=== PATIENT | male | born 1965 | race Caucasian/White ===

== ENCOUNTER → 2017-11-18 13:38 | Outpatient (CLI) | payer OTHER, SELFPAY ==
--- NOTE | 2017-11-18 14:24 | VDLE_ITS ---
Reason For Study: RLE PAIN RIGHT LEFT GSV is normal. CFV is compressible, spontaneous, phasic, CFV is compressible, spontaneous, phasic, competent, and demonstrates normal competent and demonstrates normal augmentation. augmentation. FV is compressible, spontaneous, phasic, competent and demonstrates normal augmentation. POP V is compressible, spontaneous, phasic, competent and demonstrates normal augmentation. T/P Trunk is compressible. PTV is compressible. RT PerV is compressible. Procedure Exam performed in department. The exam was diagnostic. A preliminary report was called and/or faxed to Dr. Ku @ [phone] @ 2:40 pm. Interpretation Summary Deep veins of the right lower extremity are patent and compressible segmentally. There is no evidence of right lower extremity deep vein thrombosis. Valvular competence appears intact within the proximal deep venous system on the right . The right greater saphenous vein appears patent and compressible segmentally. Ordering Physician: Baudilio Ku Referring Physician: Baudilio Ku Performed By: Chante Ferris, AMI, RVT
== END ==
PROVIDERS: Family Provider Family Medicine; PCP Family Medicine; Visit Provider Family Medicine
DX: M79.604 Pain in right leg (principal); R60.9 Edema, unspecified; S80.10XA Contusion of unspecified lower leg, initial encounter
CPT/HCPCS: 93971

== ENCOUNTER → 2018-05-26 05:56 | Outpatient (CLI) | payer OTHER, SELFPAY ==
[2018-05-26 06:37] LABS: AST(SGOT) 27 U/L (15-37); Alanine Aminotransfer ALT/SGPT 50 U/L (16-61); Albumin, Serum 3.7 g/dL (3.2-5.0); Alkaline Phosphatase 94 U/L (45-117); Anion Gap 8 (5-15); BUN 15 mg/dL (7-18); BUN/Creat Ratio 15.3 RATIO (10-20); Bilirubin, Direct 0.17 mg/dL (0.00-0.30); Calcium,Total 8.8 mg/dL (8.5-10.1); Chloride 104 mmol/L (98-107); Cholesterol 196 mg/dL (200); Creatinine, Serum 0.98 mg/dL (0.70-1.30); EST Glomerular Filtration Rate 85 mL/min (>60); Est Glom Filt Rate - Afr Amer 103 mL/min (>60); Globulin 4.6 g/dL (2.2-4.2); Glucose 104 mg/dL (74-106); High Density Lipoprotein 56 mg/dL; Potassium 4.2 mmol/L (3.5-5.1); Protein, Total 8.3 g/dL (6.4-8.2); Sodium Level 142 mmol/L (136-145); Thyroid Stim Hormone (TSH) 2.88 uIU/mL (0.358-3.74); Triglycerides 147 mg/dL; Very Low Density Lipoprotein 29 mg/dL (5-40)
--- NOTE | 2018-05-26 08:43 | STRESSREP ---
Stress Test Report Exercise myocardial perfusion stress test. 53-year-old man with a history of chest pain. Rest stress protocol: Resting EKG demonstrates normal sinus rhythm with a rate of 75 bpm normal intervals are noted resting blood pressure 174/98 mmHg. The patient exercised according to regular Raúl protocol for total duration of 8 minutes completing 2 minutes into stage III of the Raúl protocol. The maximum heart rate attained was 151 bpm which was 90% of maximum predicted heart rate the maximum workload was 10.1 metabolic equivalents. Occasional premature ventricular complexes were noted. At rest there were no ST or T wave changes noted suggest ischemia at peak exercise no ST or T wave changes were noted suggest ischemia. No clinical angina was noted shortness of breath however was noted. The resting blood pressure was 174/98 with a peak blood pressure of 240/110. Hypertensive blood pressure response to exercise was noted. Myocardial perfusion protocol. 14.7 mCi of technetium 99m sestamibi was injected at rest. The patient exercised according to regular Raúl protocol for total duration of 8 minutes attaining 90% of maximum predicted heart rate and a workload of 10.1 metabolic equivalents. Stress and rest images were reconstructed and compared in the short axis vertical and horizontal long axis. Gated images were also obtained pre- Perfusion SPECT analysis: Review of the stress images demonstrate normal uptake of tracer noted in all areas of the myocardium. The resting images similarly demonstrate normal uptake of tracer noted in all areas of the myocardium. No areas of reversibility are noted suggest ischemia. No previous infarct is noted. Gated SPECT analysis: The gated ejection fraction is 59%. Conclusion: Normal exercise myocardial perfusion stress test at a high workload. No clinical angina noted. Hypertensive response to exercise.
== END ==
PROVIDERS: Family Provider Family Medicine; PCP Family Medicine; Referring Provider Internal Medicine Cardiovascular Disease; Visit Provider Internal Medicine Cardiovascular Disease
DX: R07.9 Chest pain, unspecified (principal); I35.9 Nonrheumatic aortic valve disorder, unspecified; I42.9 Cardiomyopathy, unspecified; I10 Essential (primary) hypertension; E78.2 Mixed hyperlipidemia
CPT/HCPCS: 36415; 78452; 80048; 80061; 80076; 84443; 93017; A9500; A4216; J2785

== ENCOUNTER → 2018-06-14 07:34 | Outpatient (CLI) | payer OTHER, SELFPAY ==
--- NOTE | 2018-06-14 07:42 | ECHOD_ITS ---
Reason For Study: MURMUR Procedure This was a 2D Doppler, Color Flow transthoracic echocardiogram. Exam performed in department. Left Ventricle Normal LV size. The estimated ejection fraction is 50 %. Stage 1 diastolic dysfunction. There is borderline global hypokinesis of the left ventricle. Right Ventricle Normal RV size. Normal systolic function. Atria Normal left atrium. Normal right atrium. Mitral Valve Normal mitral valve. Tricuspid Valve Normal tricuspid valve. Aortic Valve Trisinus/trileaflet aortic valve. Mild focal aortic valve calcification. Mild (1+) eccentric aortic valve insufficiency. Pulmonic Valve Normal pulmonic valve. Great Vessels Normal aortic root. The pulmonary artery is normal size. Normal inferior vena cava. Pericardium/Pleural No pericardial effusion. MMode/2D Measurements & Calculations LVIDd: 4.7 cm IVSd: 0.92 cm LVOT diam: 2.1 cm LVIDs: 3.3 cm LVPWd: 0.94 cm LVOT area: 3.5 cm2 RVDd: 4.1 cm FS: 29.3 % Ao root diam: 3.5 cm LAV(MOD-bp): 48.3 ml LVAd ap4: 41.0 cm2 LA dimension: 3.4 cm LAV(MOD-bp) Indexed: 20.9 ml/m2 EDV(MOD-sp4): 143.3 ml LAV(MOD-sp2): 50.0 ml EDV(sp4-el): 146.0 ml LAV(MOD-sp4): 44.7 ml LVAs ap4: 25.2 cm2 ESV(MOD-sp4): 67.9 ml ESV(sp4-el): 69.4 ml EF(MOD-sp4): 52.6 % EF(sp4-el): 52.5 % SV(MOD-sp4): 75.4 ml SV(sp4-el): 76.6 ml LA A4 area: 17.5 cm2 LA dimension(2D): 3.4 cm RA A4 area: 13.5 cm2 Time Measurements MV dec time: 0.20 sec Doppler Measurements & Calculations MV E max jonas: 60.0 cm/sec Lat Peak E' Jonas: 8.3 cm/sec Med Peak E' Jonas: 7.7 cm/sec MV A max jonas: 76.1 cm/sec E/E' lat: 7.2 E/E' med: 7.8 MV E/A: 0.79 Ao V2 max: 257.4 cm/sec AI max jonas: 390.8 cm/sec LV V1 max: 82.4 cm/sec Ao max P.5 mmHg AI max P.1 mmHg LV V1 max P.7 mmHg Ao V2 mean: 192.0 cm/sec AI dec slope: 211.1 cm/sec2 LV V1 mean P.5 mmHg Ao mean P.0 mmHg AI P1/2t: 542.3 msec LV V1 mean: 58.7 cm/sec Ao V2 VTI: 57.1 cm LV V1 VTI: 20.3 cm MALCOM(I,D): 1.2 cm2 MALCOM(V,D): 1.1 cm2 SV(LVOT): 70.5 ml PA V2 max: 92.2 cm/sec Interpretation Summary Normal LV size. The estimated ejection fraction is 50 %. Stage 1 diastolic dysfunction. There is borderline global hypokinesis of the left ventricle. Mild (1+) eccentric aortic valve insufficiency. Ordering Physician: Priyank Gordon Referring Physician: DARIUS VALENTIN Performed By: Leigha Mcginnis RDCS
== END ==
PROVIDERS: Family Provider Family Medicine; PCP Family Medicine; Referring Provider Internal Medicine Cardiovascular Disease; Visit Provider Internal Medicine Cardiovascular Disease
DX: R01.1 Cardiac murmur, unspecified (principal)
CPT/HCPCS: 93306

== ENCOUNTER 2019-05-30 20:14 | Emergency (ER) | payer OTHER, SELFPAY ==
[2019-05-30 20:15] VITALS: BP 153/82; PULSE 57; RESP 24; TEMP 36; O2SAT 99; BMI 33.0
--- NOTE | 2019-05-30 20:30 | EKG12_ITS ---
Test Reason : Blood Pressure : / mmHG Vent. Rate : 068 BPM Atrial Rate : 068 BPM P-R Int : 206 ms QRS Dur : 092 ms QT Int : 418 ms P-R-T Axes : 025 023 030 degrees QTc Int : 444 ms Normal sinus rhythm Normal ECG Confirmed by TIFFANY HERNANDEZ, GIOVANNI ([id number]), marketing editor SHAYAN PRICE ([id number]) on 06/06/2019 11:09:06 AM Referred By: XENIA Confirmed By:OTONIEL ALLEN MD
--- NOTE | 2019-05-30 20:30 | RAD_ITS ---
STUDY: X-RAY CHEST REASON FOR EXAM: Male, 54 years old. Chest pain TECHNIQUE: Frontal and lateral views of the chest COMPARISON: None. FINDINGS: The lungs are clear. There are no pleural effusions. There is no pneumothorax. The heart is normal in size. The visualized osseous structures are within normal limits. RAD/Chest PA and Lateral IMPRESSION: No acute thoracic pathology. Electronically Signed: Donaldo Danielle, at 20:55 EDT Tel , Service support ,
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
[2019-05-30 20:54] LABS: Absolute Lymphocyte Count 1.75 X10^3/uL (0.83-4.51); Absolute Neutrophil Count 3.1 X10^3/uL (2.0-7.7); Basophil# 0.05 X10^3/uL; Basophil% 0.8 % (0-1); Eosinophil# 0.54 X10^3/uL; Eosinophils% 8.3 % (0-5); Hemoglobin 14.9 g/dL (13.0-16.5); Lymphocyte # 1.75 X10^3/ul (4.0); Lymphocyte % 26.9 % (19-41); Mean Corp Hgb Conc 34.7 g/dL (32-36); Mean Corpuscular Hgb 33.3 pg (27.0-32.0); Mean Platelet Vol. 9.2 fl (6.2-12.0); Monocyte# 1.06 X10^3/uL; Monocyte% 16.3 % (0-10); NRBC Flagged by Analyzer 0 % (0-5); Neutrophil # 3.07 X10^3/uL (2.7-7.7); Neutrophil % 47.2 % (47-70); Platelet Count 227 K/mm3 (150-450); RBC Distribution Width CV 11.8 % (11.6-14.6); Red Blood Count 4.48 M/mm3 (4.6-6.2); White Blood Count 6.5 K/mm3 (4.4-11.0)
[2019-05-30 20:57] VITALS: PULSE 72; RESP 16
[2019-05-30] MEDS: Albuterol 2.5 MG/3 ML VIAL.NEB. INHALATION ×3 (21:02→23:17)
[2019-05-30] MEDS: Ipratropium/Albuterol Sulfate 3 ML AMPUL.NEB INHALATION (21:02)
[2019-05-30 21:06] LABS: Anion Gap 9 (5-15); BUN 13 mg/dL (7-18); BUN/Creat Ratio 13.4 RATIO (10-20); Calcium,Total 9.3 mg/dL (8.5-10.1); Chloride 103 mmol/L (98-107); Creatinine, Serum 0.97 mg/dL (0.70-1.30); EST Glomerular Filtration Rate 86 mL/min (>60); Est Glom Filt Rate - Afr Amer 104 mL/min (>60); Estimated Creatinine Clearance 88.85 ml/min; Glucose 82 mg/dL (74-106); Potassium 3.6 mmol/L (3.5-5.1); Sodium Level 139 mmol/L (136-145)
[2019-05-30 21:23] LABS: BNP,B-Type NATRIURETIC PEPTIDE 16.9 pg/mL (0-100)
[2019-05-30] MEDS: MethylPREDNISolone 125 MG/2 ML Vial IV (22:17)
[2019-05-30] MEDS: Terbutaline 1 MG/ML Vial 0.25 MG SC (22:17)
[2019-05-30 22:25] VITALS: BP 148/80; PULSE 72; RESP 14; O2SAT 96
[2019-05-30 22:55] VITALS: PULSE 78; RESP 14
[2019-05-31 00:17] VITALS: BP 131/74; PULSE 78; RESP 15; O2SAT 94
== END 2019-05-31 00:20 | disposition home or self-care (01) ==
PROVIDERS: Emergency Provider Emergency Medicine; Family Provider Family Medicine; PCP Family Medicine
DX: J45.901 Unspecified asthma with (acute) exacerbation (principal); R07.89 Other chest pain; R60.0 Localized edema; I10 Essential (primary) hypertension; Z79.51 Long term (current) use of inhaled steroids; Z79.899 Other long term (current) drug therapy
CPT/HCPCS: 71046; 80048; 83880; 84484; 85025; 93005; 94640; 96365; 96366; 96372; 96375; 99283; J7050; A4216

== ENCOUNTER → 2020-04-14 07:41 | Outpatient (CLI) | payer OTHER, SELFPAY ==
--- NOTE | 2020-04-14 07:46 | VDLE_ITS ---
Reason For Study: Rt leg swelling RIGHT CFV is compressible, spontaneous, phasic, competent and demonstrates normal augmentation. FV is compressible, spontaneous, phasic, competent and demonstrates normal augmentation. POP V is compressible, spontaneous, phasic, competent and demonstrates normal augmentation. T/P Trunk is compressible. PTV is compressible. RT PerV is compressible. SFJ is competent and measures 0.57 x 0.55 cm. GSV proximal thigh measures 0.29 x 0.30 cm. GSV above knee is competent. GSV at knee measures 0.29 x 0.29 cm. GSV below knee is INCOMPETENT for greater than 0.5 seconds. SSV at junction is competent and measures 0.41 x 0.44 cm. Procedure Exam performed in department. Interpretation Summary Deep veins of the right lower extremity are patent and compressible segmentally. There is no evidence of right lower extremity deep vein thrombosis. Valvular competence appears intact within the proximal deep venous system on the right . The right great saphenous vein appears patent and compressible segmentally. The right sapheno-femoral junction is competent . The right great saphenous vein appears competent above the knee. The right great saphenous vein appears incompetent below the knee. The right small saphenous vein is patent and competent. Ordering Physician: Baudilio Ku Referring Physician: Baudilio Ku Performed By: Stephanie Magallon RVT
== END ==
PROVIDERS: PCP Family Medicine; Referring Provider Family Medicine; Visit Provider Family Medicine
DX: R60.0 Localized edema (principal); I87.2 Venous insufficiency (chronic) (peripheral)
CPT/HCPCS: 93971

== ENCOUNTER 2021-04-17 08:24 | Inpatient (IN) | payer OTHER, SELFPAY ==
[2021-04-17] VITALS (10 sets, daily range): BP systolic 118–152; BP diastolic 76–101; PULSE 90–111; RESP 18–28; TEMP 36.3–37.1; O2SAT 90–95; BMI 34.5; BMI 32.1
--- NOTE | 2021-04-17 09:27 | RAD_ITS ---
STUDY: X-RAY CHEST REASON FOR EXAM: Male, 55 years old. dyspnea TECHNIQUE: Single AP portable view of the chest. COMPARISON: 05/30/2019 FINDINGS: The lungs are clear and expanded. There is no demonstrated pleural abnormality. Normal size heart. Normal mediastinum and tosin. Normal visualized pulmonary arteries. Normal visualized aortic arch and descending thoracic aorta. Normal visualized thoracic spine. Normal visualized ribs, clavicles, and shoulders. There is no demonstrated abnormality of the visualized soft tissue structures of the upper abdomen. RAD/Chest 1 View (Portable) IMPRESSION: Normal x-ray examination of the chest. Electronically Signed: Kamari Hernandez MD at 10:26 EDT Tel , Service support ,
--- NOTE | 2021-04-17 09:28 | EKG12_ITS ---
Test Reason : SOB Blood Pressure : / mmHG Vent. Rate : 095 BPM Atrial Rate : 095 BPM P-R Int : 212 ms QRS Dur : 096 ms QT Int : 386 ms P-R-T Axes : 043 022 011 degrees QTc Int : 485 ms Sinus rhythm with 1st degree A-V block Prolonged QT Abnormal ECG Confirmed by TIFFANY HERNANDEZ, GIOVANNI ([id number]), film or videotape editor SHAYAN PRICE ([id number]) on 04/21/2021 8:33:31 AM Referred By: BERNARDO Confirmed By:OTONIEL ALLEN MD
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
[2021-04-17 10:15] LABS: Absolute Lymphocyte Count 0.68 X10^3/uL (0.83-4.51); Absolute Neutrophil Count 12.3 X10^3/uL (2.0-7.7); Basophil# 0.02 X10^3/uL; Basophil% 0.1 % (0-1); Hematocrit 44.6 % (40-54); Hemoglobin 15.1 g/dL (13.0-16.5); Lymphocyte # 0.68 X10^3/ul (0.83-4.51); Lymphocyte % 4.8 % (19-41); Mean Corp Hgb Conc 33.9 g/dL (32-36); Mean Corpuscular Hgb 32.1 pg (27.0-32.0); Mean Corpuscular Volume 94.7 fL (80-94); Mean Platelet Vol. 9.8 fl (6.2-12.0); Monocyte# 0.88 X10^3/uL; Monocyte% 6.2 % (0-10); NRBC Flagged by Analyzer 0 % (0-5); Neutrophil # 12.28 X10^3/uL (2.7-7.7); Neutrophil % 87.3 % (47-70); Platelet Count 451 K/mm3 (150-450); RBC Distribution Width CV 12.1 % (11.6-14.6); RBC Distribution Width SD 42.3 fl (35.1-43.9); Red Blood Count 4.71 M/mm3 (4.6-6.2); White Blood Count 14.1 K/mm3 (4.4-11.0)
[2021-04-17] MEDS: 0.9% Normal Saline 1,000 ML 15 ML IV (10:18)
[2021-04-17 10:42] LABS: D-Dimer Quantitative (DVT/PE) 7.14 FEU/ug/m (0.27-0.49)
[2021-04-17 10:44] LABS: Anion Gap 5 (5-15); BUN 16 mg/dL (7-18); BUN/Creat Ratio 23.4 RATIO (10-20); Calcium,Total 9.7 mg/dL (8.5-10.1); Chloride 106 mmol/L (98-107); Creatinine, Serum 0.68 mg/dL (0.70-1.30); EST Glomerular Filtration Rate 127 mL/min (>60); Est Glom Filt Rate - Afr Amer 153 mL/min (>60); Estimated Creatinine Clearance 129.19 ml/min; Glucose 138 mg/dL (74-106); Potassium 3.6 mmol/L (3.5-5.1); Sodium Level 140 mmol/L (136-145); Troponin-I HS 188 pg/mL (3.0-78.0)
--- NOTE | 2021-04-17 10:44 | CT_ITS ---
STUDY: CTA CHEST REASON FOR EXAM: Male, 55 years old. dyspnea elevated D-dimer RADIATION DOSAGE (If Supplied By Facility): CTDIvol = ( 13.14 ) mGy, DLP = ( 482.03 ) mGycm TECHNIQUE: The examination was performed with the intravenous administration of IV 100mL Isovue-370. Post-processing of the angiographic images was performed, with multiplanar reformation and 3D reconstruction. Individualized dose optimization techniques were used for this CT. COMPARISON: Chest x-ray earlier today FINDINGS: Normal enhancement of the main pulmonary artery and right and left pulmonary arteries. Normal enhancement of the bilateral peripheral pulmonary arteries. Multiple filling defects within segmental pulmonary artery branches in both lungs consistent with bilateral pulmonary emboli. The largest embolus is in the distal left main pulmonary artery and extends into the left ascending and descending pulmonary arteries. Normal thoracic aorta and visualized great vessels. There is no demonstrated aortic dissection. Normal heart and pericardium. Normal mediastinum. Normal hilar regions. Normal visualized trachea and bronchi. The lungs are well expanded. Bilateral patchy groundglass opacities consistent with subsegmental atelectasis or pneumonitis. Normal pleura. Normal chest wall structures. Normal osseous structures. Normal visualized upper abdomen. CT/CTA Chest W/WO Contrast IMPRESSION: 1. Positive for bilateral segmental pulmonary emboli. 2. Subsegmental atelectasis or pneumonitis. Commonly reported imaging features October 19 pneumonia are present. Other processes such as influenza pneumonia organized pneumonia as can be seen with drug toxicity or connective tissue disease can cause a similar imaging pattern. N.B. : The above Results were Read Back by Kamari Hernandez MD to Justino Black MD, and understanding confirmed on 04/17/2021 11:41:21 (ET). Electronically Signed: Kamari Hernandez MD at 11:41 EDT Tel , Service support ,
[2021-04-17] MEDS: levoFLOXacin IV 750 MG/150 ML BAG 100 MG IV (12:35)
[2021-04-17] MEDS: Enoxaparin 120 MG/0.8 ML Syringe SC (12:54)
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
[2021-04-17] MEDS: dexAMETHasone 2 MG TABLET 6 MG PO (17:30)
--- NOTE | 2021-04-17 19:18 | NURSING ---
pandemic charting started at 192
[2021-04-17] MEDS: Ipratropium/Albuterol Sulfate 3 ML AMPUL.NEB INHALATION (19:48)
[2021-04-17] MEDS: Budesonide Respules 0.5 MG/2 ML AMPUL.NEB. INHALATION (19:49)
[2021-04-17] MEDS: Carvedilol 25 MG Tablet PO (21:51)
[2021-04-17] MEDS: APIXABAN 5 MG TABLET 10 MG PO (21:52)
[2021-04-18] VITALS (14 sets, daily range): BP systolic 112–141; BP diastolic 65–97; PULSE 45–90; RESP 16–18; TEMP 36.3–36.6; O2SAT 89–96
[2021-04-18 06:56] LABS: Absolute Lymphocyte Count 0.78 X10^3/uL (0.83-4.51); Absolute Neutrophil Count 9.3 X10^3/uL (2.0-7.7); Basophil# 0.01 X10^3/uL; Basophil% 0.1 % (0-1); Hematocrit 41.7 % (40-54); Hemoglobin 13.8 g/dL (13.0-16.5); Lymphocyte # 0.78 X10^3/ul (0.83-4.51); Lymphocyte % 7.1 % (19-41); Mean Corp Hgb Conc 33.1 g/dL (32-36); Mean Corpuscular Hgb 31.8 pg (27.0-32.0); Mean Corpuscular Volume 96.1 fL (80-94); Mean Platelet Vol. 9.8 fl (6.2-12.0); Monocyte# 0.67 X10^3/uL; Monocyte% 6.1 % (0-10); NRBC Flagged by Analyzer 0 % (0-5); Neutrophil % 85.2 % (47-70); Platelet Count 430 K/mm3 (150-450); RBC Distribution Width CV 12.2 % (11.6-14.6); RBC Distribution Width SD 43.5 fl (35.1-43.9); Red Blood Count 4.34 M/mm3 (4.6-6.2); White Blood Count 10.9 K/mm3 (4.4-11.0)
[2021-04-18] MEDS: Budesonide Respules 0.5 MG/2 ML AMPUL.NEB. INHALATION ×2 (07:18→19:30)
[2021-04-18] MEDS: Ipratropium/Albuterol Sulfate 3 ML AMPUL.NEB INHALATION ×3 (07:18→19:30)
[2021-04-18 07:34] LABS: Anion Gap 8 (5-15); BUN 19 mg/dL (7-18); BUN/Creat Ratio 25.2 RATIO (10-20); Calcium,Total 9.1 mg/dL (8.5-10.1); Chloride 105 mmol/L (98-107); Creatinine, Serum 0.75 mg/dL (0.70-1.30); EST Glomerular Filtration Rate 113 mL/min (>60); Est Glom Filt Rate - Afr Amer 137 mL/min (>60); Estimated Creatinine Clearance 117.13 ml/min; Glucose 139 mg/dL (74-106); Potassium 3.5 mmol/L (3.5-5.1); Sodium Level 140 mmol/L (136-145)
[2021-04-18] MEDS: APIXABAN 5 MG TABLET 10 MG PO ×2 (08:53→19:52)
[2021-04-18] MEDS: amLODIPine 10 MG Tablet PO (08:55)
[2021-04-18] MEDS: Carvedilol 25 MG Tablet PO ×2 (08:55→19:56)
[2021-04-18] MEDS: Losartan Potassium 100 MG Tablet PO (08:55)
[2021-04-18] MEDS: hydroCHLOROthiazide 25 MG Tablet PO (08:55)
[2021-04-18] MEDS: dexAMETHasone 2 MG TABLET 6 MG PO (08:55)
[2021-04-18] MEDS: Montelukast 10 MG Tablet PO (08:55)
--- NOTE | 2021-04-18 14:44 | PCM.PN.HOSP ---
Subjective Subjective Doing about the same as when he came in. Still short of breath when he takes the oxygen off. We will plan for an ambulatory pulse ox in the morning Objective Data Objective Data Vital Signs: Vital Signs Temp Pulse Resp BP Pulse Ox 97.7 F L 88 18 141/97 H 93 04/18/21 08:51 04/18/21 13:11 04/18/21 13:11 04/18/21 08:51 04/18/21 11:46 Oxygen Flow Rate (L/min) 2 Oxygen Delivery Method Room Air Weight: 230 lb 2.601 oz Body Mass Index (BMI) 32.1 Intake & Output: Intake and Output for Last 24 Hours 04/17/21 04/18/21 04/19/21 03:59 03:59 03:59 Intake Total 692.75 / 692.75 620 / 620 Balance 692.75 / 692.75 620 / 620 Medical Nutrition Assessment Dietitian: Malnutrition Criteria Met Start: 04/17/21 15:09 Freq: Status: Active Protocol: Document 04/17/21 15:09 BECKI (Rec: 04/17/21 15:09 [facility] [id number]) Nutrition Malnutrition Evidence of Malnutrition Exists Yes Malnutrition (severe): Acute Illness/Injury Evidenced By Suboptimal Energy Intake ( Severe),Weight Loss (Severe) Clinical Problem Acute Disease or Injury Related Malnutrition Etiology related to Covid PNA and having inadequate energy to meet pt estimated nutritional needs Signs/Symptoms pt having <50% po intake and 5 .9% wt loss x >2 weeks Status Active Problem Recommendation Dietitian Recommendations/Changes Will change diet to liberal Regular with ensure enlive at meals d/t signs and symptoms of malnutrition. Lab / Micro Data Result Diagrams: 04/18/21 06:20 04/18/21 06:20 Labs: Laboratory Results - last 24 hr 04/18/21 06:20: WBC 10.9, RBC 4.34 L, Hgb 13.8, Hct 41.7, MCV 96.1 H, MCH 31.8, MCHC 33.1, RDW Std Deviation 43.5, RDW Coeff of Colin 12.2, Plt Count 430, MPV 9.8, Immature Gran % (Auto) 1.500 H, Neut % (Auto) 85.2 H, Lymph % (Auto) 7.1 L, [place] % (Auto) 6.1, Eos % (Auto) 0.0, Baso % (Auto) 0.1, Absolute Neuts (auto) 9.3 H, Absolute Lymphs (auto) 0.78 L, Nucleated RBC % 0 04/18/21 06:20: Sodium 140, Potassium 3.5, Chloride 105, Carbon Dioxide 27.0, Anion Gap 8, BUN 19 H, Creatinine 0.75, Estim Creat Clear Calc 117.13, Est GFR (MDRD) Af Amer 137, Est GFR (MDRD) Non-Af 113, BUN/Creatinine Ratio 25.2 H, Glucose 139 H, Calcium 9.1 Micro: Microbiology 04/17/21 17:37 Sputum, Expectorated/Coughed Gram Stain - Final 04/17/21 17:37 Sputum, Expectorated/Coughed Respiratory Culture - Preliminary Alpha Hemolytic Streptococcus Physical Exam Const alert, oriented x3 and no apparent distress General Appearance: cooperative HEENT normocephalic Eyes PERRL, EOMs intact bilaterally and conjunctivae normal Neck supple and no JVD Resp normal respiratory effort, no retractions and no use of accessory muscles Auscultation: diminished lung sounds; Negative for crackles, rales, rhonchi or wheezes Cardio regular rate, regular rhythm, S1 normal heart sound, S2 normal heart sound and no murmurs GI soft to palpation, non-tender and non-distended; Negative for hepatosplenomegaly Extremity no clubbing, cyanosis or edema Skin no rashes or lesions noted Neuro no focal motor deficits and no sensory deficits noted Psych affect normal Appearance: appropriate Assessment & Plan Assessment/Plan (1) Acute respiratory failure with hypoxia: (2) Pulmonary emboli: (3) Pneumonia due to COVID-19 virus: PLAN: 1. Acute hypoxic respiratory failure secondary to COVID-19 pneumonia and bilateral PEs with an elevated troponin -He has been tachycardic and hypoxic down to 87-88% especially with ambulation -Hypoxia resolved with 2 L nasal cannula -The combination of tachycardia with his hypoxia/in the setting of PEs is likely causing right-sided heart strain, will obtain an echo to confirm -He is unvaccinated and started having symptoms on 04/01/2021 he will be out of quarantine on 04/20/2021 -We will continue with Decadron, he is outside of the window for remdesivir -Received therapeutic Lovenox in the ED and will be started on Eliquis this evening 2. Asthma -We will continue with his home inhalers -Continue with Decadron 3. HTN/HLD -We will continue with his home blood pressure medications DVT: Eliquis Charges/Coding Visit Charges Inpatient E&M: 23338 Subs Hosp L2
--- NOTE | 2021-04-18 16:16 | CASEMGMT ---
LARISA BERGER called patient in room for initial transition planning/care coordination assessment. LARISA BERGER introduced self and role at [facility]. Patient lying in bed, alert and oriented. Patient willing to participate in assessment and is able to answer all questions appropriately. Care providers, pharmacy, and demographics verified. Patient wishes to discharge home, denies need for home health at this time, will monitor for home oxygen. Patient states he has no further needs or concerns at this time. CM to follow for discharge planning needs that may arise. PCP: [facility] Preferred Pharmacy: [facility] Ronna Insurance: [employer] Prescription Benefit: yes Living Will/HPOA: none LNOK: Living Arrangements: Patient lives with in a 2 story home with bed and bath on first floor. Patient states he is independent at home. is also sick with covid and isolating at home. Transportation: self, DME/HHC: patient states he has nebulizer at home. Patient denies previous HHC. Patient has no preferences for DME and agreeable to [facility] after review list. Patient had covid testing completed at [facility] Disposition Plan: Patient to discharge home with family support and follow-up plans in place. Will monitor for HHC. Stephanie ALEXANDER, RN, CM
[2021-04-18] MEDS: Acetaminophen 325 MG Tablet 650 MG PO (17:28)
[2021-04-18] MEDS: Ceftriaxone 1 GM/50 ML BAG IV (17:29)
[2021-04-19 02:00] VITALS: BP 127/68; PULSE 66; RESP 16; TEMP 36.3; O2SAT 93
[2021-04-19 03:00] VITALS: PULSE 68
[2021-04-19 06:35] VITALS: PULSE 73
[2021-04-19] MEDS: Ipratropium/Albuterol Sulfate 3 ML AMPUL.NEB INHALATION (07:31)
[2021-04-19 07:32] VITALS: PULSE 64; RESP 18; O2SAT 95
[2021-04-19] MEDS: Budesonide Respules 0.5 MG/2 ML AMPUL.NEB. INHALATION (07:32)
[2021-04-19 08:48] VITALS: BP 129/79; PULSE 64; RESP 18; TEMP 36.3; O2SAT 95
[2021-04-19] MEDS: Ceftriaxone 1 GM/50 ML BAG IV (08:53)
[2021-04-19] MEDS: Carvedilol 25 MG Tablet PO (08:54)
[2021-04-19] MEDS: amLODIPine 10 MG Tablet PO (08:54)
[2021-04-19] MEDS: APIXABAN 5 MG TABLET 10 MG PO (08:54)
[2021-04-19] MEDS: dexAMETHasone 2 MG TABLET 6 MG PO (08:54)
[2021-04-19] MEDS: hydroCHLOROthiazide 25 MG Tablet PO (08:54)
[2021-04-19] MEDS: 0.9% Saline Lock 10 ML Syringe IV (08:54)
[2021-04-19] MEDS: Losartan Potassium 100 MG Tablet PO (08:55)
[2021-04-19] MEDS: Montelukast 10 MG Tablet PO (08:55)
--- NOTE | 2021-04-19 11:12 | PCM.DC ---
Discharge Instructions Diet Discharge Diet: Low fat / Low cholesterol Activity Discharge Activity: Return to Normal Activity Dressing / Incision Call your doctor if you observe: Fever of 101 or Higher, Shortness of breath, Dizziness, Swelling in the ankles, Chest pain and Increased palpitations (irregular heartbeat) Follow Up Care Test Results: Test results from this visit will be discussed in further detail at your follow-up appointment, if applicable. Discharge Plan Admission Admit Date/Time: 04/17/21 12:07 Attending Provider: Mohan Rooney Primary Care Provider: Baudilio Ku Instructions Patient Instructions: ED Chest Pain, Noncardiac Additional Instructions / Restrictions: Quarantine will be completed on 04/20/2021. Recommend following up with hematology as an outpatient for evaluation of the blood thinner. Discharge Orders/Prescriptions Prescriptions: New Eliquis 5 mg Tablet 10 mg PO BID Qty: 60 RF: 2 dexamethasone 2 mg Tablet 6 mg PO DAILY Qty: 8 RF: 0 amoxicillin-pot clavulanate [Augmentin] 875-125 mg tablet 1 tab PO Q12H Qty: 10 RF: 0 Continued carvedilol 25 MG tablet 25 mg PO BID RF: 0 amlodipine 10 MG tablet 10 mg PO DAILY RF: 0 montelukast 10 MG tablet 10 mg PO DAILY RF: 0 losartan 100 MG tablet 100 mg PO DAILY RF: 0 albuterol sulfate 1 INHALER inhaler 2 puff inhalation Q4H PRN PRN (Reason: Sob &/Or Wheezing) RF: 0 ipratropium-albuterol 0.5 mg-3 mg(2.5 mg base)/3 mL Solution For Nebulization 3 ml INHALATION Q4H PRN (Reason: sob) RF: 0 Trelegy Ellipta 200-62.5-25 mcg Blister With Device 1 inh INHALATION DAILY RF: 0 hydrochlorothiazide 25 mg tablet 25 mg PO DAILY Qty: 90 RF: 3 Referrals / Follow Up: Genet Dixon MD [STAFF PHYSICIAN] - Within 3 Months Baudilio Ku DO [Primary Care Provider] - Within 1 Week Disposition Disposition (needs filled in before D/C Order can be placed): Home, Self Care
--- NOTE | 2021-04-19 13:12 | PCM.DC.SUM ---
Providers Date of Admission: 04/17/21 Primary Care Physician: Dr. Baudilio Ku DO Reason For Visit: COVID PNEUMONIA WITH BILATERAL PE Diagnosis Discharge Diagnosis (1) Acute respiratory failure with hypoxia: Status: Acute Code(s): J96.01 - Acute respiratory failure with hypoxia (2) Pulmonary emboli: Status: Acute Code(s): I26.99 - Other pulmonary embolism without acute cor pulmonale (3) Pneumonia due to COVID-19 virus: Status: Acute Code(s): U07.1 - COVID-19; J12.82 - Pneumonia due to coronavirus disease 2019 Medications at Discharge Home Medications amlodipine 10 mg PO DAILY 08/05/17 carvedilol 25 mg PO BID 08/05/17 losartan 100 mg PO DAILY 08/05/17 montelukast 10 mg PO DAILY 08/05/17 albuterol sulfate 2 puff INHALATION Q4H PRN PRN 05/30/19 hydrochlorothiazide 25 mg tablet 25 mg PO DAILY #90 tab 07/20/19 Trelegy Ellipta 1 inh INHALATION DAILY 04/17/21 ipratropium-albuterol 3 ml INHALATION Q4H PRN 04/17/21 amoxicillin-pot clavulanate [Augmentin] 1 tab PO Q12H #10 tab 04/19/21 apixaban [Eliquis] 10 mg PO BID #60 tab 04/19/21 dexamethasone [Decadron] 6 mg PO DAILY #8 tab 04/19/21 Hospital Course Operations None Procedures None Summary of Care Provided Minutes Spent on Discharge: 35 Hospital Course: Per HPI: ALISTAIR FUENTES, is a 55 M who presents to the hospital with worsening shortness of breath. He started having symptoms of Covid on 04/01/2021, and tested positive on 04/09/2021. His and other family members have also tested positive for Covid recently. Since his positive Covid test he has become more and more short of breath, he does have a history of asthma and presented to the ER. He was hypoxic with ambulation down to 88% and required 2 L nasal cannula to maintain his oxygen saturations at 94%. And evaluation in the ER, he had an elevated D-dimer consistent with blood clots and had a CTA and was found to have bilateral segmental blood clots. He was also found to have an elevated troponin. Hospital Course: 1. Acute hypoxic respiratory failure secondary to COVID-19 pneumonia and bilateral PEs with an elevated [id number] male presented to the hospital with bilateral PEs. He tested positive for Covid on 04/09/2021, symptoms started on 04/01/2021. He does complete quarantine tomorrow. He was started on Decadron was outside the window for remdesivir. He was also started on Eliquis dosing for his PEs and I do recommend that he follow-up with medical scientific officer as an outpatient. An echo was ordered on admission however for some reason this was not done and given the fact that it Tuesday and he did not want to wait till Tuesday to have this done therefore he was discharged home since he was stable and not requiring any oxygen on discharge. Did have an ambulatory pulse ox which also did not demonstrate a need for oxygen. He did have sputum culture with test positive for Streptococcus therefore he was discharged on Augmentin as well for 5 days total. I recommend he follow-up with his PCP in 3 to 5 days. I discussed with him the plan for discharge today and he expressed understanding of the risk and benefits and still wants to go home. 2. Asthma, hypertension, hyperlipidemia chronic medical conditions which complicate his care. His home medications were continued where appropriate Physical Exam Const alert, oriented x3 and no apparent distress General Appearance: cooperative HEENT normocephalic Eyes PERRL, EOMs intact bilaterally and conjunctivae normal Neck supple and no JVD Resp normal respiratory effort, no retractions and no use of accessory muscles Auscultation: diminished lung sounds; Negative for crackles, rales, rhonchi or wheezes Cardio regular rate, regular rhythm, S1 normal heart sound, S2 normal heart sound and no murmurs GI soft to palpation, non-tender and non-distended; Negative for hepatosplenomegaly Extremity no clubbing, cyanosis or edema Skin no rashes or lesions noted Neuro no focal motor deficits and no sensory deficits noted Psych affect normal Appearance: appropriate Weight / BMI Weight Weight: 230 lb 2.601 oz Body Mass Index (BMI) 32.1 ABG / Lab / Microbiology Data Result Diagrams: 04/18/21 06:20 04/18/21 06:20 Microbiology: Microbiology 04/17/21 17:37 Sputum, Expectorated/Coughed Gram Stain - Final 04/17/21 17:37 Sputum, Expectorated/Coughed Respiratory Culture - Preliminary Alpha Hemolytic Streptococcus 04/17/21 10:20 Blood Culture (Wb) - Left Hand Blood Culture - Preliminary No growth in 48 hours. 04/17/21 09:55 Blood Culture (Wb) - Anticubital Right Blood Culture - Preliminary No growth in 48 hours. D/C Instructions Discharge Diet: Low fat / Low cholesterol Call your doctor if you observe: Fever of 101 or Higher, Shortness of breath, Dizziness, Swelling in the ankles, Chest pain and Increased palpitations (irregular heartbeat) Meaningful Use Info Meaningful Use Diagnoses (Choose all that apply): None applicable Discharge Plan Admission Admit Date/Time: 04/17/21 12:07 Attending Provider: Mohan Rooney Primary Care Provider: Baudilio Ku Instructions Patient Instructions: ED Chest Pain, Noncardiac Additional Instructions / Restrictions: Quarantine will be completed on 04/20/2021. Recommend following up with hematology as an outpatient for evaluation of the blood thinner. Discharge Orders/Prescriptions Prescriptions: New amoxicillin-pot clavulanate [Augmentin] 875-125 mg tablet 1 tab PO Q12H Qty: 10 RF: 0 Eliquis 5 mg tablet 10 mg PO BID Qty: 60 RF: 2 dexamethasone [Decadron] 6 mg tablet 6 mg PO DAILY Qty: 8 RF: 0 Continued carvedilol 25 MG tablet 25 mg PO BID RF: 0 amlodipine 10 MG tablet 10 mg PO DAILY RF: 0 montelukast 10 MG tablet 10 mg PO DAILY RF: 0 losartan 100 MG tablet 100 mg PO DAILY RF: 0 albuterol sulfate 1 INHALER inhaler 2 puff inhalation Q4H PRN PRN (Reason: Sob &/Or Wheezing) RF: 0 ipratropium-albuterol 0.5 mg-3 mg(2.5 mg base)/3 mL Solution For Nebulization 3 ml INHALATION Q4H PRN (Reason: sob) RF: 0 Trelegy Ellipta 200-62.5-25 mcg Blister With Device 1 inh INHALATION DAILY RF: 0 hydrochlorothiazide 25 mg tablet 25 mg PO DAILY Qty: 90 RF: 3 Referrals / Follow Up: Genet Dixon MD [STAFF PHYSICIAN] - Within 3 Months Baudilio Ku DO [Primary Care Provider] - Within 1 Week Disposition Disposition (needs filled in before D/C Order can be placed): Home, Self Care Charges/Coding Visit Charges Inpatient E&M: 37216 Disch Hosp
--- NOTE | 2021-04-21 14:56 | CASEMGMT ---
LARISA BERGER Discharge Follow-up Phone Call: SHABNAM: Desmond Strata: 3 Call Date: 04/21/21 Discharge Date: 04/19/21 Time of Call: 1455 Duration: 5 min Admitting Diagnosis: Covid LARISA BERGER completed follow-up phone call after recent hospitalization. Patient states he is doing much better and his breathing has been well. Patient had no questions regarding discharge instructions. Patient had difficulty at first getting prescriptions fill as his pharmacy, [facility], was closed on Tuesday. Was able to get prescriptions fill at [facility] in [place]. Patient had no further questions or concerns at this time.
== END 2021-04-19 12:54 | disposition home or self-care (01) | DRG 177 ==
LOC: ED 11:51 → PCU 12:48
PROVIDERS: Admitting Provider Family Medicine; Emergency Provider Emergency Medicine; PCP Family Medicine; Visit Provider Family Medicine
DX: U07.1 COVID-19 (principal); J12.82 Pneumonia due to coronavirus disease 2019; I26.99 Other pulmonary embolism without acute cor pulmonale; J45.909 Unspecified asthma, uncomplicated; K21.9 Gastro-esophageal reflux disease without esophagitis; I10 Essential (primary) hypertension; R06.89 Other abnormalities of breathing; Z79.899 Other long term (current) drug therapy; Z79.51 Long term (current) use of inhaled steroids; Z28.3 Underimmunization status; E78.5 Hyperlipidemia, unspecified
CPT/HCPCS: 36415; 71045; 71275; 80048; 84484; 85025; 85379; 87040; 87070; 87077; 87186; 87205; 93005; 94640; 97802; 99284; J7030; Q9967; A4216

== ENCOUNTER → 2021-06-03 13:30 | Outpatient (CLI) | payer OTHER, SELFPAY ==
--- NOTE | 2021-06-03 13:34 | VDLE_ITS ---
Reason For Study: EDEMA RIGHT GSV is normal. CFV is compressible, spontaneous, phasic, competent and demonstrates normal augmentation. FV is compressible, spontaneous, phasic, competent and demonstrates normal augmentation. POP V is compressible, spontaneous, phasic, competent and demonstrates normal augmentation. T/P Trunk is compressible. PTV is compressible. RT PerV is compressible. Procedure This is a venous duplex using B-mode, color flow and spectral Doppler. Exam performed in department. The exam was diagnostic. A preliminary report was called and/or faxed to [facility]. VL/Venous Duplex US, Unilateral Interpretation Summary There is no evidence of right lower extremity deep vein thrombosis. Right great saphenous vein appears patent and compressible segmentally. Ordering Physician: CHANCE HAYDEN Referring Physician: Baudilio Ku Performed By: Chante Ferris RDCS, RVT
== END ==
PROVIDERS: PCP Family Medicine
DX: R60.0 Localized edema (principal)
CPT/HCPCS: 93971

== ENCOUNTER 2021-09-19 18:19 | Emergency (ER) | payer OTHER, SELFPAY ==
[2021-09-19 18:20] VITALS: BP 133/83; PULSE 80; RESP 18; TEMP 36.2; O2SAT 95; BMI 34.8
--- NOTE | 2021-09-19 18:32 | CT_ITS ---
HISTORY: Trauma, status post fall from ladder. EXAMINATION: CT Head or Brain W/O Contrast Injection TECHNIQUE: Multiple axial images were obtained of the head without intravenous contrast. A radiation dose optimization technique was used for this scan. IV Contrast dosage and agent: None. COMPARISON: None FINDINGS: BRAIN PARENCHYMA: No intra- or extra-axial hemorrhage. No evidence of acute infarct. No intracranial mass or mass effect. There is preservation of the more/white matter interface. Posterior fossa structures are unremarkable. CSF SPACES: Appropriate for age. No hydrocephalus. Basal cisterns are patent. CALVARIUM, SKULL BASE, PARANASAL SINUSES AND MASTOID AIR CELLS: Intact calvarium. No acute disease within imaged paranasal sinuses. Mastoid air cellls are well pneumatized. ORBITS: Unremarkable as visualized. CT/Brain/Head without Contrast IMPRESSION: No evidence of acute intracranial abnormality. Individualized dose optimization techniques were used for this CT. at 1957 Reported and signed by: Baudilio Spann MD Electronically Signed: Baudilio Spann MD at 19:55 EST ,
--- NOTE | 2021-09-19 18:32 | EKG12_ITS ---
Test Reason : FALL Blood Pressure : / mmHG Vent. Rate : 078 BPM Atrial Rate : 078 BPM P-R Int : 218 ms QRS Dur : 100 ms QT Int : 384 ms P-R-T Axes : 059 041 040 degrees QTc Int : 437 ms Sinus rhythm with 1st degree A-V block Otherwise normal ECG Confirmed by ANA HERNANDEZ, ZO ([id number]), assistant film editor SHAYAN PRICE ([id number]) on 09/21/2021 10:20:37 AM Referred By: BERNARDO Confirmed By:ZO PEREZ MD
--- NOTE | 2021-09-19 18:33 | CT_ITS ---
HISTORY: Trauma TECHNIQUE: Helically acquired images were obtained of the cervical spine. 2-D reformatted images were reviewed. A radiation dose optimization technique was used for the scan. # of images incl. paperwork: 464. IV contrast dosage and agent: None. COMPARISON: None. FINDINGS: VERTEBRAE: No fracture identified. Vertebral body heights are maintained. No suspicious osseous lesion identified. Hypertrophic facet changes on the right at C4-5. ALIGNMENT: No significant anterior or posterior subluxation. Preservation of the cervical lordosis. INTERVERTEBRAL DISCS: Intervertebral disc heights preserved. No significant spinal canal stenosis. SOFT TISSUES: No prevertebral soft tissue thickening. Couple small calcified nodules within left lobe of thyroid gland, largest measuring 12 mm in diameter. LUNG APICES: Unremarkable as visualized. CT/Spine Cervical without Contras IMPRESSION: No evidence of acute cervical spinal injury. Small calcified thyroid nodules. Follow-up as clinically warranted. Individualized dose optimization techniques were used for this CT. at 1959 Reported and signed by: Baudilio Spann MD Electronically Signed: Baudilio Spann MD at 19:58 EST ,
--- NOTE | 2021-09-19 18:44 | EDS_ITS ---
HPI HPI - Fall History of Present Illness Chief Complaint: Fall Narrative Narrative: 56-year-old male presenting for evaluation after a fall. Patient states he was on an 8 foot ladder changing a light in his house and his foot slipped because he was wearing socks and the ladder tipped backwards and swung him back and he landed on the floor on his left side. He did hit his head. He denies LOC but admits to seeing stars. He has pain in the left shoulder and left trapezius area. He is unable to move his left arm secondary to pain. He complains of pain in the left wrist and elbow as well. Patient also has injury to the right tibia which was stuck in the latter when he was swung to the ground. He has a superficial laceration and swelling over the tibia. He states that he was able to bear weight after the incident. He denies numbness and tingling below that area. Patient previously on Eliquis for PEs which he is no longer on since August. Patient is denying dizziness, lightheadedness. He denies nausea or vomiting. He denies abdominal pain. He does admit to some left-sided rib pain but is not having trouble breathing. [facility] Medical History Asthma Essential (primary) hypertension GERD (gastroesophageal reflux disease) Hypothyroidism Left ventricular systolic dysfunction Traumatic injury of right lower extremity (07/2017) Umbilical hernia Home Medications amlodipine 10 mg PO DAILY 08/05/17 [History Last Taken Unknown] carvedilol 25 mg PO BID 08/05/17 [History Last Taken Unknown] losartan 100 mg PO DAILY 08/05/17 [History Last Taken Unknown] montelukast 10 mg PO DAILY 08/05/17 [History Last Taken Unknown] albuterol sulfate 2 puff INHALATION Q4H PRN PRN 05/30/19 [History Last Taken Unknown] hydrochlorothiazide 25 mg tablet 25 mg PO DAILY #90 tab 07/20/19 [Rx Last Taken Unknown] Trelegy Ellipta 1 inh INHALATION DAILY 04/17/21 [History Last Taken Unknown] ipratropium-albuterol 3 ml INHALATION Q4H PRN 04/17/21 [History Last Taken Unknown] amoxicillin-pot clavulanate [Augmentin] 1 tab PO Q12H #10 tab 04/19/21 [Rx Last Taken Unknown] apixaban [Eliquis] 10 mg PO BID #60 tab 04/19/21 [Rx Last Taken Unknown] dexamethasone [Decadron] 6 mg PO DAILY #8 tab 04/19/21 [Rx Last Taken Unknown] Allergy/AdvReac Type Severity Reaction Status Date / Time No Known Allergies Allergy Verified 09/19/21 18:22 Family History Mother Heart disease CAD (coronary artery disease) Lung cancer Grandmother Heart disease Sister Thyroid cancer Father Stomach cancer Other Cancer Surgical History H/O left inguinal hernia repair H/O vasectomy History of elbow surgery History of tonsillectomy Social History household members: spouse Smoking Status: Never smoker second hand exposure: No alcohol intake: current alcohol intake frequency: 3 or more drinks per day Alcohol type: beer details: beer substance use type: does not use meliza/adventism: None seatbelt use: always do you feel safe at home: Yes ROS ROS ED Constitutional Constitutional ED: Denies chills, fever(s) or sweats Eyes Eyes: Denies blurry vision or diplopia ENT ENT ED: Denies rhinorrhea or sore throat Cardiovascular Cardiovascular: Reports chest pain Respiratory/Chest Respiratory/Chest: Denies cough or dyspnea Gastrointestinal Gastrointestinal: Denies abdominal pain, nausea or vomiting Genitourinary Genitourinary ED: Denies dysuria or hematuria Musculoskeletal Musculoskeletal: Reports neck pain and other Details: Left shoulder, elbow, wrist pain Integumentary Reports other Details: Superficial abrasion of the proximal tibia anteriorly and slight hematoma. Neurologic Neurologic: Reports headache(s) and paresthesias LUE Psychiatric Psychiatric: Denies anxiety or depression EXAM Physical Exam Const Vital Signs: 09/19/21 18:20 09/19/21 18:41 09/19/21 20:49 Temperature 97.2 F L Temperature Source Temporal Pulse Rate 80 84 Respiratory Rate 18 18 Respiratory Effort Normal Non-Labored Respiratory Depth Normal Respiratory Pattern Normal Blood Pressure 133/83 H Blood Pressure Mean 99 Pulse Ox 95 Oxygen Delivery Method Room Air Room Air 09/19/21 21:16 Temperature Temperature Source Pulse Rate 84 Respiratory Rate Respiratory Effort Respiratory Depth Respiratory Pattern Blood Pressure Blood Pressure Mean Pulse Ox Oxygen Delivery Method Positive obese General Appearance ED: NAD Nutritional Appearance: obese HEENT Reports normocephalic and TM's normal bilaterally atraumatic Eyes PERRL and EOMs intact bilaterally General Eye ED: Negative for pale conjunctiva or scleral icterus Neck Neck Narrative: Left cervical paraspinal muscular tenderness. General: tenderness Chest Wall Chest Narrative: Left upper chest wall tenderness. Equal symmetric breath sounds and chest wall rise. Resp normal respiratory effort and clear to auscultation bilaterally Cardio regular rate and regular rhythm GI non-tender and non-distended Palpation: soft Extremity Extremity Narrative: Superficial abrasion and hematoma over the right proximal tibia anteriorly. Patient able to plantarflex and dorsiflex his ankle. No foot pain. Right foot neurovascular intact with brisk cap refill to all 5 toes. Patient able to flex his hip and flex extend his knee without difficulty. Patient able to push against me with resistance with the right lower extremity. Neuro oriented x3 and CN's II-XII intact bilaterally Sensorium / Orientation: alert Psych mental status grossly normal and thought process normal Skin Skin Narrative: As documented above MDM MDM MDM Narrative Medical decision making narrative: Patient had significant fall in which he hit his head and now has left-sided trapezius pain, shoulder pain, diffuse arm pain but specifically states the wrist and shoulder are the worst. He is not having tenderness on his hand. Patient did hit his head and has a mild headache. He did not lose conscious. He is not currently on any blood thinners. Given this very is followed to do a trauma work-up. Patient CBC is unremarkable. BMP shows normal renal function. Sodium is 132 potassium 3.4. EtOH did return at 206. Patient does admit to drinking alcohol. I did sexual assault counselor him that climbing ladders and her socks over 8 feet while drinking is unwise. He stated that he could has been intoxicated because he was able to get up the ladder. Patient had a CT brain and cervical spine which were negative as interpreted by the radiologist. CT of the chest abdomen pelvis also obtained and negative for acute intrathoracic findings or intra-abdominal findings. There is nonspecific calcified nodules in the thyroid. The radiologist does not comment on a clinical age-indeterminate coracoid fracture. X-rays of the left elbow left elbow, left wrist on my interpretation showed no acute fractures or subluxation. X-ray of the left shoulder does show a small avulsion fracture/chip fracture of the coracoid x-ray of the left tib-fib also does not show any fracture but does show soft tissue swelling on my interpretation. The radiologist agree. Patient's wound was cleaned and dressed on his tibia. He is placed in a sling for comfort left shoulder does show a small chip fracture of the left coracoid on mitral rotation. Radiologist agree. Given patient's ultimate Manjit negative work-up I feel he safe to be discharged home. Patient given return precautions. Impression: 1. Fall 2. Closed head injury 3. Cervical strain 4. Left shoulder chip fracture 5. Left wrist contusion 6. Left elbow contusion 7. Right tibial contusion 8. Left tibial abrasion 9. EtOH intoxication Lab Data Labs: Laboratory Results - last 24 hr 09/19/21 09/19/21 09/19/21 18:45 18:45 18:45 WBC 7.7 RBC 4.84 Hgb 13.4 Hct 41.6 MCV 86.0 MCH 27.7 MCHC 32.2 RDW Std Deviation 44.5 H RDW Coeff of Colin 14.2 Plt Count 259 MPV 9.0 Immature Gran % (Auto) 0.600 Neut % (Auto) 61.1 Lymph % (Auto) 19.6 Stonewall % (Auto) 14.1 H Eos % (Auto) 4.0 Baso % (Auto) 0.6 Absolute Neuts (auto) 4.7 Absolute Lymphs (auto) 1.51 Nucleated RBC % 0 PT 12.5 INR 1.0 Sodium 132 L Potassium 3.4 L Chloride 98 Carbon Dioxide 26.0 Anion Gap 8 BUN 12 Creatinine 0.81 Estim Creat Clear Calc 107.17 Est GFR (MDRD) Af Amer 126 Est GFR (MDRD) Non-Af 104 BUN/Creatinine Ratio 14.7 Glucose 94 Calcium 8.8 Ethyl Alcohol 09/19/21 18:45 WBC RBC Hgb Hct MCV MCH MCHC RDW Std Deviation RDW Coeff of Colin Plt Count MPV Immature Gran % (Auto) Neut % (Auto) Lymph % (Auto) Stonewall % (Auto) Eos % (Auto) Baso % (Auto) Absolute Neuts (auto) Absolute Lymphs (auto) Nucleated RBC % PT INR Sodium Potassium Chloride Carbon Dioxide Anion Gap BUN Creatinine Estim Creat Clear Calc Est GFR (MDRD) Af Amer Est GFR (MDRD) Non-Af BUN/Creatinine Ratio Glucose Calcium Ethyl Alcohol 206.0 Radiography Diagnostic Testing: Clinical Impression(s) from Imaging Studies Brain CT 09/19/21 18:32 IMPRESSION: No evidence of acute intracranial abnormality. Individualized dose optimization techniques were used for this CT. at 1957 Reported and signed by: Baudilio Spann MD Electronically Signed: Baudilio Spann MD at 19:55 EST , Cervical Spine CT 09/19/21 18:33 IMPRESSION: No evidence of acute cervical spinal injury. Small calcified thyroid nodules. Follow-up as clinically warranted. Individualized dose optimization techniques were used for this CT. at 1959 Reported and signed by: Baudilio Spann MD Electronically Signed: Baudilio Spann MD at 19:58 EST , Chest/Abdomen/Pelvis CT 09/19/21 19:15 IMPRESSION: 1. No intrathoracic or intra-abdominal injury. 2. Equivocal age indeterminate avulsion fragment abutting left scapular coracoid process versus chronic ligamentous ossification. 3. Distended urinary bladder. 4. Colonic diverticulosis and other nonurgent findings within body of report. Individualized dose optimization techniques were used for this CT. at 2017 Reported and signed by: Baudilio Spann MD Electronically Signed: Baudilio Spann MD at 20:16 EST , Elbow X-Ray 09/19/21 19:24 IMPRESSION: Normal x-ray examination of the elbow. Electronically Signed: Marques Swan MD (Brooks) at 19:54 EST , Shoulder X-Ray 09/19/21 19:24 IMPRESSION: Possible small chip fracture from the coracoid process, new since 04/17/2021. Electronically Signed: Marques Swan MD (Brooks) at 19:52 EST , Tibia/Fibula X-Ray 09/19/21 19:24 IMPRESSION: Normal x-ray examination of the tibia and fibula. Electronically Signed: Marques Swan MD (Brooks) at 19:53 EST , Wrist X-Ray 09/19/21 19:24 IMPRESSION: Normal x-ray examination of the wrist. Electronically Signed: Marques Swan MD (Brooks) at 19:54 EST , Discharge Plan Triage Chief Complaint: Fall ED Provider: Bill Díaz Dx/Rx/DC Orders Instructions: ED Abrasion, ED Contusion, Lower Extremity, ED Alcohol Intoxication, ED Head Injury (Adult), ED Fracture, Shoulder, ED Fall Prevention Prescriptions: No Action carvedilol 25 MG tablet 25 mg PO BID RF: 0 amlodipine 10 MG tablet 10 mg PO DAILY RF: 0 montelukast 10 MG tablet 10 mg PO DAILY RF: 0 losartan 100 MG tablet 100 mg PO DAILY RF: 0 albuterol sulfate 1 INHALER inhaler 2 puff inhalation Q4H PRN PRN (Reason: Sob &/Or Wheezing) RF: 0 ipratropium-albuterol 0.5 mg-3 mg(2.5 mg base)/3 mL Solution For Nebulization 3 ml INHALATION Q4H PRN (Reason: sob) RF: 0 Trelegy Ellipta 200-62.5-25 mcg Blister With Device 1 inh INHALATION DAILY RF: 0 amoxicillin-pot clavulanate [Augmentin] 875-125 mg tablet 1 tab PO Q12H Qty: 10 RF: 0 Eliquis 5 mg tablet 10 mg PO BID Qty: 60 RF: 2 dexamethasone [Decadron] 6 mg tablet 6 mg PO DAILY Qty: 8 RF: 0 hydrochlorothiazide 25 mg tablet 25 mg PO DAILY Qty: 90 RF: 3 Primary Care Provider: Baudilio Ku Referrals: Baudilio Ku DO [Primary Care Provider] - Disposition Disposition: Home, Self Care Discharge Date/Time: 09/19/21 21:17
[2021-09-19 18:54] LABS: Absolute Lymphocyte Count 1.51 X10^3/uL (0.83-4.51); Absolute Neutrophil Count 4.7 X10^3/uL (2.0-7.7); Basophil# 0.05 X10^3/uL; Basophil% 0.6 % (0-1); Eosinophil# 0.31 X10^3/uL; Hematocrit 41.6 % (40-54); Hemoglobin 13.4 g/dL (13.0-16.5); Lymphocyte # 1.51 X10^3/ul (0.83-4.51); Lymphocyte % 19.6 % (19-41); Mean Corp Hgb Conc 32.2 g/dL (32-36); Mean Corpuscular Hgb 27.7 pg (27.0-32.0); Monocyte# 1.09 X10^3/uL; Monocyte% 14.1 % (0-10); NRBC Flagged by Analyzer 0 % (0-5); Neutrophil # 4.71 X10^3/uL (2.7-7.7); Neutrophil % 61.1 % (47-70); Platelet Count 259 K/mm3 (150-450); RBC Distribution Width CV 14.2 % (11.6-14.6); RBC Distribution Width SD 44.5 fl (35.1-43.9); Red Blood Count 4.84 M/mm3 (4.6-6.2); White Blood Count 7.7 K/mm3 (4.4-11.0)
[2021-09-19] MEDS: fentaNYL 100 MCG/2 ML Ampul 25 MCG IV (18:55)
[2021-09-19] MEDS: Ondansetron 4 MG/2 ML Vial IV (18:55)
[2021-09-19] MEDS: 0.9% Normal Saline 1,000 ML 999 ML IV (18:56)
[2021-09-19 19:03] LABS: Prothrombin Time (Protime)PT. 12.5 SECONDS (11.7-14.9)
[2021-09-19 19:09] LABS: Anion Gap 8 (5-15); BUN 12 mg/dL (7-18); BUN/Creat Ratio 14.7 RATIO (10-20); Calcium,Total 8.8 mg/dL (8.5-10.1); Chloride 98 mmol/L (98-107); Creatinine, Serum 0.81 mg/dL (0.70-1.30); EST Glomerular Filtration Rate 104 mL/min (>60); Est Glom Filt Rate - Afr Amer 126 mL/min (>60); Estimated Creatinine Clearance 107.17 ml/min; Glucose 94 mg/dL (74-106); Potassium 3.4 mmol/L (3.5-5.1); Sodium Level 132 mmol/L (136-145)
--- NOTE | 2021-09-19 19:15 | CT_ITS ---
HISTORY: Trauma, status post fall from ladder TECHNIQUE: Helically acquired images were obtained of the chest, abdomen, and pelvis following IV contrast. Sagittal and coronal reformats reviewed. A radiation dose optimization technique was used for this scan. IV Contrast dosage and agent: 100 mL Isovue-370 Oral contrast: None. COMPARISON: None FINDINGS: ----Chest: HEART AND PERICARDIUM: Heart size upper limits normal. No significant pericardial effusion. VESSELS: No thoracic aortic aneurysm or dissection. Great vessels are patent. There is no central pulmonary embolism although this study was not performed with the pulmonary embolism protocol. MEDIASTINUM AND ANTOINETTE: No pathologically enlarged mediastinal or hilar lymph nodes. Esophagus is unremarkable. OTHER SOFT TISSUES: Couple small calcified nodules within left lobe of thyroid gland, follow-up as clinically warranted. No chest wall mass or significant soft tissue swelling. LUNGS AND LARGE AIRWAYS: No pulmonary contusion, consolidation, mass or edema. No pneumothorax. PLEURA: No pleural effusion or pleural thickening. BONES: Small subcentimeter osseous fragment abutting left scapular coracoid process. Remaining osseous structures appear intact. ----Abdomen/Pelvis: LIVER: Homogeneous. No concerning lesion. GALLBLADDER AND BILIARY TREE: No calcified gallstones. There is no gallbladder distension or wall edema. No intra- or extrahepatic biliary ductal dilation. KIDNEYS AND URETERS: Normal renal size and position. There are a few bilateral subcentimeter, low-attenuation renal cysts requiring no additional follow-up. No renal laceration, hematoma or concerning lesion. No perinephric inflammation or hydronephrosis. ADRENAL GLANDS: Non-enlarged. SPLEEN: Normal size without discrete lesion. PANCREAS: No discrete lesion or peripancreatic inflammation. BOWEL: No evidence of acute appendicitis. No abnormal stomach or bowel distension. Scattered colonic diverticula. No focal inflammatory change observed. LYMPH NODES: No enlarged mesenteric or retroperitoneal lymph nodes. PERITONEUM: No ascites or free air. No other fluid collection. VESSELS: Mild atherosclerosis. URINARY BLADDER: Distended and intact urinary bladder with no significant wall thickening. REPRODUCTIVE ORGANS: Dystrophic calcifications within prostate gland. Prostate gland is not significantly enlarged. ABDOMINAL WALL: Moderate size right inguinal fat hernia and small left inguinal fat hernia. BONES: Intact with no suspicious osseous lesion. CT/CT Chest, Abd, Pel w/Contrast IMPRESSION: 1. No intrathoracic or intra-abdominal injury. 2. Equivocal age indeterminate avulsion fragment abutting left scapular coracoid process versus chronic ligamentous ossification. 3. Distended urinary bladder. 4. Colonic diverticulosis and other nonurgent findings within body of report. Individualized dose optimization techniques were used for this CT. at 2017 Reported and signed by: Baudilio Spann MD Electronically Signed: Baudilio Spann MD at 20:16 EST ,
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
--- NOTE | 2021-09-19 19:24 | RAD_ITS ---
STUDY: X-RAY - LEFT SHOULDER REASON FOR EXAM: Male, 56 years old. PAIN S/P FALL OFF OF 8 FOOT LADDER ONTO LEFT SIDE, RIGHT LEG STUCK IN LADDER TECHNIQUE: 2 view(s) of the shoulder. COMPARISON: None. FINDINGS: Normal glenohumeral articulation. There is hypertrophic osteoarthrosis of the acromioclavicular joint with inferior osseous spur formation. Normal acromion. Normal humeral head and visualized proximal humerus. Small osseous density lateral to the coracoid process. The soft tissue structures are unremarkable. Normal visualized pulmonary apex. RAD/Shoulder min 2 Views IMPRESSION: Possible small chip fracture from the coracoid process, new since 04/17/2021. Electronically Signed: Marques Swan MD ([place]) at 19:52 EST ,
--- NOTE | 2021-09-19 19:24 | RAD_ITS ---
STUDY: X-RAY - LEFT WRIST REASON FOR EXAM: Male, 56 years old. PAIN S/P FALL OFF OF 8 FOOT LADDER ONTO LEFT SIDE, RIGHT LEG STUCK IN LADDER TECHNIQUE: 3 view(s) of the wrist were obtained. COMPARISON: None. FINDINGS: Normal visualized distal radius and ulna. Normal radiocarpal articulation. Normal distal radioulnar articulation. Normal carpal bones. Normal carpal articulations. Normal carpometacarpal articulation of the thumb. Normal second through fifth carpometacarpal articulations. Normal visualized metacarpal bones. The soft tissue structures are unremarkable. RAD/Wrist min 3 Views IMPRESSION: Normal x-ray examination of the wrist. Electronically Signed: Marques Swan MD ([place]) at 19:54 EST ,
--- NOTE | 2021-09-19 19:24 | RAD_ITS ---
STUDY: X-RAY - LEFT ELBOW REASON FOR EXAM: Male, 56 years old. PAIN S/P FALL OFF OF 8 FOOT LADDER ONTO LEFT SIDE, RIGHT LEG STUCK IN LADDER TECHNIQUE: 3 view(s) of the elbow. COMPARISON: None. FINDINGS: Normal visualized humerus, radius and ulna. Normal radiocapitellar and ulnotrochlear articulations. The soft tissue structures are unremarkable. RAD/Elbow min 3 Views IMPRESSION: Normal x-ray examination of the elbow. Electronically Signed: Marques Swan MD ([place]) at 19:54 EST ,
[2021-09-19 20:49] VITALS: PULSE 84; RESP 18
[2021-09-19 21:16] VITALS: PULSE 84
== END 2021-09-19 21:17 | disposition home or self-care (01) ==
PROVIDERS: Emergency Provider Student in an Organized Health Care Education/Training Program; PCP Family Medicine; Visit Provider Student in an Organized Health Care Education/Training Program
DX: S09.90XA Unspecified injury of head, initial encounter (principal); F10.129 Alcohol abuse with intoxication, unspecified; S16.1XXA Strain of muscle, fascia and tendon at neck level, initial encounter; S42.92XA Fracture of left shoulder girdle, part unspecified, initial encounter for closed fracture; S60.212A Contusion of left wrist, initial encounter; S50.02XA Contusion of left elbow, initial encounter; S80.11XA Contusion of right lower leg, initial encounter; S80.812A Abrasion, left lower leg, initial encounter; E66.9 Obesity, unspecified; W11.XXXA Fall on and from ladder, initial encounter
CPT/HCPCS: 70450; 71260; 72125; 73030; 73080; 73110; 73590; 74177; 80048; 82077; 85025; 85610; 93005; 96374; 96375; 99285; J7030; Q9967; A4216; J2405

== ENCOUNTER 2022-08-03 09:24 | Outpatient (RCR) | payer OTHER, SELFPAY ==
[2022-08-03 10:28] VITALS: BP 163/104; PULSE 76; RESP 18; TEMP 36.3; BMI 34.8
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
== END 2022-08-14 23:59 | disposition home or self-care (01) ==
LOC: WC 09:24
PROVIDERS: PCP Family Medicine; Visit Provider Surgery
DX: I83.212 Varicose veins of right lower extremity with both ulcer of calf and inflammation (principal); L97.212 Non-pressure chronic ulcer of right calf with fat layer exposed; I10 Essential (primary) hypertension; R60.0 Localized edema; Z87.891 Personal history of nicotine dependence; E66.9 Obesity, unspecified; J45.909 Unspecified asthma, uncomplicated; Z79.899 Other long term (current) drug therapy
CPT/HCPCS: 11042; 99213; G0463

== ENCOUNTER 2022-08-17 09:47 | Outpatient (RCR) | payer OTHER, SELFPAY ==
[2022-08-15 00:39] VITALS: BP 163/104; PULSE 76; RESP 18; TEMP 36.3; BMI 34.8
[2022-08-17 10:01] VITALS: BP 148/93; PULSE 88; TEMP 36.2; BMI 34.8
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
== END 2022-08-18 15:52 | disposition home or self-care (01) ==
LOC: WC 09:47
PROVIDERS: PCP Family Medicine; Visit Provider Surgery
DX: I83.212 Varicose veins of right lower extremity with both ulcer of calf and inflammation (principal); L97.219 Non-pressure chronic ulcer of right calf with unspecified severity; R60.0 Localized edema; I10 Essential (primary) hypertension; G89.29 Other chronic pain; E66.9 Obesity, unspecified; J45.909 Unspecified asthma, uncomplicated; Z87.891 Personal history of nicotine dependence; Z98.52 Vasectomy status; I83.11 Varicose veins of right lower extremity with inflammation; M79.89 Other specified soft tissue disorders; Z87.19 Personal history of other diseases of the digestive system
CPT/HCPCS: 99213; G0463

== ENCOUNTER → 2022-11-23 | Outpatient (CLI) | payer OTHER, SELFPAY ==
--- NOTE | 2022-11-23 06:30 | RAD_ITS ---
EXAM: XR CHEST, 2 VIEWS CLINICAL INDICATION: ASTHMA,DYSPNEA TECHNIQUE: Frontal and lateral views of the chest. This report was created using [employer] report generation technology. COMPARISON: Previous chest radiograph of 04/17/2021. CT of 09/19/2021. FINDINGS: LUNGS AND PLEURAL SPACES: Lungs are clear except for minimal discoid atelectasis in the left mid-lower lung laterally. No pulmonary edema. No pneumonia. No peribronchial cuffing. Lungs are not hyperinflated. HEART: Heart size is upper normal with normal pulmonary vasculature. MEDIASTINUM: Thoracic aorta is not elongated. No mediastinal widening. Trachea is midline. BONES/JOINTS: Lower thoracic degenerative spurring. No acute osseous abnormality. SOFT TISSUES: Unremarkable. RAD/Chest PA and Lateral IMPRESSION: No significant interval change or acute abnormality. Electronically Signed: Estiven Mckinney MD at 7:26 EDT ,
[2022-11-23 07:22] LABS: Absolute Lymphocyte Count 1.22 X10^3/uL (0.83-4.51); Absolute Neutrophil Count 4.3 X10^3/uL (2.0-7.7); Basophil# 0.05 X10^3/uL; Basophil% 0.7 % (0-1); Eosinophil# 0.42 X10^3/uL; Eosinophils% 6.2 % (0-5); Hematocrit 47.5 % (40-54); Lymphocyte # 1.22 X10^3/ul (0.83-4.51); Mean Corp Hgb Conc 33.7 g/dL (32-36); Mean Corpuscular Hgb 33.3 pg (27.0-32.0); Mean Platelet Vol. 9.8 fl (6.2-12.0); Monocyte# 0.72 X10^3/uL; Monocyte% 10.6 % (0-10); NRBC Flagged by Analyzer 0 % (0-5); Neutrophil # 4.32 X10^3/uL (2.7-7.7); Neutrophil % 63.6 % (47-70); Platelet Count 224 K/mm3 (150-450); RBC Distribution Width CV 11.9 % (11.6-14.6); RBC Distribution Width SD 43.7 fl (35.1-43.9); White Blood Count 6.8 K/mm3 (4.4-11.0)
[2022-11-23 08:00] LABS: ALB/GLOB Ratio 0.9 RATIO (0.9-2.4); AST(SGOT) 64 U/L (15-37); Alanine Aminotransfer ALT/SGPT 97 U/L (16-61); Albumin, Serum 3.8 g/dL (3.2-5.0); Alkaline Phosphatase 96 U/L (45-117); Anion Gap 7 (5-15); BUN 10 mg/dL (7-18); BUN/Creat Ratio 12.8 RATIO (10-20); Calcium,Total 9.2 mg/dL (8.5-10.1); Chloride 102 mmol/L (98-107); Creatinine, Serum 0.78 mg/dL (0.70-1.30); EST Glomerular Filtration Rate 108 mL/min (>60); Est Glom Filt Rate - Afr Amer 131 mL/min (>60); Globulin 4.2 g/dL (2.2-4.2); Glucose 106 mg/dL (74-106); Potassium 3.6 mmol/L (3.5-5.1); Sodium Level 136 mmol/L (136-145)
[2022-11-24 11:16] LABS: Alpha Antitrypsin Serum 146 mg/dL (101-187)
[2022-11-25 22:21] LABS: Immunoglobulin E 312 IU/mL (6-495)
== END | disposition home or self-care (01) ==
PROVIDERS: PCP Family Medicine; Referring Provider Nurse Practitioner; Visit Provider Nurse Practitioner
DX: E55.9 Vitamin D deficiency, unspecified (principal); D84.9 Immunodeficiency, unspecified; E07.9 Disorder of thyroid, unspecified; L50.1 Idiopathic urticaria; J32.9 Chronic sinusitis, unspecified; R06.00 Dyspnea, unspecified; J45.50 Severe persistent asthma, uncomplicated; J30.9 Allergic rhinitis, unspecified; T78.3XXD Angioneurotic edema, subsequent encounter; T78.09XD Anaphylactic reaction due to other food products, subsequent encounter; Z91.038 Other insect allergy status
CPT/HCPCS: 36415; 71046; 80053; 82103; 82785; 85025

== ENCOUNTER 2023-03-18 10:16 | Outpatient (CLI) | payer OTHER, SELFPAY ==
[2023-03-18 10:40] VITALS: BP 147/80; PULSE 88; RESP 16; TEMP 37.1; O2SAT 96; BMI 36.2
[2023-03-18] MEDS: Omalizumab 150 MG/ML Syringe 300 MG SC (10:48)
[2023-03-18 12:53] VITALS: BP 147/81; PULSE 85; RESP 16; TEMP 36.7; O2SAT 93
== END 2023-03-18 10:17 | disposition home or self-care (01) ==
LOC: MEDOUTP 10:16
PROVIDERS: PCP Family Medicine; Referring Provider Nurse Practitioner; Visit Provider Nurse Practitioner
DX: J45.50 Severe persistent asthma, uncomplicated (principal)
CPT/HCPCS: 96372; J2357

== ENCOUNTER 2023-04-01 09:45 | Outpatient (CLI) | payer OTHER, SELFPAY ==
[2023-04-01 09:54] VITALS: BP 148/87; PULSE 94; RESP 16; TEMP 36.6; O2SAT 94; BMI 36.2
[2023-04-01] MEDS: Omalizumab 150 MG/ML Syringe 300 MG SQ (09:57)
== END 2023-04-01 09:46 | disposition home or self-care (01) ==
LOC: MEDOUTP 09:45
PROVIDERS: PCP Family Medicine; Referring Provider Nurse Practitioner; Visit Provider Nurse Practitioner
DX: J45.50 Severe persistent asthma, uncomplicated (principal)
CPT/HCPCS: 96372; J2357

== ENCOUNTER 2023-04-14 10:16 | Outpatient (CLI) | payer OTHER, SELFPAY ==
[2023-04-14 10:21] VITALS: BP 137/88; PULSE 83; RESP 16; TEMP 36.4; O2SAT 94
[2023-04-14] MEDS: Omalizumab 150 MG/ML Syringe 300 MG SQ (10:45)
== END 2023-04-14 10:17 | disposition home or self-care (01) ==
PROVIDERS: PCP Family Medicine; Referring Provider Nurse Practitioner; Visit Provider Nurse Practitioner
DX: J45.50 Severe persistent asthma, uncomplicated (principal)
CPT/HCPCS: 96372; J2357

== ENCOUNTER → 2023-06-10 | Outpatient (CLI) | payer OTHER, SELFPAY | END | disposition home or self-care (01) | LOC: RAD.FUTURE 20:04 | PROVIDERS: PCP Family Medicine; Visit Provider Family Medicine | DX: R05.3 Chronic cough (principal) ==

== ENCOUNTER → 2023-08-23 | Outpatient (CLI) | payer OTHER, SELFPAY ==
--- NOTE | 2023-08-23 10:10 | RAD_ITS ---
STUDY: X-RAY CHEST REASON FOR EXAM: Male, 58 years old. Chronic cough. TECHNIQUE: Frontal and lateral views of the chest on 3 images. COMPARISON: November 23, 2022 FINDINGS: The lungs are clear and expanded. There is no demonstrated pleural abnormality. Normal size heart. Normal mediastinum and tosin. Normal visualized pulmonary arteries. Normal visualized aortic arch and descending thoracic aorta. Stable diffuse thoracic spondylosis with increased kyphosis. Normal visualized ribs, clavicles, and shoulders. No abnormality of the visualized soft tissue structures of the upper abdomen. RAD/Chest PA and Lateral IMPRESSION: Stable chest with no acute or active cardiopulmonary disease. Electronically Signed: Tobin Person MD at 10:32 EST ,
--- OUTSIDE RECORDS SUMMARY | 2023-08-23 11:22 | XMS RPT_ITS | CCD ---
Author Name Unknown Address [address] [place] [address] Organization [facility] Care Team Providers Care Cashier Associate Name Role Phone Abner Blair MD Unavailable Medications Completed/Discontinued Medications Medication Drug Class(es) Dates Sig (Normalized) Sig (Original) 60 actuat albuterol 0.09 mg/actuat metered dose inhaler (1 source) beta2-Adrenergic Agonist Start: 08-03-2019 VENTOLIN HFA 108 (90 Base) MCG/ACT AERS as directed as needed ALBUTEROL SULFATE [id number] Alondra Leal LPN 120 actuat budesonide 0.16 mg/actuat / formoterol fumarate 0.0045 mg/actuat metered dose inhaler (1 source) Corticosteroid, beta2-Adrenergic Agonist Start: 08-03-2019 SYMBICORT 160-4.5 MCG/ACT AERO 2 puffs twice daily BUDESONIDE-FORMOT BUTCH FUMARATE [id number] Alondra Leal LPN carvedilol 25 mg oral tablet (1 source) alpha-Adrenergic Carleen, beta-Adrenergic Carleen Start: 08-03-2019 CARVEDILOL 25 MG TABS 1 tablet twice daily CARVEDILOL [id number] Alondra Leal LPN losartan potassium 100 mg oral tablet (1 source) Angiotensin 2 Receptor Carleen Start: 08-03-2019 LOSARTAN POTASSIUM 100 MG TABS 1 tablet daily LOSARTAN POTASSIUM [id number] Alondra Leal LPN tiotropium 0.018 mg inhalant powder (1 source) Anticholinergic Start: 08-03-2019 SPIRIVA HANDIHALER 18 MCG CAPS 1 puff daily TIOTROPIUM BROMIDE MONOHYDRATE [id number] Alondra Leal LPN Problems Active Problems Problem Classification Problem Date Documented Da te Episodic/Chronic Osteoarthritis (1 source) Unilateral primary osteoarthritis, right knee; Translations: [Unilateral primary osteoarthritis, right knee] Onset: 08-22-2019 08-22-2019 Chronic Past or Other Problems Problem Classification Problem Date Documented Da te Episodic/Chronic Joint disorders and dislocations; trauma-related (1 source) Other tear of medial meniscus, current injury, right knee, initial encounter; Translations: [Other tear of medial meniscus, current injury, right knee, initial encounter] Onset: 08-22-2019 08-22-2019 Episodic Other non-traumatic joint disorders (1 source) Effusion, right knee; Translations: [Effusion, right knee] Onset: 08-22-2019 08-22-2019 Episodic Unclassified (1 source) Problem Results Test Name Value Interpretation Reference Range Facil ity Vital Signs Date Time Vital Sign Value Performing Clinician Facility NEGATED: Highlighted [id number] 14:01-0500 BMI (Body Mass Index) 33.45 kg/m2 Donaldo Godinez [employer] [facility] Work Phone: NEGATED: Highlighted [id number] 14:01-0500 Body weight 108.41 kg Donaldo Godinez [employer] [facility] Work Phone: NEGATED: Highlighted [id number] 14:01-0500 Body weight 109 kg Donaldo Godinez [employer] [facility] Work Phone: NEGATED: Highlighted [id number] 14:01-0500 BP Diastolic 95 mm[Hg] Donaldo Godinez [employer] [facility] Work Phone: NEGATED: Highlighted [id number] 14:01-0500 BP Diastolic 94 mm[Hg] Donaldo Godinez [employer] [facility] Work Phone: NEGATED: Highlighted [id number] 14:01-0500 BP Systolic 156 mm[Hg] Donaldo Godinez [employer] [facility] Work Phone: NEGATED: Highlighted [id number] 14:01-0500 BP Systolic 154 mm[Hg] Donaldo Godinez ALEIDA [facility] Work Phone: NEGATED: Highlighted [id number] 14:01-0500 Heart rate 2+ Donaldo Godinez [employer] [facility] Work Phone: NEGATED: Highlighted [id number] 14:050 Height 180.34 cm Donaldo Godinez [employer] [facility] Work Phone: NEGATED: Highlighted [id number] 14:050 Height 180 cm Donaldo Godinez [employer] [facility] Work Phone: NEGATED: Highlighted [id number] 14:0500 Pulse (Heart Rate) 76 /min Donaldo Godinez [employer] [facility] Work Phone: Encounters Encounter Date Encounter Type Care Provider Facility Start: 08-22-2019 End: 08-22-2019 Patient encounter procedure Abner Blair MD Work Phone: [facility] Work Phone: Procedures Date Procedure Procedure Detail Performing Clinician Start: 08-22-2019 End: 08-22-2019 Arthrocentesis aspir&/inj major jt/bursa w/o us Abner Blair MD Work Phone: Start: 08-22-2019 End: 08-22-2019 Blood pressure outside of normal parameters - follow-up documented Abner Blair MD Work Phone: Start: 08-22-2019 End: 08-22-2019 BMI documented as above normal parameters - follow-up documented Abner Blair MD Work Phone: Start: 08-22-2019 End: 08-22-2019 Documentation of current medications Abner Blair MD Work Phone: Start: 08-22-2019 End: 08-22-2019 Injection - triamcinolone acetonide 10 mg Abner Blair MD Work Phone: Start: 08-22-2019 End: 08-22-2019 Osteoarthritis assess Abner martinez MD Work Phone: Start: 08-22-2019 End: 08-22-2019 Pain assessment documented as positive - follow-up documented Abner Blair MD Work Phone: Start: 08-22-2019 End: 08-22-2019 Tobacco non-user Abner Thomas i, MD Work Phone: NEGATED: Highlighted rowStart: 08-22-2019 End: 08-22-2019 Documentation of current medications Donaldo Godinez LPN Plan of Treatment Date Care Activity Detail Author Start: 08-22-2019 End: 08-22-2019 Appointment Appointment [facility] Work Phone: Start: 08-22-2019 End: 08-22-2019 Radiologic examination knee 3 views XR [id number] [facility] Work Phone: Patient Education \cps-sql1\CPS_ PtEducati on\htn.pdf [facility] Work Phone: Social History Date Type Detail Facility NEGATED: Highlighted rowStart: 08-22-2019 End: 08-22-2019 Alcohol use Alcohol use [facility] Work Phone: NEGATED: Highlighted rowStart: 08-22-2019 End: 08-22-2019 Details of drug misuse behavior Details of drug misuse behavior [facility] Work Phone: NEGATED: Highlighted rowStart: 08-22-2019 End: 08-22-2019 Assertion Never smoker [facility] Work Phone: Chief Complaint Chief Complaint Description Start Date right knee pain Preliminary chief co mplaint data, not yet signed by the author as of Instructions Instruction Description Start Date CompletedPlease follow-up wi th Primary Care Physician or Nursing Program Manager for treatment or adjustment of medication regarding elevated blood pressure.Patient advised to follow-up with Primary Care Physician for BMI management. Advance Directives There may be information available, but it has not been provided by the sender. Assessments There may be information available, but it has not been provided by the sender. Review of System There may be information available, but it has not been provided by the sender. Family History There may be information available, but it has not been provided by the sender. History of Present Illness There may be information available, but it has not been provided by the sender. Additional Source Comments Reason for Visit (unrecogniz ed section and content) FOR RECORDS PERTAINING TO PATIENTS WHO ARE OR HAVE BEEN ENROLLED IN A CHEMICAL DEPENDENCY/SUBSTANCEABUSE PROGRAM, SOME INFORMATION MAY BE OMITTED. This clinical summary was aggregated from multiple sources. Caution should be exercised in using it in the provision of clinical care. This summary normalizes information from multiple sources, and as a consequence, information in this document may materially change the coding, format and clinical context of patient data. In addition, data may be omitted in some cases. CLINICAL DECISIONS SHOULD BE BASED ON THE PRIMARY CLINICAL RECORDS. [employer] provides no warranty or guarantee of the accuracy or completeness of information in this document.
== END | disposition home or self-care (01) ==
LOC: RAD 10:09
PROVIDERS: PCP Family Medicine; Referring Provider Family Medicine; Visit Provider Family Medicine
DX: R05.3 Chronic cough (principal)
CPT/HCPCS: 71046

== ENCOUNTER → 2024-05-29 | Outpatient (CLI) | payer OTHER, SELFPAY ==
[2024-05-29 18:13] LABS: T4 Free Direct 0.82 ng/dL (0.76-1.46)
== END | disposition home or self-care (01) ==
LOC: BFHLAB 13:17
PROVIDERS: PCP Family Medicine; Referring Provider Family Medicine; Visit Provider Family Medicine
DX: E04.1 Nontoxic single thyroid nodule (principal)
CPT/HCPCS: 36415; 84439; 84443

== ENCOUNTER 2025-05-03 08:00 | Outpatient (RCR) | payer OTHER, SELFPAY ==
[2025-04-16 08:22] VITALS: BP 109/72; PULSE 100; RESP 16; TEMP 36.4; BMI 37.0
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
--- NOTE | 2025-04-17 15:35 | PCM.WC.HP ---
History of Present Illness Date of Service: 04/16/25 Chief Complaint: Venous stasis ulcerations of the right and left calves History of Wound: This is a 59-year-old male with a history of chronic venous insufficiency, venous hypertension with inflammation, and venous stasis ulcerations in his lower extremities. He presented with an ulceration on the lateral aspect of both the right and left calves. The ulceration on the right calf had been present for approximately 3 weeks. The ulceration on the left calf has been present for approximately 1 week. The patient has been treated at the [facility] in the past for lower extremity venous stasis ulcerations. He has also undergone a right lower extremity endovenous laser ablation procedure several years ago. The patient suffers from chronic swelling and edema in his lower extremities bilaterally. Graduated compression stockings have been previously prescribed, but the patient is unable to don the stockings due to his inability to bend over. The patient is also noted to have a history of pulmonary embolism. He sleeps on a flat mattress at night. The patient has been referred by his primary care physician, Dr. Ku, who has recently treated the patient for bilateral lower extremity cellulitis. He had been using antibiotic ointment topically to the ulcerations in his lower extremities. The patient has completed a 7-day course of cephalexin 500 mg p.o. every 6 hours for a total of 7 days. The patient is mildly obese. He is not diabetic. [facility] Medical History Venous stasis ulcer Lipodermatosclerosis of both lower extremities History of pulmonary embolism Hyperpigmentation Obesity (BMI 30-39.9) Obesity (BMI 30.0-34.9) Venous stasis ulcer Venous stasis dermatitis of right lower extremity Hypertension Lipodermatosclerosis of right lower extremity Chronic venous insufficiency Edema of left lower leg Edema of right lower leg Swelling of left lower extremity Swelling of right lower extremity Traumatic injury of right lower extremity (07/2017) Umbilical hernia GERD (gastroesophageal reflux disease) Asthma Hypothyroidism Essential (primary) hypertension Left ventricular systolic dysfunction Home Medications ?Medication ?Instructions ?Recorded ?Last Taken ?Type amlodipine 10 mg tablet 10 mg PO DAILY 08/05/17 Unknown History carvedilol 25 mg tablet 25 mg PO BID 08/05/17 Unknown History losartan 100 mg tablet 100 mg PO DAILY 08/05/17 Unknown History montelukast 10 mg tablet 10 mg PO DAILY 08/05/17 Unknown History albuterol sulfate 90 mcg/actuation 2 puff inhalation Q4H PRN PRN Sob 05/30/19 Unknown History aerosol inhaler &/Or Wheezing hydrochlorothiazide 25 mg tablet 25 mg PO DAILY #90 tabs 07/20/19 Unknown Rx fluticasone fur. 200 mcg-umeclid 1 inh inhalation DAILY 04/17/21 Unknown History 62.5 mcg-vilant 25 mcg inhalat.powder (Trelegy Ellipta) furosemide 20 mg tablet 40 mg PO DAILY 08/03/22 Unknown History potassium chloride 20 mEq 20 meq PO DAILY 08/03/22 Unknown History tablet,extended release Allergy/AdvReac Type Severity Reaction Status Date / Time No Known Allergies Allergy Verified 04/14/23 10:25 Family History Mother Heart disease CAD (coronary artery disease) Lung cancer Grandmother Heart disease Sister Thyroid cancer Father Stomach cancer Other Cancer Surgical History History of tonsillectomy History of elbow surgery History of vasectomy History of left inguinal hernia repair History of elbow surgery H/O vasectomy History of tonsillectomy H/O left inguinal hernia repair Social History household members: spouse Smoking Status: Never smoker second hand exposure: No alcohol intake: current alcohol intake frequency: 3 or more drinks per day Alcohol type: beer details: beer substance use type: does not use meliza/yazdanism: None seatbelt use: always do you feel safe at home: Yes Vital Signs Vital Signs Vital Signs: Weight Weight: 266 lb Body Mass Index (BMI) 37.0 Physical Exam Const alert, oriented x3, no apparent distress, no limitations, healthy appearing and well nourished Constitutional Narrative: The patient is mildly obese, with a BMI of 37.1. General Appearance: cooperative, comfortable, well kempt and well developed Orientation / Consciousness: awake, oriented to person, oriented to place and oriented to time Exam Limitations: no limitations HEENT normocephalic and head/scalp atraumatic Head and Scalp: normal to inspection, normocephalic and atraumatic Face and Sinus: normal facial exam Nose: external nose normal External Ear: external ears normal Eyes EOMs intact bilaterally General Eye: normal appearance of both eyes Neck full ROM Resp normal respiratory effort, normal air movement, no retractions and no use of accessory muscles Effort and Inspection: able to speak in complete sentences Extremity no calf tenderness General Extremity: Negative for clubbing or cyanosis Skin Wound Narrative: Moderate swelling and edema are noted in the patient's lower extremities bilaterally. Hemosiderin staining and hyperpigmentation are noted in the gaiter areas bilaterally. No ulceration is noted on the distal right lateral calf. There is a dry eschar. Dimensions are documented elsewhere. The ulceration is full-thickness, extending through all layers of the dermis and into the subcutaneous tissues. Ulcer margins are well beveled. There is an ulceration on the left mid lateral calf. This is noted to be a dry eschar. Dimensions are documented elsewhere. The ulceration is full-thickness, extending through all layers of the dermis and into the subcutaneous tissues. Ulcer margins are well beveled. There is no sign of infection or cellulitis at either ulceration site. Neuro oriented x3, CN's II-XII intact bilaterally, moves all extremities, no focal motor deficits and no sensory deficits noted Sensorium / Orientation: awake, alert, oriented to person, oriented to place and oriented to time Speech: speech normal Psych Appearance: grossly normal and appropriate Attitude: calm Activity / Motor Behavior: appropriate eye contact Speech: normal speech Mood & Affect: euthymic mood Thought Process: normal thought process Thought Content: normal thought content Attention / Concentration: attention grossly intact Debridement Note Debridement Note Wound debrided: Right calf venous stasis ulceration Laterality: Right Type of Debridement: Excisional debridement Anesthesia Used: 5% Lidocaine Gel Depth: Down to and including healthy tissue and in the subcutaneous layer Percentage of wound debrided: 100 Instrument Used: 5mm curette Tissue Removed: Eschar and bioburden Severity: Fat Layer Exposed Amount of bleeding with debridement: Mild Bleeding Controlled with: Compression and gauze Patient tolerated procedure: Patient tolerated procedure well Post-Debridement Measurements and Additional Note: Post-Debridement Measurements/Treatment PAULA - Nurse 1 - General Ulcer Assessment Start: 04/16/25 08:22 Freq: Status: Active Protocol: AMANDA Activity Type Activity Date Activity User E-sign Co-sign Detail Recorded Client Recorded Date Recorded By Document 04/16/25 08:22 SHANNA [id number] 04/16/25 08:27 SHANNA 04/16/25 08:22 WC - Today's Visit Information Type of service Follow-up Visit (Physician/[employer]SE[employer] ) Arrival Mode Ambulatory Patient Identification Verified (Name & Yes ) Patient Requires Transmission-Based No Precautions Height and Weight Height 5 ft 11 in Weight 266 lb Weight in Pounds 266.0 lbs Body Mass Index (BMI) 37.0 BMI Classification Obese Vital Signs Temperature (97.8 F-99.1 F) 97.5 F L Temperature Source Temporal Pulse Rate (60-100) 100 Pulse Location Monitor Respiratory Rate (12-18) 16 Respiratory rate source Observation Blood Pressure (90/60-120/80) 109/72 Blood Pressure Mean 84 Source Monitor Position Sitting Blood Pressure Location Left Arm History Since Last Visit- (Skip if this is Patient's initial visit) Left Footwear Regular Shoe Right Footwear Regular Shoe Pain Scale: 0-10 Numeric Is Patient Pain Free? Yes Communication Assessment Preferred language [place] Able to Read Yes Able to Write Yes Communication Tools None Caregiver Communication Skills No Impairment Impairment Right Hearing Abillity Normal Left Hearing Abillity Normal Visual Assistive Devices Glasses Teaching Assessment Preferences Verbal Barriers to Learning None Readiness To Learn Good Willingness to Engage in Self Management Med Activies Readiness to Engage in Self Management Med Activities Anxiety Level Calm Cooperation Cooperative Perception Coherent Interest in Health Problem Asks Questions Education Importance Acknowledges Need Does Patient Smoke tobacco or other No substances Smoking Status Never smoker Is Patient Diabetic No Functional Assessment Recent Decline in Ability to Perform Denies Any Declines Culture/Yarsanism/[place] Pumper Cultural/Yarsanism Needs that may affect No Treatment Plan Would you allow our hospital business banking representative to No meet you for the purpose of spiritual/ emotional support? Wellhead Pumper to contact place of [facility] No Teaching: Wound Center Compression Wraps & Stockings -Person Taught Patient -Teaching Method Discussion, Demonstration -Response to teaching Reinforcement Needed - Nurse 1 - General Ulcer Measurement Start: 04/16/25 08:22 Freq: Status: Active Protocol: Activity Type Activity Date Activity User E-sign Co-sign Detail Recorded Client Recorded Date Recorded By Document 04/16/25 08:22 SHANNA [id number] 04/16/25 08:27 JF Edit Result 04/16/25 08:22 SHANNA (1) [id number] 04/16/25 08:29 JF (1) 3-L LATERAL LEG\ - Combined with other wound => No - Current Size (cm) - Length => 1.0 - Current Size (cm) - Width => 0.7 - Current Size (cm) - Depth => 0.1 - Total Square Cm => 0.70 - Photo Taken => Yes - Epithelialization => Medium 34-66% - Tunneling => No - Undermining/Tunneling => No - Circular Undermining => No - Exudate Amt => Small - Exudate Type => Serosanguineous - Wound Margin => Flat & Intact - Granulation Amt => Medium (34-66%) - Granulation Quality => [place] - Slough/Fibrin => Yes - Necrosis Amt => Small (1-33%) - Necrotic Tissue Type => Adherent Slough - Structure Exposed => N/A - Texture (Daily-wound Skin Appearance) => Assessed,Localized => Edema - Moisture (Daily-wound Skin Appearance) => Assessed,Dry/Scaly - Color (Daily-wound Skin Appearance) => Assessed, => Hemosiderin => Staining - Temperature (Daily-wound Skin => No Abnormality (Pt Appearance) => Warm) - Tenderness on Palpation (Daily-wound => No Skin Appearance) - Ulcer Cleansing => Rinsed/Irrigated => with Saline - Foul Odor after Cleansing => No - Anesthetic Used => 4% Lidocaine => Solution 2-RLE LATERAL - Current Size (cm) - Length => 2 - Current Size (cm) - Width => 3.5 - Current Size (cm) - Depth => 0.1 - Total Square Cm => 7.0 - Photo Taken => Yes - Epithelialization => Small 1-33% - Tunneling => No - Undermining/Tunneling => No - Circular Undermining => No - Classification - Thickness => Full Thickness => without Exposed => Support Structure - Exudate Amt => Medium - Exudate Type => Serosanguineous - Wound Margin => Distinct, Outline => Attached - Granulation Amt => Small (1-33%) - Granulation Quality => [place] - Slough/Fibrin => Yes - Necrosis Amt => Medium (34-66%) - Necrotic Tissue Type => Adherent Slough - Texture (Daily-wound Skin Appearance) => Assessed,Localized => Edema - Moisture (Daily-wound Skin Appearance) => Assessed,Dry/Scaly - Color (Daily-wound Skin Appearance) => Assessed - Temperature (Daily-wound Skin => No Abnormality (Pt Appearance) => Warm) - Tenderness on Palpation (Daily-wound => No Skin Appearance) - Ulcer Cleansing => Rinsed/Irrigated => with Saline - Foul Odor after Cleansing => No - Anesthetic Used => 4% Lidocaine => Solution 04/16/25 08:22 Wound Center Nurse 1 3-L LATERAL LEG\ -Combined with other wound No -Current Size (cm) - Length 1.0 -Current Size (cm) - Width 0.7 -Current Size (cm) - Depth 0.1 -Total Square Cm 0.70 -Photo Taken Yes -Epithelialization Medium 34-66% -Tunneling No -Undermining/Tunneling No -Circular Undermining No -Exudate Amt Small -Exudate Type Serosanguineous -Wound Margin Flat & Intact -Granulation Amt Medium (34-66%) -Granulation Quality [place] -Slough/Fibrin Yes -Necrosis Amt Small (1-33%) -Necrotic Tissue Type Adherent Slough -Structure Exposed N/A -Texture (Daily-wound Skin Appearance) Assessed, Localized Edema -Moisture (Daily-wound Skin Appearance) Assessed,Dry/ Scaly -Color (Daily-wound Skin Appearance) Assessed, Hemosiderin Staining -Temperature (Daily-wound Skin No Abnormality Appearance) (Pt Warm) -Tenderness on Palpation (Daily-wound No Skin Appearance) -Ulcer Cleansing Rinsed/ Irrigated with Saline -Foul Odor after Cleansing No -Anesthetic Used 4% Lidocaine Solution 2-RLE LATERAL -Current Size (cm) - Length 2 -Current Size (cm) - Width 3.5 -Current Size (cm) - Depth 0.1 -Total Square Cm 7.0 -Photo Taken Yes -Epithelialization Small 1-33% -Tunneling No -Undermining/Tunneling No -Circular Undermining No -Classification - Thickness Full Thickness without Exposed Support Structure -Exudate Amt Medium -Exudate Type Serosanguineous -Wound Margin Distinct, Outline Attached -Granulation Amt Small (1-33%) -Granulation Quality [place] -Slough/Fibrin Yes -Necrosis Amt Medium (34-66%) -Necrotic Tissue Type Adherent Slough -Texture (Daily-wound Skin Appearance) Assessed, Localized Edema -Moisture (Daily-wound Skin Appearance) Assessed,Dry/ Scaly -Color (Daily-wound Skin Appearance) Assessed -Temperature (Daily-wound Skin No Abnormality Appearance) (Pt Warm) -Tenderness on Palpation (Daily-wound No Skin Appearance) -Ulcer Cleansing Rinsed/ Irrigated with Saline -Foul Odor after Cleansing No -Anesthetic Used 4% Lidocaine Solution Lower Limb Edema Present Yes Right Calf (cm) 43.5 Right Ankle (cm) 26.5 Left Calf (cm) 42.1 Left Ankle (cm) 25.7 WC - Nurse 2 - General Ulcer CM Notes Start: 04/16/25 08:22 Freq: Status: Active Protocol: Activity Type Activity Date Activity User E-sign Co-sign Detail Recorded Client Recorded Date Recorded By Document 04/16/25 08:34 SHANNA [id number] 04/16/25 08:44 SHANNA 04/16/25 08:34 Wound Center Nurse 2 3-L LATERAL LEG\ -Time 08:38 -Correct Patient Yes -Correct Side, Site, Position Yes -Correct Procedure Yes -Procedure Performed Yes -Type of Procedure Debridement -Clinical Debridement Subcutaneous -Tissue Removed Subcutaneous -Post Debridement (cm) - Length 1.0 -Post Debridement (cm) - Width 0.8 -Post Debridement (cm) - Depth 0.1 -Total Square (Post) (cm) 0.80 -Area of Debridement (cm) - Length 1.0 -Area of Debridement (cm) - Width 0.8 -Total Square (Area) (cm) 0.80 -Tunneling No -Undermining/Tunneling No -Circular Undermining No -Wound/Ulcer Outcome Not Healed -Ulcer Cleansing Rinsed/ Irrigated with Saline -Foul Odor after Cleansing No -Bioengineered Tissue No -Bleeding Controlled with Pressure -Treatment Response Procedure Tolerated Well -Offloading No -Debridement - Subq, 1st 20sq cm No 2-RLE LATERAL -Time 08:39 -Correct Patient Yes -Correct Side, Site, Position Yes -Correct Procedure Yes -Procedure Performed Yes -Type of Procedure Debridement -Clinical Debridement Subcutaneous -Tissue Removed Subcutaneous -Post Debridement (cm) - Length 2.1 -Post Debridement (cm) - Width 3.6 -Post Debridement (cm) - Depth 0.1 -Total Square (Post) (cm) 7.56 -Area of Debridement (cm) - Length 2.1 -Area of Debridement (cm) - Width 3.6 -Total Square (Area) (cm) 7.56 -Tunneling No -Undermining/Tunneling No -Circular Undermining No -Wound/Ulcer Outcome Not Healed -Ulcer Cleansing Rinsed/ Irrigated with Saline -Foul Odor after Cleansing No -Bioengineered Tissue No -Bleeding Controlled with Pressure -Treatment Response Procedure Tolerated Well -Offloading No -Debridement - Subq, 1st 20sq cm No Pain Scale: 0-10 Numeric Is Patient Pain Free? Yes - Nurse 3 - General Ulcer D/C NN Start: 04/16/25 08:22 Freq: Status: Active Protocol: Activity Type Activity Date Activity User E-sign Co-sign Detail Recorded Client Recorded Date Recorded By Document 04/16/25 09:04 [id number] 04/16/25 09:04 04/16/25 09:04 Wound Care Center Nurse 3 3-L LATERAL LEG\ -Primary Dressing Applied Collagen Powder -Primary Dressing Covered/Secured with Dry Gauze, Secured with Tape -Collagen Powder 1 2-RLE LATERAL -Other Dressing HYDROGEL -Primary Dressing Covered/Secured with Dry Gauze, Secured with Tape BLE -Tubular Bandage Double Layer -Size of Tubigrip Used Size E -Size E ($) 4 Pain Scale: 0-10 Numeric Is Patient Pain Free? Yes - Visit Discharge Discharge Condition Stable Ambulatory Status Ambulatory Transportation Private Auto Medication Reconcilliation completed & No provided to patient/care provider Clinical Summary of Care Provided Yes Additional Wound Wound debrided: Left calf venous stasis ulceration Laterality: Left Type of Debridement: Excisional debridement Anesthesia Used: 5% Lidocaine Gel Depth: Down to and including healthy tissue and in the subcutaneous layer Percentage of wound debrided: 100 Instrument Used: 5mm curette Tissue Removed: Eschar and bioburden Severity: Fat Layer Exposed Amount of bleeding with debridement: Mild Bleeding Controlled with: Compression and gauze Patient tolerated procedure: Patient tolerated procedure well Charges/Coding Visit Charges Office Visits / Consults: [id number] OV L4 New 45min Assessment/Plan Assessment/Plan (1) Venous stasis ulcer: CODE(S): I83.009 - Varicose veins of unspecified lower extremity with ulcer of unspecified site; L97.909 - Non-pressure chronic ulcer of unspecified part of unspecified lower leg with unspecified severity QUALIFIERS: Venous stasis ulcer site: calf Varicose vein presence: without varicose veins Laterality: right Non-pressure ulcer stage: with fat layer exposed Qualified Code(s): I87.2 - Venous insufficiency (chronic) (peripheral); L97.212 - Non-pressure chronic ulcer of right calf with fat layer exposed (2) Venous stasis ulcer: CODE(S): I83.009 - Varicose veins of unspecified lower extremity with ulcer of unspecified site; L97.909 - Non-pressure chronic ulcer of unspecified part of unspecified lower leg with unspecified severity QUALIFIERS: Venous stasis ulcer site: calf Varicose vein presence: without varicose veins Laterality: left Non-pressure ulcer stage: with fat layer exposed Qualified Code(s): I87.2 - Venous insufficiency (chronic) (peripheral); L97.222 - Non-pressure chronic ulcer of left calf with fat layer exposed (3) Chronic venous insufficiency: CODE(S): I87.2 - Venous insufficiency (chronic) (peripheral) (4) Edema of right lower leg: CODE(S): R60.0 - Localized edema (5) Edema of left lower leg: CODE(S): R60.0 - Localized edema (6) Swelling of right lower extremity: CODE(S): M79.89 - Other specified soft tissue disorders (7) Swelling of left lower extremity: CODE(S): M79.89 - Other specified soft tissue disorders (8) Lipodermatosclerosis of both lower extremities: CODE(S): M79.3 - Panniculitis, unspecified (9) Hyperpigmentation: CODE(S): L81.9 - Disorder of pigmentation, unspecified (10) Obesity (BMI 30-39.9): CODE(S): E66.9 - Obesity, unspecified (11) History of tonsillectomy: CODE(S): Z90.89 - Acquired absence of other organs (12) History of elbow surgery: CODE(S): Z98.890 - Other specified postprocedural states (13) History of vasectomy: CODE(S): Z98.52 - Vasectomy status (14) History of left inguinal hernia repair: CODE(S): Z98.890 - Other specified postprocedural states; Z87.19 - Personal history of other diseases of the digestive system (15) Essential (primary) hypertension: CODE(S): I10 - Essential (primary) hypertension (16) Asthma: CODE(S): J45.909 - Unspecified asthma, uncomplicated (17) History of pulmonary embolism: CODE(S): Z86.711 - Personal history of pulmonary embolism PLAN: Plan This is a 59-year-old male with a long history of chronic venous insufficiency and associated manifestations. The patient presented with a venous ulceration on the lateral aspect of each calf. He also suffers from chronic lower extremity swelling and edema. A lengthy discussion has been undertaken regarding the conservative measures appropriate to the management of the patient's chronic venous disease. The patient has been encouraged to continue sleeping on a flat surface at night. Leg elevation has been encouraged during daytime hours, as much as possible. Leg elevation is to be to heart level, or higher. Prolonged idle sitting has been discouraged. Ambulation and activity have been encouraged. We are to implement compression to the lower extremities by means of double Tubigrips. These are to be donned upon awakening each day, and doffed at bedtime. We are to implement the use collagen hydrogel topically to each ulceration on a daily basis. The patient has been instructed in the appropriate means of application. Weight loss has also been discussed. For the long-term, the patient will require either graduated compression stocking or CircAid Velcro compression garments for the purpose of compression. The patient is to return in 1 week for reevaluation. Total time: 48 minutes
--- NOTE | 2025-04-18 09:06 | WC ---
Photo - Right Lat Leg 04/16/25
--- NOTE | 2025-04-18 09:11 | WC ---
PHOTO- LEFT LAT LE 04/16/25
[2025-04-23 08:08] VITALS: BP 195/115; PULSE 97; RESP 18; TEMP 36.3; BMI 37.0
--- NOTE | 2025-04-24 09:25 | WC ---
PHOTO-LLE LATERAL 04/23/25
--- NOTE | 2025-04-24 09:30 | WC ---
PHOTO-RLE LAT 04/23/25
--- NOTE | 2025-04-25 15:53 | PCM.WC.HP ---
History of Present Illness Date of Service: 04/23/25 Chief Complaint: Venous stasis ulcerations of the right and left calves History of Wound: This is a 59-year-old male with a history of chronic venous insufficiency, venous hypertension with inflammation, and venous stasis ulcerations in his lower extremities. He presented with an ulceration on the lateral aspect of both the right and left calves. The ulceration on the right calf had been present for approximately 3 weeks. The ulceration on the left calf had been present for approximately 1 week. The patient had been treated at the [facility] in the past for lower extremity venous stasis ulcerations. He had also undergone a right lower extremity endovenous laser ablation procedure several years ago. The patient suffers from chronic swelling and edema in his lower extremities bilaterally. Graduated compression stockings have been previously prescribed, but the patient is unable to don the stockings due to his inability to bend over. The patient is also noted to have a history of pulmonary embolism. He sleeps on a flat mattress at night. The patient was referred by his primary care physician, Dr. Ku, who had recently treated the patient for bilateral lower extremity cellulitis. He had been using antibiotic ointment topically to the ulcerations in his lower extremities. The patient recently completed a 7-day course of cephalexin 500 mg p.o. every 6 hours for a total of 7 days. The patient is mildly obese. He is not diabetic. [facility] Medical History (Updated 04/25/25 @ 16:[address] Randal Ford MD) Venous stasis dermatitis of right lower extremity Venous stasis ulcer Lipodermatosclerosis of both lower extremities History of pulmonary embolism Hyperpigmentation Obesity (BMI 30-39.9) Obesity (BMI 30.0-34.9) Venous stasis ulcer Venous stasis dermatitis of right lower extremity Hypertension Lipodermatosclerosis of right lower extremity Chronic venous insufficiency Edema of left lower leg Edema of right lower leg Swelling of left lower extremity Swelling of right lower extremity Traumatic injury of right lower extremity (07/2017) Umbilical hernia GERD (gastroesophageal reflux disease) Asthma Hypothyroidism Essential (primary) hypertension Left ventricular systolic dysfunction Home Medications ?Medication ?Instructions ?Recorded ?Last Taken ?Type amlodipine 10 mg tablet 10 mg PO DAILY 08/05/17 Unknown History carvedilol 25 mg tablet 25 mg PO BID 08/05/17 Unknown History losartan 100 mg tablet 100 mg PO DAILY 08/05/17 Unknown History montelukast 10 mg tablet 10 mg PO DAILY 08/05/17 Unknown History albuterol sulfate 90 mcg/actuation 2 puff inhalation Q4H PRN PRN Sob 05/30/19 Unknown History aerosol inhaler &/Or Wheezing hydrochlorothiazide 25 mg tablet 25 mg PO DAILY #90 tabs 07/20/19 Unknown Rx fluticasone fur. 200 mcg-umeclid 1 inh inhalation DAILY 04/17/21 Unknown History 62.5 mcg-vilant 25 mcg inhalat.powder (Trelegy Ellipta) furosemide 20 mg tablet 40 mg PO DAILY 08/03/22 Unknown History potassium chloride 20 mEq 20 meq PO DAILY 08/03/22 Unknown History tablet,extended release Allergy/AdvReac Type Severity Reaction Status Date / Time No Known Allergies Allergy Verified 04/14/23 10:25 Family History Mother Heart disease CAD (coronary artery disease) Lung cancer Grandmother Heart disease Sister Thyroid cancer Father Stomach cancer Other Cancer Surgical History History of tonsillectomy History of elbow surgery History of vasectomy History of left inguinal hernia repair History of elbow surgery H/O vasectomy History of tonsillectomy H/O left inguinal hernia repair Social History household members: spouse Smoking Status: Never smoker second hand exposure: No alcohol intake: current alcohol intake frequency: 3 or more drinks per day Alcohol type: beer details: beer substance use type: does not use meliza/faith: None seatbelt use: always do you feel safe at home: Yes Vital Signs Vital Signs Vital Signs: Weight Weight: 266 lb Body Mass Index (BMI) 37.0 Physical Exam Const alert, oriented x3, no apparent distress, no limitations, healthy appearing and well nourished Constitutional Narrative: The patient is mildly obese, with a BMI of 37.1. General Appearance: cooperative, comfortable, well kempt and well developed Orientation / Consciousness: awake, oriented to person, oriented to place and oriented to time Exam Limitations: no limitations HEENT normocephalic and head/scalp atraumatic Head and Scalp: normal to inspection, normocephalic and atraumatic Face and Sinus: normal facial exam Nose: external nose normal External Ear: external ears normal Eyes EOMs intact bilaterally General Eye: normal appearance of both eyes Neck full ROM Resp normal respiratory effort, normal air movement, no retractions and no use of accessory muscles Effort and Inspection: able to speak in complete sentences Extremity no calf tenderness General Extremity: Negative for clubbing or cyanosis Skin Wound Narrative: Moderate swelling and edema are noted in the patient's lower extremities bilaterally. Hemosiderin staining and hyperpigmentation are noted in the gaiter areas bilaterally. An ulceration is noted on the distal right lateral calf. Dimensions are documented elsewhere. The ulceration is full-thickness, extending through all layers of the dermis and into the subcutaneous tissues. Ulcer margins are well beveled. There is an ulceration on the left mid lateral calf. Dimensions are documented elsewhere. The ulceration is full-thickness, extending through all layers of the dermis and into the subcutaneous tissues. Ulcer margins are well beveled. There is no sign of infection or cellulitis at either ulceration site. There is a moderate amount of bioburden and slough at each site. Dry, scaly venous stasis dermatitis is noted in the right gaiter area. Neuro oriented x3, CN's II-XII intact bilaterally, moves all extremities, no focal motor deficits and no sensory deficits noted Sensorium / Orientation: awake, alert, oriented to person, oriented to place and oriented to time Speech: speech normal Psych Appearance: grossly normal and appropriate Attitude: calm Activity / Motor Behavior: appropriate eye contact Speech: normal speech Mood & Affect: euthymic mood Thought Process: normal thought process Thought Content: normal thought content Attention / Concentration: attention grossly intact Debridement Note Debridement Note Wound debrided: Right lateral calf venous stasis ulceration Laterality: Right Type of Debridement: Excisional debridement Anesthesia Used: 5% Lidocaine Gel Depth: Down to and including healthy tissue and in the subcutaneous layer Percentage of wound debrided: 100 Instrument Used: 5mm curette Tissue Removed: Bioburden and slough Severity: Fat Layer Exposed Amount of bleeding with debridement: Mild Bleeding Controlled with: Compression and gauze Patient tolerated procedure: Patient tolerated procedure well Post-Debridement Measurements and Additional Note: Post-Debridement Measurements/Treatment PAULA - Nurse 1 - General Ulcer Assessment Start: 04/16/25 08:22 Freq: Status: Active Protocol: SHANEXT Activity Type Activity Date Activity User E-sign Co-sign Detail Recorded Client Recorded Date Recorded By Document 04/16/25 08:22 SHANNA [id number] 04/16/25 08:27 SHANNA Document 04/23/25 08:08 RIRI [id number] 04/23/25 08:16 KW 04/16/25 04/23/25 08:22 08:08 WC - Today's Visit Information Type of service Follow-up Visit Follow-up Visit (Physician/MARKETING RESEARCHER (Physician/MARKETING RESEARCHER ) ) Arrival Mode Ambulatory Ambulatory Patient Identification Verified (Name & Yes Yes ) Patient Requires Transmission-Based No Precautions Height and Weight Height 5 ft 11 in Weight 266 lb Weight in Pounds 266.0 lbs Body Mass Index (BMI) 37.0 37.0 BMI Classification Obese Obese Vital Signs Temperature (97.8 F-99.1 F) 97.5 F L 97.3 F L Temperature Source Temporal Temporal Pulse Rate (60-100) 100 97 Pulse Location Monitor Monitor Respiratory Rate (12-18) 16 18 Respiratory rate source Observation Observation Oxygen Delivery Method Room Air Blood Pressure (90/60-120/80) 109/72 195/115 H Blood Pressure Mean 84 141 Source Monitor Monitor Position Sitting Semi-Fowlers Blood Pressure Location Left Arm Left Arm History Since Last Visit- (Skip if this is Patient's initial visit) Have you changed medications since your No last visit? Any new allergies or adverse reactions No Had a fall/change in ADL's that may No increase risk of falls Signs or symptoms of abuse and/or No neglect since last visit Have you been in the hospital since your No last visit? Has dressing in place as prescribed No Has compression in place as prescribed No Has offloadiing in place as prescribed N/A Experienced any changes in pain level or No management Left Footwear Regular Shoe Regular Shoe Right Footwear Regular Shoe Regular Shoe Pain Scale: 0-10 Numeric Is Patient Pain Free? Yes No RLE -Description Burning -Comments FEELS LIKE AN ELECTRIC PULSE Communication Assessment Preferred language [place] Able to Read Yes Able to Write Yes Communication Tools None Caregiver Communication Skills No Impairment Impairment Right Hearing Abillity Normal Left Hearing Abillity Normal Visual Assistive Devices Glasses Teaching Assessment Preferences Verbal Barriers to Learning None Readiness To Learn Good Willingness to Engage in Self Management Med Activies Readiness to Engage in Self Management Med Activities Anxiety Level Calm Cooperation Cooperative Perception Coherent Interest in Health Problem Asks Questions Education Importance Acknowledges Need Does Patient Smoke tobacco or other No substances Smoking Status Never smoker Is Patient Diabetic No Functional Assessment Recent Decline in Ability to Perform Denies Any Declines Culture/Sikhism/Leadership Development Instructor Cultural/Sikhism Needs that may affect No Treatment Plan Would you allow our [facility] marine fisheries technician to No meet you for the purpose of spiritual/ emotional support? Leadership Development Instructor to contact place of sikhism No Teaching: Wound Center Compression Wraps & Stockings -Person Taught Patient -Teaching Method Discussion, Demonstration -Response to teaching Reinforcement Needed WC - Nurse 1 - General Ulcer Measurement Start: 04/16/25 08:22 Freq: Status: Active Protocol: Activity Type Activity Date Activity User E-sign Co-sign Detail Recorded Client Recorded Date Recorded By Document 04/16/25 08:22 JF [id number] 04/16/25 08:27 JF Edit Result 04/16/25 08:22 JF (1) [id number] 04/16/25 08:29 JF Document 04/23/25 08:08 KW [id number] 04/23/25 08:16 KW (1) 3-L LATERAL LEG\ - Combined with other wound => No - Current Size (cm) - Length => 1.0 - Current Size (cm) - Width => 0.7 - Current Size (cm) - Depth => 0.1 - Total Square Cm => 0.70 - Photo Taken => Yes - Epithelialization => Medium 34-66% - Tunneling => No - Undermining/Tunneling => No - Circular Undermining => No - Exudate Amt => Small - Exudate Type => Serosanguineous - Wound Margin => Flat & Intact - Granulation Amt => Medium (34-66%) - Granulation Quality => [place] - Slough/Fibrin => Yes - Necrosis Amt => Small (1-33%) - Necrotic Tissue Type => Adherent Slough - Structure Exposed => N/A - Texture (Daily-wound Skin Appearance) => Assessed,Localized => Edema - Moisture (Daily-wound Skin Appearance) => Assessed,Dry/Scaly - Color (Daily-wound Skin Appearance) => Assessed, => Hemosiderin => Staining - Temperature (Daily-wound Skin => No Abnormality (Pt Appearance) => Warm) - Tenderness on Palpation (Daily-wound => No Skin Appearance) - Ulcer Cleansing => Rinsed/Irrigated => with Saline - Foul Odor after Cleansing => No - Anesthetic Used => 4% Lidocaine => Solution 2-RLE LATERAL - Current Size (cm) - Length => 2 - Current Size (cm) - Width => 3.5 - Current Size (cm) - Depth => 0.1 - Total Square Cm => 7.0 - Photo Taken => Yes - Epithelialization => Small 1-33% - Tunneling => No - Undermining/Tunneling => No - Circular Undermining => No - Classification - Thickness => Full Thickness => without Exposed => Support Structure - Exudate Amt => Medium - Exudate Type => Serosanguineous - Wound Margin => Distinct, Outline => Attached - Granulation Amt => Small (1-33%) - Granulation Quality => [place] - Slough/Fibrin => Yes - Necrosis Amt => Medium (34-66%) - Necrotic Tissue Type => Adherent Slough - Texture (Daily-wound Skin Appearance) => Assessed,Localized => Edema - Moisture (Daily-wound Skin Appearance) => Assessed,Dry/Scaly - Color (Daily-wound Skin Appearance) => Assessed - Temperature (Daily-wound Skin => No Abnormality (Pt Appearance) => Warm) - Tenderness on Palpation (Daily-wound => No Skin Appearance) - Ulcer Cleansing => Rinsed/Irrigated => with Saline - Foul Odor after Cleansing => No - Anesthetic Used => 4% Lidocaine => Solution 04/16/25 04/23/25 08:22 08:08 Wound Center Nurse 1 3-L LATERAL LEG\ -Combined with other wound No -Current Size (cm) - Length 1.0 0.9 -Current Size (cm) - Width 0.7 0.6 -Current Size (cm) - Depth 0.1 0.1 -Total Square Cm 0.70 0.54 -Date of Last Picture (Recall this 04/23/25 field) -Photo Taken Yes -Epithelialization Medium 34-66% Medium 34-66% -Tunneling No -Undermining/Tunneling No -Circular Undermining No -Exudate Amt Small Small -Exudate Type Serosanguineous Serosanguineous -Wound Margin Flat & Intact Distinct, Outline Attached -Granulation Amt Medium (34-66%) Large (67-100%) -Granulation Quality [place],Red -Slough/Fibrin Yes -Necrosis Amt Small (1-33%) -Necrotic Tissue Type Adherent Slough -Structure Exposed N/A -Texture (Daily-wound Skin Appearance) Assessed, Assessed Localized Edema -Moisture (Daily-wound Skin Appearance) Assessed,Dry/ No Abnormality Scaly -Color (Daily-wound Skin Appearance) Assessed, Assessed, Hemosiderin Hemosiderin Staining Staining -Temperature (Daily-wound Skin No Abnormality No Abnormality Appearance) (Pt Warm) (Pt Warm) -Tenderness on Palpation (Daily-wound No No Skin Appearance) -Ulcer Cleansing Rinsed/ Rinsed/ Irrigated with Irrigated with Saline Saline -Foul Odor after Cleansing No No -Anesthetic Used 4% Lidocaine 5% Lidocaine Solution Gel 2-RLE LATERAL -Current Size (cm) - Length 2 3 -Current Size (cm) - Width 3.5 1.6 -Current Size (cm) - Depth 0.1 0.1 -Total Square Cm 7.0 4.8 -Date of Last Picture (Recall this 04/23/25 field) -Photo Taken Yes -Epithelialization Small 1-33% -Tunneling No -Undermining/Tunneling No -Circular Undermining No -Classification - Thickness Full Thickness without Exposed Support Structure -Exudate Amt Medium Medium -Exudate Type Serosanguineous Serosanguineous -Wound Margin Distinct, Distinct, Outline Outline Attached Attached -Granulation Amt Small (1-33%) Large (67-100%) -Granulation Quality [place] Red -Slough/Fibrin Yes -Necrosis Amt Medium (34-66%) Small (1-33%) -Necrotic Tissue Type Adherent Slough Adherent Slough -Texture (Daily-wound Skin Appearance) Assessed, Assessed Localized Edema -Moisture (Daily-wound Skin Appearance) Assessed,Dry/ Assessed,Dry/ Scaly Scaly -Color (Daily-wound Skin Appearance) Assessed Assessed, Erythema, Hemosiderin Staining -Temperature (Daily-wound Skin No Abnormality No Abnormality Appearance) (Pt Warm) (Pt Warm) -Tenderness on Palpation (Daily-wound No No Skin Appearance) -Ulcer Cleansing Rinsed/ Rinsed/ Irrigated with Irrigated with Saline Saline -Foul Odor after Cleansing No No -Anesthetic Used 4% Lidocaine 5% Lidocaine Solution Gel Lower Limb Edema Present Yes Right Calf (cm) 43.5 42.5 Right Ankle (cm) 26.5 25 Left Calf (cm) 42.1 40.5 Left Ankle (cm) 25.7 24 - Nurse 2 - General Ulcer CM Notes Start: 04/16/25 08:22 Freq: Status: Active Protocol: Activity Type Activity Date Activity User E-sign Co-sign Detail Recorded Client Recorded Date Recorded By Document 04/16/25 08:34 JF [id number] 04/16/25 08:44 JF Document 04/23/25 08:52 DS [id number] 04/23/25 08:57 DS 04/16/25 04/23/25 08:34 08:52 Wound Center Nurse 2 3-L LATERAL LEG\ -Time 08:38 08:52 -Correct Patient Yes Yes -Correct Side, Site, Position Yes Yes -Correct Procedure Yes Yes -Procedure Performed Yes Yes -Type of Procedure Debridement Debridement -Clinical Debridement Subcutaneous Subcutaneous -Tissue Removed Subcutaneous Subcutaneous -Post Debridement (cm) - Length 1.0 0.8 -Post Debridement (cm) - Width 0.8 0.6 -Post Debridement (cm) - Depth 0.1 0.1 -Total Square (Post) (cm) 0.80 0.48 -Area of Debridement (cm) - Length 1.0 0.8 -Area of Debridement (cm) - Width 0.8 0.6 -Total Square (Area) (cm) 0.80 0.48 -Tunneling No No -Undermining/Tunneling No No -Circular Undermining No No -Wound/Ulcer Outcome Not Healed Not Healed -Ulcer Cleansing Rinsed/ GAUZE Irrigated with Saline -Foul Odor after Cleansing No No -Bioengineered Tissue No No -Bleeding Controlled with Pressure Pressure -Treatment Response Procedure Procedure Tolerated Well Tolerated Well -Offloading No -Debridement - Subq, 1st 20sq cm No Yes 2-RLE LATERAL -Time 08:39 08:53 -Correct Patient Yes Yes -Correct Side, Site, Position Yes Yes -Correct Procedure Yes Yes -Procedure Performed Yes Yes -Type of Procedure Debridement Debridement -Clinical Debridement Subcutaneous Subcutaneous -Tissue Removed Subcutaneous Subcutaneous -Post Debridement (cm) - Length 2.1 3.1 -Post Debridement (cm) - Width 3.6 2.0 -Post Debridement (cm) - Depth 0.1 0.1 -Total Square (Post) (cm) 7.56 6.20 -Area of Debridement (cm) - Length 2.1 3.1 -Area of Debridement (cm) - Width 3.6 2.0 -Total Square (Area) (cm) 7.56 6.20 -Tunneling No No -Undermining/Tunneling No No -Circular Undermining No No -Wound/Ulcer Outcome Not Healed Not Healed -Ulcer Cleansing Rinsed/ GAUZE Irrigated with Saline -Foul Odor after Cleansing No No -Bioengineered Tissue No No -Bleeding Controlled with Pressure Pressure -Treatment Response Procedure Procedure Tolerated Well Tolerated Well -Offloading No -Debridement - Subq, 1st 20sq cm No No Pain Scale: 0-10 Numeric Is Patient Pain Free? Yes Yes - Nurse 3 - General Ulcer D/C NN Start: 04/16/25 08:22 Freq: Status: Active Protocol: Activity Type Activity Date Activity User E-sign Co-sign Detail Recorded Client Recorded Date Recorded By Document 04/16/25 09:04 [id number] 04/16/25 09:04 04/16/25 09:04 Wound Care Center Nurse 3 3-L LATERAL LEG\ -Primary Dressing Applied Collagen Powder -Primary Dressing Covered/Secured with Dry Gauze, Secured with Tape -Collagen Powder 1 2-RLE LATERAL -Other Dressing HYDROGEL -Primary Dressing Covered/Secured with Dry Gauze, Secured with Tape BLE -Tubular Bandage Double Layer -Size of Tubigrip Used Size E -Size E ($) 4 Pain Scale: 0-10 Numeric Is Patient Pain Free? Yes - Visit Discharge Discharge Condition Stable Ambulatory Status Ambulatory Transportation Private Auto Medication Reconcilliation completed & No provided to patient/care provider Clinical Summary of Care Provided Yes Additional Wound Wound debrided: Left lateral calf venous stasis ulceration Laterality: Left Type of Debridement: Excisional debridement Anesthesia Used: 5% Lidocaine Gel Depth: Down to and including healthy tissue and in the subcutaneous layer Percentage of wound debrided: 100 Instrument Used: 5mm curette Tissue Removed: Bioburden and slough Severity: Fat Layer Exposed Amount of bleeding with debridement: Mild Bleeding Controlled with: Compression and gauze Patient tolerated procedure: Patient tolerated procedure well Charges/Coding Procedures Integumentary [id number]: [id number] Wilma subq tissue 20 sq cm/< Assessment/Plan Assessment/Plan (1) Venous stasis ulcer: CODE(S): I83.009 - Varicose veins of unspecified lower extremity with ulcer of unspecified site; L97.909 - Non-pressure chronic ulcer of unspecified part of unspecified lower leg with unspecified severity QUALIFIERS: Venous stasis ulcer site: calf Varicose vein presence: without varicose veins Laterality: right Non-pressure ulcer stage: with fat layer exposed Qualified Code(s): I87.2 - Venous insufficiency (chronic) (peripheral); L97.212 - Non-pressure chronic ulcer of right calf with fat layer exposed (2) Venous stasis ulcer: CODE(S): I83.009 - Varicose veins of unspecified lower extremity with ulcer of unspecified site; L97.909 - Non-pressure chronic ulcer of unspecified part of unspecified lower leg with unspecified severity QUALIFIERS: Venous stasis ulcer site: calf Varicose vein presence: without varicose veins Laterality: left Non-pressure ulcer stage: with fat layer exposed Qualified Code(s): I87.2 - Venous insufficiency (chronic) (peripheral); L97.222 - Non-pressure chronic ulcer of left calf with fat layer exposed (3) Venous stasis dermatitis of right lower extremity: CODE(S): I87.2 - Venous insufficiency (chronic) (peripheral) (4) Chronic venous insufficiency: CODE(S): I87.2 - Venous insufficiency (chronic) (peripheral) (5) Edema of right lower leg: CODE(S): R60.0 - Localized edema (6) Edema of left lower leg: CODE(S): R60.0 - Localized edema (7) Swelling of right lower extremity: CODE(S): M79.89 - Other specified soft tissue disorders (8) Swelling of left lower extremity: CODE(S): M79.89 - Other specified soft tissue disorders (9) Lipodermatosclerosis of both lower extremities: CODE(S): M79.3 - Panniculitis, unspecified (10) Hyperpigmentation: CODE(S): L81.9 - Disorder of pigmentation, unspecified (11) Obesity (BMI 30-39.9): CODE(S): E66.9 - Obesity, unspecified (12) History of tonsillectomy: CODE(S): Z90.89 - Acquired absence of other organs (13) History of elbow surgery: CODE(S): Z98.890 - Other specified postprocedural states (14) History of vasectomy: CODE(S): Z98.52 - Vasectomy status (15) History of left inguinal hernia repair: CODE(S): Z98.890 - Other specified postprocedural states; Z87.19 - Personal history of other diseases of the digestive system (16) Essential (primary) hypertension: CODE(S): I10 - Essential (primary) hypertension (17) Asthma: CODE(S): J45.909 - Unspecified asthma, uncomplicated (18) History of pulmonary embolism: CODE(S): Z86.711 - Personal history of pulmonary embolism PLAN: Plan This is a 59-year-old male with a long history of chronic venous insufficiency and associated manifestations. The patient presented with a venous ulceration on the lateral aspect of each calf. He also suffers from chronic lower extremity swelling and edema. A lengthy discussion has been undertaken regarding the conservative measures appropriate to the management of the patient's chronic venous disease. The patient has been encouraged to continue sleeping on a flat surface at night. Leg elevation has been encouraged during daytime hours, as much as possible. Leg elevation is to be to heart level, or higher. Prolonged idle sitting has been discouraged. Ambulation and activity have been encouraged. We are to continue compression to the lower extremities by means of double Tubigrips. These are to be donned upon awakening each day, and doffed at bedtime. We are to continue the use collagen hydrogel and Adaptic topically to each ulceration on a daily basis. The patient has been instructed in the appropriate means of application. Moisturizing skin lotion has been recommended for the dry, scaly dermatitis in the right gaiter area. Weight loss has also been discussed. For the long-term, the patient will require either graduated compression stockings or CircAid Velcro compression garments for the purpose of compression. He appears to prefer CircAid Velcro compression garments. We are to obtain a venous duplex examination of the lower extremities to assess superficial venous competence. The patient is to return in 1 week for reevaluation. Total time: 26 minutes
--- NOTE | 2025-05-03 07:55 | VDLE_ITS ---
Reason For Study Reason For Study: CVI RIGHT LEFT CFV is compressible, spontaneous, phasic, competent CFV is compressible, spontaneous, phasic, competent, and demonstrates normal augmentation. and demonstrates normal augmentation. FV is compressible, spontaneous, phasic, competent FV is compressible, spontaneous, phasic, competent and demonstrates normal augmentation. and demonstrates normal augmentation. POP V is compressible, spontaneous, phasic, competent POP V is compressible, spontaneous, phasic, competent and demonstrates normal augmentation. and demonstrates normal augmentation. T/P Trunk is compressible. T/P Trunk is compressible. PTV is compressible. PTV is compressible. RT PerV is compressible. LT PerV is compressible. Rt GastrocV is partially compressible with bright SFJ is competent and measures 0.61cm x 0.53 cm. intraluminal echoes consistent with chronic DVT GSV proximal thigh measures 0.42cm x 0.48 cm. Rt GSV is not visualized from SFJ to mid calf s/p GSV at knee measures 0.28cm x 0.26 cm. ablation GSV above knee is competent. Rt GSV is INCOMPETENT at mid and distal calf. GSV below knee is INCOMPETENT for greater than 0.5 SFJ is competent and measures 0.58 cm. seconds. SSV mid calf is competent and measures 0.32cm x 0.32 SSV mid calf is competent and measures 0.30cm x 0.32 cm. cm. Procedure This is a venous duplex using B-mode, color flow and spectral Doppler. Exam performed in department. Patient was scanned in reverse Trendelenburg position during reflux assessment. A preliminary report was called and/or faxed to Dr. Ford. VL/Venous Duplex US - Tang Extrem Interpretation Summary Chronic venous changes are noted in the right gastrocnemius vein, which is part ially compressible and demonstrates bright intraluminal echogenicity. The remainder of the right lower extremity de ep venous system is patent and compressible. Deep veins of the left lower extremity are patent and compressibl e segmentally. There is no evidence of left lower extremity deep vein thrombosis. Valvular competence appears intact w ithin the proximal deep venous systems bilaterally. Sapheno-femoral junctions are bilaterally competent . The right gr eat saphenous vein is absent from the right sapheno-femoral junction to the mid-calf, consistent with a prior venous ablation procedure. The right great saphenous vein is patent and incompetent in the right mid- and distal calf. The left great saphenous vein is patent and competent above the knee. The left great saphenous vein is patent and incompete nt below the knee. Small saphenous veins are patent and competent bilaterally. Ordering Physician: Randal Ford Referring Physician: Baudilio Ku Performed By: Yvonne Matson, AMI, RVT
== END 2025-05-14 23:59 | disposition home or self-care (01) ==
LOC: WC 08:00
PROVIDERS: PCP Family Medicine; Referring Provider Surgery; Visit Provider Surgery
DX: I87.333 Chronic venous hypertension (idiopathic) with ulcer and inflammation of bilateral lower extremity (principal); L97.222 Non-pressure chronic ulcer of left calf with fat layer exposed; L97.212 Non-pressure chronic ulcer of right calf with fat layer exposed; Z68.37 Body mass index [BMI] 37.0-37.9, adult; Z79.899 Other long term (current) drug therapy; E66.9 Obesity, unspecified; R60.0 Localized edema; Z86.711 Personal history of pulmonary embolism; M79.89 Other specified soft tissue disorders; L81.9 Disorder of pigmentation, unspecified
CPT/HCPCS: 11042; 93970; 99214; G0463

== ENCOUNTER → 2025-07-01 | Outpatient (CLI) | payer OTHER, SELFPAY ==
[2025-07-01 07:00] LABS: Hematocrit 51.1 % (40-54); Hemoglobin 16.8 g/dL (13.0-16.5); Immature Granulocytes Count 0.050 X10^3/uL (0.0-0.0); Mean Corp Hgb Conc 32.9 g/dL (32-36); Mean Corpuscular Volume 100.8 fL (80-94); Mean Platelet Vol. 10.0 fl (6.2-12.0); NRBC Flagged by Analyzer 0 % (0-5); Platelet Count 216 K/mm3 (150-450); RBC Distribution Width CV 12.1 % (11.6-14.6); RBC Distribution Width SD 45.3 fl (35.1-43.9); Red Blood Count 5.07 M/mm3 (4.6-6.2); White Blood Count 8.6 K/mm3 (4.4-11.0)
[2025-07-01 07:11] LABS: D-Dimer Quantitative (DVT/PE) 0.27 FEU/ug/m (0.27-0.49)
[2025-07-01 07:35] LABS: AST(SGOT) 41 U/L (<=37); Alanine Aminotransfer ALT/SGPT 58 U/L (<=46); Albumin, Serum 4.3 g/dL (3.4-4.8); Alkaline Phosphatase 84 U/L (40-129); Anion Gap 12 (5-15); BUN 10 mg/dL (4-19); BUN/Creat Ratio 13.1 RATIO (10-20); Calcium,Total 9.4 mg/dL (7.6-11.0); Carbon Dioxide 27.1 mmol/L (21.0-32.0); Chloride 104 mmol/L (98-108); Cholesterol 189 mg/dL (<=200); Globulin 3.5 g/dL (2.2-4.2); Glucose 100 mg/dL (70-99); Low Density Lipoprotein Calc. 115 mg/dL; Potassium 4.0 mmol/L (3.3-5.1); Pro- Brain NATRIURETIC PEPTIDE 335 pg/mL (<=900); Triglycerides 98 mg/dL; Very Low Density Lipoprotein 20 mg/dL (5-40); cholesterol:hdl ratio screen 3.37
== END | disposition home or self-care (01) ==
LOC: LAB 05:58
PROVIDERS: PCP Family Medicine; Referring Provider Family Medicine; Visit Provider Family Medicine
DX: Z00.00 Encounter for general adult medical examination without abnormal findings (principal); I42.9 Cardiomyopathy, unspecified; R06.09 Other forms of dyspnea; R73.01 Impaired fasting glucose
CPT/HCPCS: 36415; 80053; 80061; 83036; 83880; 84443; 85025; 85379

== ENCOUNTER → 2025-07-17 | Outpatient (CLI) | payer OTHER, SELFPAY ==
--- NOTE | 2025-07-17 08:45 | RAD_ITS ---
PROCEDURE: ESOPHAGUS DUAL CONTRAST 07/17/2025 REASON FOR EXAM: DYSOHAGIA TECHNIQUE: ESOPHAGUS DUAL CONTRAST FLUOROSCOPIC TIME: 39 seconds. Radiation dose: 9.7 mGy FLUOROGRAPHIC IMAGES: 16 COMPARISON: None FINDINGS: The patient ingested barium. Multiple fluoroscopic images were obtained. The esophagus is unremarkable. No evidence of obstruction. No gastroesophageal reflux. The patient ingested a 12 mm tablet the barium without any difficulty. RAD/Esophagus Dual Contrast IMPRESSION: Unremarkable air-contrast esophagram. Reading Location: [facility]
--- OUTSIDE RECORDS SUMMARY | 2025-07-17 09:13 | XMS RPT_ITS | CCD ---
Author Organization [facility] Care Team Providers Care Computer Publisher Name Role Phone Rossy HERNANDEZ, Abner Smart Unavailable Dr. Baudilio Ku DO Primary Care Physician [phone] Dr. Baudilio Ku DO Referring Provider Liliana HERNANDEZ, Dr. Randal Webster Attending Physician Liliana HERNANDEZ, Dr. Randal Webster Nurse Practitioner Liliana HERNANDEZ, Dr. Randal Webster Referring Provider Buadilio Ku Attending Unavailable Baudilio Ku Primary Care Unavailable Baudilio Ku Referring Unavailable Randal Ford Attending Unavailable Baudilio Ku Primary Care Unavailable Randal Ford Referring Unavailable Baudilio Ku Primary Care Unavailable Randal Ford Referring Unavailable Randal Ford Attending Unavailable Medications Current Medications Medication Drug Class(es) Dates Sig (Normalized) Sig (Original) amLODIPine 10 mg oral tablet (9 sources) Dihydropyridine Calcium Channel Carleen Start: 08-05-2017 take 1 tablet by mouth once daily carvedilol 25 mg oral tablet (10 sources) alpha-Adrenergic Carleen, beta-Adrenergic Carleen Start: 08-05-2017 take 1 tablet by mouth twice daily Fluticasone-Umecl idin-Vilanter (9 sources) Start: 04-17-2021 Start: 04-17-2021 Fluticasone-Um eclidin-Vilanter (Trelegy Ellipta) 200-62.5-25 mcg Blister With Device Active 1 INH INHALATION DAILY April 17, 2021 12:00am Start: 04-17-2021 Fluticasone-Um eclidin-Vilanter (Trelegy Ellipta) 200-62.5-25 mcg Blister With Device Active 1 INH INHALATION DAILY April 16, 2021 11:00pm furosemide 20 mg oral tablet (9 sources) Loop Diuretic Start: 08-03-2022 take 2 tablets by mo uth once daily Start: 08-03-2022 take 40 mg by mouth once daily Furosemide Active 40 MG PO DAILY August 03, 2022 12:00am Start: 08-03-2022 take 20 mg by mouth once daily Furosemide Active 20 MG PO DAILY August 03, 2022 1:00am hydroCHLOROthiazide 25 mg oral tablet (18 sources) Thiazide Diuretic Start: 2018 End: 07-20-2019 take 1 tablet by mouth once daily losartan potassium 100 mg oral tablet (10 sources) Angiotensin 2 Receptor Carleen Start: 08-05-2017 take 1 tablet by mouth once daily montelukast 10 mg oral table t (9 sources) Leukotriene Receptor Antagonist Start: 08-05-2017 take 1 tablet by mouth once daily potassium chloride 20 meq extended release oral tablet (9 sources) Start: 08-03-2022 take 1 tablet by mouth once daily Completed/Discontinued Medications Medication Drug Class(es) Dates Sig (Normalized) Sig (Original) acetaminophen 325 mg / oxyCODONE hydrochloride 5 mg oral tablet (9 sources) Opioid Agonist Start: 08-05-2017 End: 05-23-2018 Oxycodone-Acetamino phen 1 TABLET tablet Discontinued 1 {tbl} PO EVERY 6 HOURS NEEDED as needed for Pain August 05, 2017 1:00am May 23, 2018 6:59pm Start: 08-05-2017 End: 05-23-2018 take 1 tablet by mouth every six hours as needed Oxycodone-Acetaminophen Discontinued 1 TABLET PO EVERY 6 HOURS NEEDED August 05, 2017 12:00am May 23, 2018 5:59pm 60 actuat albuterol 0.09 mg/actuat metered dose inhaler (10 sources) beta2-Adrenergic Agonist Start: 08-03-2019 SHWETA CATE HFA 108 (90 Base) MCG/ACT AERS as directed as needed ALBUTEROL SULFATE [id number] Alondra Leal LPN Start: 05-30-2019 Start: 05-30-2019 take 1 puff(s) by in halation every four hours as needed Albuterol Sulfate Active 2 PUFF INHALATION EVERY 4 HOURS NEEDED May 29, 2019 11:00pm albuterol 0.833 mg/ml / ipratropium bromide 0.167 mg/ml inhalation solution (9 sources) Anticholinergic, beta2-Adrenergic Agonist Start: 04-17-2021 End: 08-03-2022 take 1 mL by inhalation every four hours as needed Ipratropium-Albuterol 0.5 mg-3 mg(2.5 mg base)/3 mL Solution For Nebulization Discontinued 3 mL INHALATION Q4H as needed for sob April 17, 2021 12:00am August 03, 2022 11:53am Start: 04-17-2021 End: 08-03-2022 take 1 mL by inhalation every four hours Ipratropium-Albuterol Discontinued 3 ML INHALATION Q4H April 16, 2021 11:00pm August 03, 2022 10:53am amoxicillin 875 mg / clavulanate 125 mg oral tablet (9 sources) Penicillin-class Antibacterial Start: 04-19-2021 End: 08-03-2022 Amoxicillin-Pot Clavulanate (Augmentin) 875-125 mg tablet Discontinued 1 {tbl} PO Q12H 10 0 April 19, 2021 12:00am August 03, 2022 11:51am apixaban 5 mg oral tablet (9 sources) Factor Xa Inhibitor Start: 04-19-2021 End: 08-03-2022 take 2 tablets by mouth twice daily, then take 1 tablet by mouth twice daily Apixaban (Eliquis) 5 mg tablet Discontinued 10 mg PO TWICE A DAY 60 2 April 19, 2021 12:00am August 03, 2022 11:52am Take 2 tabs twice a day for 5 more days then take 1 tab twice a day 120 actuat budesonide 0.16 mg/actuat / formoterol fumarate 0.0045 mg/actuat metered dose inhaler (10 sources) Corticosteroid, beta2-Adrenergic Agonist Start: 08-03-2019 SYMBICORT 160-4.5 MCG/ACT AERO 2 puffs twice daily BUDESONIDE-FORMOTERO L FUMARATE [id number] Alondra Leal LPN Start: 08-05-2017 End: 05-30-2019 Budesonide-Formoterol 6 GM H FA aerosol inhaler Discontinued 10.2 g IH TWICE A DAY August 05, 2017 1:00am May 30, 2019 10:25pm Start: 08-05-2017 End: 05-30-2019 take 10.2 g by inhalation twice daily Budesonide-Formoterol Discontinued 10.2 GM IH TWICE A DAY August 05, 2017 12:00am May 30, 2019 9:25pm dexamethasone 6 mg oral tablet (9 sources) Corticosteroid Start: 04-19-2021 End: 08-03-2022 take 1 tablet by mouth once daily Dexamethasone (Decadron) 6 mg tablet Discontinued 6 mg PO DAILY 8 0 April 19, 2021 12:00am August 03, 2022 11:53am ibuprofen 800 mg oral tablet (9 sources) Nonsteroidal Anti-inflammatory Drug Start: 08-05-2017 End: 05-23-2018 take 1 tablet by mouth three times daily as needed for pain Ibuprofen 800 MG tablet Discontinued 800 mg PO 3 TIMES DAILY NEEDED as needed for Pain 30 10 0 August 05, 2017 5:38pm May 23, 2018 6:59pm predniSONE 20 mg oral tablet (9 sources) Start: 08-05-2017 End: 05-23-2018 take 1 tablet by mouth four times daily Prednisone 20 MG tablet Discontinued 20 mg PO 4 TIMES DAILY August 05, 2017 1:00am May 23, 2018 6:59pm tiotropium 0.018 mg inhalant powder (1 source) Anticholinergic Start: 08-03-2019 SPIRIVA HANDIHALER 18 MCG CAPS 1 puff daily TIOTROPIUM BROMIDE MONOHYDRATE [id number] Alondra Leal LPN traMADol hydrochloride 50 mg oral tablet (9 sources) Opioid Agonist Start: 08-05-2017 End: 2018 take 1 tablet by mouth every six hours as needed for pain Tramadol 50 MG tablet Discontinued 50 mg PO EVERY 6 HOURS NEEDED as needed for Pain August 05, 2017 1:00am 2018 9:32am Problems Active Problems Problem Classification Problem Date Documented Da te Episodic/Chronic Abdominal hernia (1 source) Umbilical hernia; Translations: [Umbilical hernia without obstruction or gangrene] 04-17-2025 Episodic Asthma (20 sources) Exacerbation of asthma; Translations: [Unspecified asthma with (acute) exacerbation] Onset: Chronic Chronic ulcer of skin (4 sources) Non-pressure chronic ulcer of right calf with fat layer exposed; Translations: [Non-pressure chronic ulcer of left calf with fat layer exposed] Onset: 5 Chronic Contraceptive and procreative management (7 sources) Vasectomy status; Translations: [Vasectomy status] Onset: 5 Episodic Essential hypertension (20 sources) Essential hypertension; Translations: [Essential (primary) hypertension] Onset: 5 Chronic Immunizations and screening for infectious disease (9 sources) Contact with or exposure to other viral diseases; Translations: [Exposure to COVID-19 virus] 04-09-2021 Episodic Nonspecific chest pain (18 sources) Chest pain on exertion; Translations: [Chest pain, unspecified] 05-30-2019 Episodic Osteoarthritis (1 source) Unilateral primary osteoarthritis, right knee; Translations: [Unilateral primary osteoarthritis, right knee] Onset: 0 08-22-2019 Chronic Other and ill-defined heart disease (9 sources) Left ventricular systolic dysfunction; Translations: [Heart disease, unspecified] 05-30-2019 Chronic Other connective tissue disease (10 sources) Swelling of left lower limb; Translations: [Other specified soft tissue disorders] 08-03-2022 Episodic Other connective tissue disease (10 sources) Swelling of right lower limb; Translations: [Other specified soft tissue disorders] 08-03-2022 Episodic Other connective tissue disease (12 sources) Other specified soft tissue disorders; Translations: [Swelling of limb] Onset: 5 Episodic Other connective tissue disease (2 sources) Panniculitis, unspecified; Translations: [Panniculitis, unspecified] Onset: 5 Episodic Other diseases of veins and lymphatics (8 sources) Stasis dermatitis; Translations: [Venous insufficiency (chronic) (peripheral)] 08-03-2022 Episodic Other diseases of veins and lymphatics (10 sources) Peripheral venous insufficiency; Translations: [Venous insufficiency (chronic) (peripheral)] 08-03-2022 Episodic Other diseases of veins and lymphatics (12 sources) Venous insufficiency (chronic) (peripheral); Translations: [Varicose veins of lower extremities with inflammation] Onset: 5 Episodic Other diseases of veins and lymphatics (3 sources) Disorder of vein of lower extremity; Translations: [Venous insufficiency (chronic) (peripheral)] 08-03-2022 Episodic Other gastrointestinal disorders (2 sources) Personal history of other diseases of the digestive system; Translations: [Personal history of other diseases of the digestive system] Onset: 5 Episodic Other hematologic conditions (9 sources) Raised cardiac enzyme or marker; Translations: [Other specified abnormalities of plasma proteins] 04-27-2021 Episodic Other lower respiratory disease (9 sources) Dyspnea on exertion; Translations: [Other forms of dyspnea] 05-30-2019 Episodic Other lower respiratory disease (9 sources) Hypoxemia; Translations: [Hypoxemia] 04-27-2021 Episodic Other nutritional; endocrine; and metabolic disorders (9 sources) Obese class I; Translations: [Obesity, unspecified] 08-03-2022 Chronic Other nutritional; endocrine; and metabolic disorders (7 sources) Obesity, unspecified; Translations: [Obesity, unspecified] Onset: Chronic Other nutritional; endocrine; and metabolic disorders (2 sources) Body mass index 30+ - obesity; Translations: [Obesity, unspecified] 04-17-2025 Chronic Other skin disorders (2 sources) Hyperpigmentation of skin; Translations: [Disorder of pigmentation, unspecified] 04-17-2025 Episodic Other skin disorders (2 sources) Disorder of pigmentation, unspecified; Translations: [Disorder of pigmentation, unspecified] Onset: Episodic Pulmonary heart disease (13 sources) Pulmonary embolism; Translations: [Other pulmonary embolism without acute cor pulmonale] Onset: 5 07-01-2021 Episodic Residual codes; unclassified (10 sources) Edema of left lower leg; Translations: [Localized edema] 08-03-2022 Episodic Residual codes; unclassified (10 sources) Edema of right lower leg; Translations: [Localized edema] 08-03-2022 Episodic Residual codes; unclassified (9 sources) Edema of lower extremity; Translations: [Localized edema] 05-30-2019 Episodic Residual codes; unclassified (10 sources) History of operative procedure on elbow; Translations: [Other specified postprocedural states] 08-03-2022 Episodic Residual codes; unclassified (7 sources) Localized edema; Translations: [Edema] Onset: 5 Episodic Residual codes; unclassified (5 sources) Localized edema; Translations: [Edema] Episodic Residual codes; unclassified (12 sources) Other specified postprocedural states; Translations: [Personal history of surgery to other organs] Onset: 5 Episodic Residual codes; unclassified (7 sources) Acquired absence of other organs; Translations: [Other postprocedural status] Onset: 5 Episodic Respiratory failure; insufficiency; arrest (adult) (9 sources) Acute respiratory failure; Translations: [Acute respiratory failure with hypoxia] 04-27-2021 Episodic Thyroid disorders (2 sources) Hypothyroidism; Translations: [Hypothyroidism, unspecified] Onset: 4 04-17-2025 Chronic Varicose veins of lower extremity (20 sources) Lipodermatosclerosis; Translations: [Varicose veins of right lower extremity with inflammation] Episodic Viral infection (9 sources) COVID-19; Translations: [Pneumonia due to COVID-19 virus] 04-17-2021 Episodic Past or Other Problems Problem Classification Problem [...] Results Test Name Value Interpretation Reference Range Facility Venous Duplex US - [facility] 05-03-2025 Venous Duplex US - [facility] [address] [place] [address] Venous Duplex US - [facility] Extrem 05/03/25 0811 MR#: [id number] Acct: [id number] Name: ALISTAIR FUENTES II Rep #: [id number] : 1965 59 From: Randal Ford MD Attending Dr: Dr. Randal Ford MD Status: REG RCR Ordering Dr: Randal Ford MD Date: 05/03/25 Location: WC Sex: M C Admitted: Reason For Study Reason For Study: CVI RIGHT LEFT CFV is compressible, spontaneous, phasic, competent CFV is compressible, spontaneous, phasic, competent, and demonstrates normal augmentation. and demonstrates normal augmentation. FV is compressible, spontaneous, phasic, competent FV is compressible, spontaneous, phasic, competent and demonstrates normal augmentation. and demonstrates normal augmentation. POP V is compressible, spontaneous, phasic, competent POP V is compressible, spontaneous, phasic, competent and demonstrates normal augmentation. and demonstrates normal augmentation. T/P Trunk is compressible. T/P Trunk is compressible. PTV is compressible. PTV is compressible. RT PerV is compressible. LT PerV is compressible. Rt GastrocV is partially compressible with bright SFJ is competent and measures 0.61cm x 0.53 cm. intraluminal echoes consistent with chronic DVT GSV proximal thigh measures 0.42cm x 0.48 cm. Rt GSV is not visualized from SFJ to mid calf s/p GSV at knee measures 0.28cm x 0.26 cm. ablation GSV above knee is competent. Rt GSV is INCOMPETENT at mid and distal calf. GSV below knee is INCOMPETENT for greater than 0.5 SFJ is competent and measures 0.58 cm. seconds. SSV mid calf is competent and measures 0.32cm x 0.32 SSV mid calf is competent and measures 0.30cm x 0.32 cm. cm. Procedure This is a venous duplex using B-mode, color flow and spectral Doppler. Exam performed in department. Patient was scanned in reverse Trendelenburg position during reflux assessment. A preliminary report was called and/or faxed to Dr. Ford. VL/Venous Duplex US - [facility] Extrem Interpretation Summary Chronic venous changes are noted in the right gastrocnemius vein, which is partially compressible and demonstrates bright intraluminal echogenicity. The remainder of the right lower extremity deep venous system is patent and compressible. Deep veins of the left lower extremity are patent and compressible segmentally. There is no evidence of left lower extremity deep vein thrombosis. Valvular competence appears intact within the proximal deep venous systems bilaterally. Sapheno-femoral junctions are bilaterally competent . The right great saphenous vein is absent from the right sapheno-femoral junction to the mid-calf, consistent with a prior venous ablation procedure. The right great saphenous vein is patent and incompetent in the right mid- and distal calf. The left great saphenous vein is patent and competent above the knee. The left great saphenous vein is patent and incompetent below the knee. Small saphenous veins are patent and competent bilaterally. Ordering Physician: Randal Ford Referring Physician: Baudilio Ku Performed By: Yvonne Matson, AMI, RVT 05/03/251931 Date Randal Ford MD CC: Dr. Randal Ford MD; Dr. Baudilio Ku, Date Dictated: 05/03/25810 Date Transcribed: 05/03/251931 Decommissioning Well Site Manager: Signed Normal [facility] Venous duplex ultrasound rep ortOrdered By: Randal Ford on 05-03-2025 US Vein [facility] [address] [place] [address] Venous Duplex US - Tang Extrem 05/03/25810 MR#: [id number] Acct: [id number] Name: ALISTAIR FUENTES II Rep #:[id number] : 1965 59 From: Randal Ford MD Attending Dr: Dr. Randal Ford MD Status: REG RCR Ordering Dr: Randal Ford MD Date: 0 05/03/25 Location: Sex: M C Admitted: Reason For Study Reason For Study: CVI RIGHT LEFT CFV is compressible, spontaneous, phasic, competent CFV is compressible, spontaneous, phasic, competent, and demonstrates normal augmentation. and demonstrates normal augmentation. FV is compressible, spontaneous, phasic, competent FV is compressible, spontaneous, phasic, competent and demonstrates normal augmentation. and demonstrates normal augmentation. POP V is compressible, spontaneous, phasic, competent POP V is compressible, spontaneous, phasic, competent and demonstrates normal augmentation. and demonstrates normal augmentation. T/P Trunk is compressible. T/P Trunk is compressible. PTV is compressible. PTV is compressible. RT PerV is compressible. LT PerV is compressible. Rt GastrocV is partially compressible with bright SFJ is competent and measures 0.61cm x 0.53 cm. intraluminal echoes consistent with chronic DVT GSV proximal thigh measures 0.42cm x 0.48 cm. Rt GSV is not visualized from SFJ to mid calf s/p GSV at knee measures 0.28cm x 0.26 cm. ablation GSV above kneeis competent. Rt GSV is INCOMPETENT at mid and distal calf. GSV below kneeis INCOMPETENT for greater than 0.5 SFJ is competent and measures 0.58 cm. seconds. SSV mid calf is competent and measures 0.32cm x 0.32 SSV mid calf is competent and measures 0.30cm x 0.32 cm. cm. Procedure This is a venous duplex using B-mode, color flow and spectral Doppler. Exam performed in department. Patient was scanned in reverse Trendelenburg position during reflux assessment. A preliminary report was called and/or faxed to Dr. Ford. VL/Venous Duplex US - Tang Extrem Interpretation Summary Chronic venous changes are noted in the right gastrocnemius vein, which is partially compressible and demonstrates bright intraluminal echogenicity. The remainder of the right lower extremity deep venous system is patent and compressible. Deep veins of the left lower extremity are patent and compressiblesegmen tally. There is no evidence of left lower extremity deep vein thrombosis. Valvular competence appears intact within the proximal deep venous systems bilaterally. Sapheno-femoral junctions are bilaterally competent . The right great saphenous vein is absent from the right sapheno-femoral junction to the mid-calf, consistent with a prior venous ablation procedure. The right great saphenous vein is patent and incompetent in the right mid- and distal calf. The left great saphenous vein is patent and competent above the knee. The left great saphenous vein is patent and incompetent below the knee. Small saphenous veins are patent and competent bilaterally. Ordering Physician: Randal Ford Referring Physician: Baudilio Ku Performed By: Yvonne Matson, RDCS, RVT 05/03/251931 Date _ Randal Ford MD CC: Dr. Randal Ford MD; Dr. Baudilio Ku, ~ Date Dictated: 05/03/25810 Date Transcribed: 05/03/251931 Decommissioning Well Site Manager: Signed [facility] Work Phone: Wound Ctr History AND Physic janae 04-25-2025 Wound Ctr History & Physical [facility] [address] [place] [id number] H P Exam - Wound Care 04/25/25 1553 MR#: [id number] Acct: [id number] Name: ALISTAIR FUENTES II Rep #: [id number] : 1965 59 From: Randal Ford MD PCP: Dr. Baudilio Ku DO Status:[facility] Location: History of Present Illness Date of Service: 04/23/25 Chief Complaint: Venous stasis ulcerations of the right and left calves History of Wound: This is a 59-year-old male with a history of chronic venous insufficiency, venous hypertension with inflammation, and venous stasis ulcerations in his lower extremities. He presented with an ulceration on the lateral aspect of both the right and left calves. The ulceration on the right calf had been present for approximately 3 weeks. The ulceration on the left calf had been present for approximately 1 week. The patient had been treated at the [facility] in the past for lower extremity venous stasis ulcerations. He had also undergone a right lower extremity endovenous laser ablation procedure several years ago. The patient suffers from chronic swelling and edema in his lower extremities bilaterally. Graduated compression stockings have been previously prescribed, but the patient is unable to don the stockings due to his inability to bend over. The patient is also noted to have a history of pulmonary embolism. He sleeps on a flat mattress at night. The patient was referred by his primary care physician, Dr. Ku, who had recently treated the patient for bilateral lower extremity cellulitis. He had been using antibiotic ointment topically to the ulcerations in his lower extremities. The patient recently completed a 7-day course of cephalexin 500 mg p.o. every 6 hours for a total of 7 days. The patient is mildly obese. He is not diabetic. [facility] Medical History (Updated 04/25/25 @ 16:[address] 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 History of pulmonary embolism Hyperpigmentation Obesity (BMI 30-39.9) Obesity (BMI 30.0-34.9) Venous stasis ulcer Venous stasis dermatitis of right lower extremity Hypertension Lipodermatoscleros is of right lower extremity Chronic venous insufficiency Edema of left lower leg Edema of right lower leg Swelling of left lower extremity Swelling of right lower extremity Traumatic injury of right lower extremity (07/2017) Umbilical hernia GERD (gastroesophageal reflux disease) Asthma Hypothyroidism Essential (primary) hypertension Left ventricular systolic dysfunction Home Medications ???Medication ???Instructions ???Recorded ???Last Taken ???Type amlodipine 10 mg tablet 10 mg PO DAILY 08/05/17 Unknown Hi story carvedilol 25 mg tablet 25 mg PO BID 08/05/17 Unknown Hist ory losartan 100 mg tablet 100 mg PO DAILY 08/05/17 Unknown H istory montelukast 10 mg tablet 10 mg PO DAILY 08/05/17 Unknown Hi story albuterol sulfate 90 mcg/actuation 2 puff inhalation Q4H PRN PRN So b 05/30/19 Unknown History aerosol inhaler /Or Wheezing hydrochlorothiazid e 25 mg tablet 25 mg PO DAILY #90 tabs 07/20/19 U nknown Rx fluticasone fur. 200 mcg-umeclid 1 inh inhalation DAILY 04/17/21 Un known History 62.5 mcg-vilant 25 mcg inhalat.powder (Trelegy Ellipta) furosemide 20 mg tablet 40 mg PO DAILY 08/03/22 Unknown Hi story potassium chloride 20 mEq 20 meq PO DAILY 08/03/22 Unknown H istory tablet,extended release Allergy/AdvReac Type Severity Reaction Status Date / Time No Known Allergies Allergy Verified 04/14/23 10:25 Family History Mother Heart disease CAD (coronary artery disease) Lung cancer Grandmother Heart disease Sister Thyroid cancer Father Stomach cancer Other Cancer Surgical History History of tonsillectomy History of elbow surgery History of vasectomy History of left inguinal hernia repair History of elbow surgery H/O vasectomy History of tonsillectomy H/O left inguinal hernia repair Social History household members: spouse Smoking Status: Never smoker second hand exposure: No alcohol intake: current alcohol intake frequency: 3 or more drinks per day Alcohol type: beer details: beer substance use type: does not use meliza/anabaptism: None seatbelt use: always do you feel safe at home: Yes Vital Signs Vital Signs Vital Signs: Weight Weight: 266 lb Body Mass Index (BMI) 37.0 Physical Exam Const alert, oriented x3, no apparent distress, no limitations, healthy appearing and well nourished Constitutional Narrative: The patient is mildly ob (more content not included)... Normal [facility] History AND Physic janae 04-17-2025 Wound Ctr History & Physical [facility] [address] [place] [id number] H P Exam - Wound Care 04/17/25 1535 MR#: [id number] Acct: [id number] Name: ALISTAIR FUENTES II Rep #: [id number] : 1965 59 From: Randal Ford MD PCP: Dr. Baudilio Ku, DO Status:REG RCR Location: History of Present Illness Date of Service: 04/16/25 Chief Complaint: Venous stasis ulcerations of the right and left calves History of Wound: This is a 59-year-old male with a history of chronic venous insufficiency, venous hypertension with inflammation, and venous stasis ulcerations in his lower extremities. He presented with an ulceration on the lateral aspect of both the right and left calves. The ulceration on the right calf had been present for approximately 3 weeks. The ulceration on the left calf has been present for approximately 1 week. The patient has been treated at the [facility] in the past for lower extremity venous stasis ulcerations. He has also undergone a right lower extremity endovenous laser ablation procedure several years ago. The patient suffers from chronic swelling and edema in his lower extremities bilaterally. Graduated compression stockings have been previously prescribed, but the patient is unable to don the stockings due to his inability to bend over. The patient is also noted to have a history of pulmonary embolism. He sleeps on a flat mattress at night. The patient has been referred by his primary care physician, Dr. Ku, who has recently treated the patient for bilateral lower extremity cellulitis. He had been using antibiotic ointment topically to the ulcerations in his lower extremities. The patient has completed a 7-day course of cephalexin 500 mg p.o. every 6 hours for a total of 7 days. The patient is mildly obese. He is not diabetic. 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 History of pulmonary embolism Hyperpigmentation Obesity (BMI 30-39.9) Obesity (BMI 30.0-34.9) Venous stasis ulcer Venous stasis dermatitis of right lower extremity Hypertension Lipodermatoscleros is of right lower extremity Chronic venous insufficiency Edema of left lower leg Edema of right lower leg Swelling of left lower extremity Swelling of right lower extremity Traumatic injury of right lower extremity (07/2017) Umbilical hernia GERD (gastroesophageal reflux disease) Asthma Hypothyroidism Essential (primary) hypertension Left ventricular systolic dysfunction Home Medications ???Medication ???Instructions ???Recorded ???Last Taken ???Type amlodipine 10 mg tablet 10 mg PO DAILY 08/05/17 Unknown Hi story carvedilol 25 mg tablet 25 mg PO BID 08/05/17 Unknown Hist ory losartan 100 mg tablet 100 mg PO DAILY 08/05/17 Unknown H istory montelukast 10 mg tablet 10 mg PO DAILY 08/05/17 Unknown Hi story albuterol sulfate 90 mcg/actuation 2 puff inhalation Q4H PRN PRN So b 05/30/19 Unknown History aerosol inhaler /Or Wheezing hydrochlorothiazid e 25 mg tablet 25 mg PO DAILY #90 tabs 07/20/19 U nknown Rx fluticasone fur. 200 mcg-umeclid 1 inh inhalation DAILY 04/17/21 Un known History 62.5 mcg-vilant 25 mcg inhalat.powder (Trelegy Ellipta) furosemide 20 mg tablet 40 mg PO DAILY 08/03/22 Unknown Hi story potassium chloride 20 mEq 20 meq PO DAILY 08/03/22 Unknown H istory tablet,extended release Allergy/AdvReac Type Severity Reaction Status Date / Time No Known Allergies Allergy Verified 04/14/23 10:25 Family History Mother Heart disease CAD (coronary artery disease) Lung cancer Grandmother Heart disease Sister Thyroid cancer Father Stomach cancer Other Cancer Surgical History History of tonsillectomy History of elbow surgery History of vasectomy History of left inguinal hernia repair History of elbow surgery H/O vasectomy History of tonsillectomy H/O left inguinal hernia repair Social History household members: spouse Smoking Status: Never smoker second hand exposure: No alcohol intake: current alcohol intake frequency: 3 or more drinks per day Alcohol type: beer details: beer substance use type: does not use meliza/anabaptism: None seatbelt use: always do you feel safe at home: Yes Vital Signs Vital Signs Vital Signs: Weight Weight: 266 lb Body Mass Index (BMI) 37.0 Physical Exam Const alert, oriented x3, no apparent distress, no limitations, healthy appearing and well nourished Constitutional Narrative: The patient is mildly obese, with a BMI of 37.1. General Appearan (more content not included)... Normal [facility] T4 Free Directon 05-29-2024 T4 FREE DIRECT 0.82 ng/dL Normal 0.76-1.46 [facility] Comment on above: Performed By: #### L [id number], [id number] #### [facility] [address] [place], [place], [address] Thyroid Stim Hormone (TSH)on 05-29-2024 TSH 3.350 uIU/mL Normal 0.358-3.740 [facility] Comment on above: Performed By: #### L [id number], [id number] #### [facility] [address] [place], [place], [id number] Absolute lymphocyte countOrd ered By: JENNI MOONEY on 11-23-2022 Lymphocytes Auto (Unsp spec) [#/Vol] 1.22 10*3/uL 0.83-4.51 [facility] Basophil percentageOrdered B y: JENNI MOONEY on 11-23-2022 Basophils/100 WBC (Bld) 0.7 % 0-1 [facility] Bilirubin [Mass/Vol] 0.70 mg/dL 0.20-1.00 [facility] Comment on above: For patients on eltr ombopag therapy, use of Dimension [place] TBIL is not recommended. Chloride [Moles/Vol] 102 mmol/L 98-107 [facility] Eosinophils/100 WBC (Bld) 6.2 % 0-5 [facility] Glucose [Mass/Vol] 106 mg/dL 74-106 [facility] Comment on above: Fasting Glucose resu lt from 100 to 125 mg/dL suggests IMPAIRED HOMEOSTASIS per A.D.A. criteria. Neutrophils (Bld) [#/Vol] 4.3 10*3/uL 2.0-7.7 [facility] Neutrophils/100 WBC (Bld) 63.6 % 47-70 [facility] Potassium [Moles/Vol] 3.6 mmol/L 3.5-5.1 [facility] Protein [Mass/Vol] 8.0 g/dL 6.4-8.2 [facility] Sodium [Moles/Vol] 136 mmol/L 136-145 [facility] WBC (Bld) [#/Vol] 6.8 10*3/uL 4.4-11.0 [facility] Blood erythrocytes count (nu mber/volume)Ordered By: JENNI MOONEY on 11-23-2022 RBC (Bld) [#/Vol] 4.80 10*6/uL 4.6-6.[address] [facility] Blood hemoglobin measurement (mass/volume)Ordered By: JENNI MOONEY on 11-23-2022 Hemoglobin (Bld) [Mass/Vol] 16.0 g/dL 13.0-16.5 [facility] Blood lymphocytes/100 leukoc ytesOrdered By: JENNI MOONEY on 11-23-2022 Lymphocytes/100 WBC (Bld) 18.0 % 19-41 [facility] Blood monocytes/100 leukocyt esOrdered By: JENNI MOONEY on 11-23-2022 Monocytes/100 WBC (Bld) 10.6 % 0-10 [facility] Blood platelet mean volumeOr dered By: JENNI MOONEY on 11-23-2022 Platelet mean volume (Bld) [Entitic vol] 9.8 fL 6.2-12.0 [facility] Determination of erythrocyte mean corpuscular volume (MCV)Ordered By: JENNI MOONEY on 11-23-2022 MCV (RBC) [Entitic vol] 99.0 fL 80-94 [facility] Hematocrit Auto (Bld) [Volum e fraction]Ordered By: JENNI MOONEY on 11-23-2022 Hematocrit (Bld) [Volume fraction] 47.5 % 40-54 [facility] - Chemistry and C hemistry - challengeOrdered By: JENNI MOONEY on 11-23-2022 ALP [Catalytic activity/Vol] 96 U/L 45-117 [facility] ALT [Catalytic activity/Vol] 97 U/L 16-61 [facility] CO2 [Moles/Vol] 27.0 mmol/L 21.0-32.0 [facility] Globulin (S) [Mass/Vol] 4.2 g/dL 2.2-4.2 [facility] Urea nitrogen/Creatinine [Mass ratio] 12.8 mg/mg 10-20 [facility] - Hematology and Cell countsOrdered By: JENNI MOONEY on 11-23-2022 Erythrocyte distribution width (RBC) [Entitic vol] 43.7 fL 35.1-43.9 [facility] Erythrocyte distribution width (RBC) [Ratio] 11.9 % 11.6-14.6 [facility] Immature granulocytes/100 WBC (Bld) 0.900 % 0.0-0.9 [facility] Comment on above: IG% - Immature Granu locytes (promyelocytes, myelocytes and metamyelocytes) > 1% indicates that a LEFT SHIFT is Present. MCH (RBC) [Entitic mass] 33.3 pg 27.0-32.0 [facility] Nucleated RBC/100 WBC (Bld) [Ratio] 0 % 0-5 [facility] MCHC Auto (RBC) [Mass/Vol]Or dered By: JENNI MOONEY on 11-23-2022 MCHC (RBC) [Mass/Vol] 33.7 g/dL 32-36 [facility] No Panel InformationOrdered By: JENNI MOONEY on 11-23-2022 Estimated GFR (MDRD) Amer 131 mL/min >60 [facility] Comment on above: GFR Calc Estimated GFR (MDRD) Non-Af Amer 108 mL/min >60 [facility] Comment on above: Non- GFR Calc Immunoglobulin E 312 IU/mL 6-495 [facility] Comment on above: Performed at: [employer] - [address] [id number] Director: Rafa Hassan MD, Phone: [phone] Miscellaneous Test See comment [facility] Comment on above: TEST RESULTS LIMITSA hqxh-5-Gtzahhqpdic JnsboxvtvSorhp-6-Jjkjkzwgnfb, Serum 151 mg/dL 101-187Phenotype (PI) MM Phenotype Population A-1-AT Concentration* Incidence % % of MM (Typical Range) MM 86.5% 100% (96 - 189) MS 8.0% 86% (83 - 161) MZ 3.9% 61% (60 - 111) FM 0.4% 100% (93 - 191) SZ 0.3% 41% (42 - 75) SS 0.1% 64% (62 - 119) ZZ 0.05% 19% (16 - 38) FS 0.05% 70% (70 - 128) FZ Unknown 46% (44 - 88) FF Unknown Unknown *A-1-AT concentration in the homozygous MM phenotype is taken as the reference normal. Percent deficiency in each phenotype is reported relative to this reference. Ranges used to confirm phenotype. TESTING PERFORMED AT [facility]. ORIGINAL REPORT ON FILE IN LAB CONTAINS ADDITIONAL TEST SITE INFORMATION. Platelets bldOrdered By: HUSAM MOONEY on 11-23-2022 Platelets (Bld) [#/Vol] 224 10*3/uL 150-450 [facility] Serum svqpi-5-atiyhmputcs me asurementOrdered By: JENNI MOONEY on 11-23-2022 Alpha 1 antitrypsin [Mass/Vol] 146 mg/dL 101-187 [facility] Comment on above: Performed at: [address] [id number] Director: Gerardo Meyer PhD, Phone: [phone] Serum or plasma albumin miguelangel urement (mass/volume)Ordered By: JENNI MOONEY on 11-23-2022 Albumin [Mass/Vol] 3.8 g/dL 3.2-5.0 [facility] Serum or plasma albumin/glob ulin mass ratioOrdered By: JENNI MOONEY on 11-23-2022 Albumin/Globulin [Mass ratio] 0.9 {ratio} 0.9-2.4 [facility] Serum or plasma calcium miguelangel urement (mass/volume)Ordered By: JENNI MOONEY on 11-23-2022 Calcium [Mass/Vol] 9.2 mg/dL 8.5-10.1 [facility] Serum or plasma creatinine m easurement (mass/volume)Ordered By: JENNI MOONEY on 11-23-2022 Creatinine [Mass/Vol] 0.78 mg/dL 0.70-1.30 [facility] Comment on above: The validity of the calculated GFR & GFRAA in patients over 70 years has not been determined. Clinical correlation is essential. Serum or plasma urea nitroge n measurement (mass/volume)Ordered By: JENNI MOONEY on 11-23-2022 Urea nitrogen [Mass/Vol] 10 mg/dL 03-01 [facility] Thin prep Papanicolaou smear with manual screeningOrdered By: JENNI MOONEY on 11-23-2022 Thin prep Papanicolaou smear with manual screening 64 U/L [facility] Thin prep Papanicolaou smear with manual screening 7 12-27 [facility] Clinical Summary: HMSPatient IDon 08-22-[address] [facility] Work Phone: Office Visit: New - visi t with practice, Rm: 2on 08-22-2019 NEGATED: Highlighted rowTobacco smoking status NHIS Tobacco smoking status NHIS [facility] Work Phone: Vital Signs Date Time Vital Sign Value Performing Clinician Facility 04-23-2025 08:08-0400 Body mass index (BMI) [Ratio] 37 kg/m2 Dr. Baudilio Ku DO Work Phone: [facility] 04-23-2025 08:08-0400 Body temperature 97.3 [degF] Dr. Baudilio Ku DO Work Phone: [facility] 04-23-2025 08:08-0400 Diastolic blood pressure 115 mm[Hg] Dr. Baudilio Ku DO Work Phone: [facility] 04-23-2025 08:08-0400 Heart rate 97 /min Dr. Baudilio Ku DO Work Phone: [facility] 04-23-2025 08:08-0400 Respiratory rate 18 /min Dr. Baudilio Ku DO Work Phone: [facility] 04-23-2025 08:08-0400 Systolic blood pressure 195 mm[Hg] Dr. Baudilio Ku DO Work Phone: [facility] 04-16-2025 08:22-0400 Body height 180.[address] Baudilio Ku DO Work Phone: [facility] 04-16-2025 08:22-0400 Body weight 120.[address] Baudilio Ku DO Work Phone: [facility] 04-14-2023 10:21-0400 Body height 180.34 cm [facility] 04-14-2023 10:21-0400 Body temperature 97.5 [degF] [facility] 04-14-2023 10:21-0400 Diastolic blood pressure 88 mm[Hg] [facility] 04-14-2023 10:21-0400 Heart rate 83 /min [facility] 04-14-2023 10:21-0400 Respiratory rate 16 /min [facility] 04-14-2023 10:21-0400 SaO2% (BldA) [Mass fraction] 94 % [facility] 04-14-2023 10:21-0400 Systolic blood pressure 137 mm[Hg] [facility] 04-01-2023 09:54-0400 Body height 180.34 cm [facility] 04-01-2023 09:54-0400 Body mass index (BMI) [Ratio] 36.2 kg/m2 [facility] 04-01-2023 09:54-0400 Body temperature 97.8 [degF] [facility] 04-01-2023 09:54-0400 Body weight 117.93 kg [facility] 04-01-2023 09:54-0400 Diastolic blood pressure 87 mm[Hg] [facility] 04-01-2023 09:54-0400 Heart rate 94 /min [facility] 04-01-2023 09:54-0400 Respiratory rate 16 /min [facility] 04-01-2023 09:54-0400 SaO2% (BldA) [Mass fraction] 94 % [facility] 04-01-2023 09:54-0400 Systolic blood pressure 148 mm[Hg] [facility] 03-18-2023 12:53-0400 Body temperature 98.1 [degF] [facility] 03-18-2023 12:53-0400 Diastolic blood pressure 81 mm[Hg] [facility] 03-18-2023 12:53-0400 Heart rate 85 /min [facility] 03-18-2023 12:53-0400 Respiratory rate 16 /min [facility] 03-18-2023 12:53-0400 SaO2% (BldA) [Mass fraction] 93 % [facility] 03-18-2023 12:53-0400 Systolic blood pressure 147 mm[Hg] [facility] 03-18-2023 10:40-0400 Body height 180.34 cm [facility] 03-18-2023 10:40-0400 Body mass index (BMI) [Ratio] 36.2 kg/m2 [facility] 03-18-2023 10:40-0400 Body weight 117.93 kg [facility] 08-17-2022 10:01-0500 Body mass index (BMI) [Ratio] 34.8 kg/m2 [facility] 08-17-2022 10:01-0500 Body temperature 97.2 [degF] [facility] 08-17-2022 10:01-0500 Diastolic blood pressure 93 mm[Hg] [facility] 08-17-2022 10:01-0500 Heart rate 88 /min [facility] 08-17-2022 10:01-0500 Systolic blood pressure 148 mm[Hg] [facility] 08-15-2022 00:39-0500 Body weight 113.39 kg [facility] 08-15-2022 00:39-0500 Respiratory rate 18 /min [facility] 08-03-2022 10:28-0500 Body height 180.34 cm [facility] 08-03-2022 10:28-0500 Body mass index (BMI) [Ratio] 34.8 kg/m2 [facility] 08-03-2022 10:28-0500 Body temperature 97.4 [degF] [facility] 08-03-2022 10:28-0500 Body weight 113.39 kg [facility] 08-03-2022 10:28-0500 Diastolic blood pressure 104 mm[Hg] [facility] 08-03-2022 10:28-0500 Heart rate 76 /min [facility] 08-03-2022 10:28-0500 Respiratory rate 18 /min [facility] 08-03-2022 10:28-0500 Systolic blood pressure 163 mm[Hg] [facility] NEGATED: Highlighted [id number] 14:01-0500 BMI (Body Mass Index) 33.45 kg/m2 Donaldo Godinez LPN [facility] [place] [facility] Work Phone: NEGATED: Highlighted [id number] 14:01-0500 Body weight 108.41 kg Donaldo Godinez LPN [facility] [place] [facility] Work Phone: NEGATED: Highlighted [id number] 14:01-0500 Body weight 109 kg Donaldo Godinez LPN [facility] Work Phone: NEGATED: Highlighted [id number] 14:01-0500 BP Diastolic 95 mm[Hg] Donaldo Godinez LPN [facility] [place] [facility] Work Phone: NEGATED: Highlighted [id number] 14:01-0500 BP Diastolic 94 mm[Hg] Donaldo Godinez LPN [facility] [place] [facility] Work Phone: NEGATED: Highlighted [id number] 14:01-0500 BP Systolic 156 mm[Hg] Donaldo Godinez LPN [facility] [place] [facility] Work Phone: NEGATED: Highlighted [id number] 14:01-0500 BP Systolic 154 mm[Hg] Donaldo Godinez LPN [facility] [place] [facility] Work Phone: NEGATED: Highlighted [id number] 14:01-0500 Heart rate 2+ Donaldo Godinez LPN [facility] [place] [facility] Work Phone: NEGATED: Highlighted [id number] 14:01-0500 Height 180.34 cm Donaldo Godinez LPN [facility] Work Phone: NEGATED: Highlighted [id number] 14:01-0500 Height 180 cm Donaldo Godinez ALEIDA [facility] Work Phone: NEGATED: Highlighted [id number] 14:01-0500 Pulse (Heart Rate) 76 /min Donaldo Godinez ALEIDA [facility] Work Phone: Encounters Encounter Date Encounter Type Care Provider Facility Start: 05-25-2025 ambulatory Randal Ford Facility: [facility] Start: 05-03-2025 End: 05-14-[address] Baudilio Ku DO Work Phone: [facility] [place] Start: 05-03-2025 End: 05-14-[address] Randal Ford MD -[facility] Work Phone: Start: 04-23-2025 Non-patient / Non-visit Dr. Randal Ford MD -[facility] Start: 04-16-2025 Non-patient / Non-visit Dr. Randal Ford MD -[facility] Start: 05-29-2024 End: 05-29-2024 ambulatory Baudilio Ku Facility:[facility] Start: 08-23-2023 End: 08-23-2023 ambulatory [facility] Work Phone: Start: 08-23-2023 End: 08-23-2023 Patient encounter procedure [facility], [facility] Work Phone: Start: 06-10-2023 End: 06-10-2023 ambulatory [facility] Work Phone: Start: 06-10-2023 End: 06-10-2023 Patient encounter procedure [facility] Work Phone: Start: 04-14-2023 End: 04-14-2023 ambulatory [facility] Work Phone: Start: 04-14-2023 End: 04-14-2023 Patient encounter procedure [facility] Work Phone: Start: 04-01-2023 End: 04-01-2023 ambulatory [facility] Work Phone: Start: 04-01-2023 End: 04-01-2023 Patient encounter procedure [facility] Work Phone: Start: 03-18-2023 End: 03-18-2023 ambulatory [facility] Work Phone: Start: 03-18-2023 End: 03-18-2023 Patient encounter procedure [facility] Work Phone: Start: 11-23-2022 End: 11-23-2022 ambulatory [facility] Work Phone: Start: 11-23-2022 End: 11-23-2022 Patient encounter procedure [facility] Start: 08-17-2022 End: 08-18-2022 ambulatory [facility] Work Phone: Start: 08-17-2022 End: 08-18-2022 [facility] Start: 08-03-2022 End: 08-14-2022 ambulatory [facility] Work Phone: Start: 08-03-2022 End: 08-14-2022 Discharged Recurring [facility] Start: 08-22-2019 End: 08-22-2019 Patient encounter procedure Abner Blair MD Work Phone: [facility] Work Phone: Procedures Date Procedure Procedure Detail Performing Clinician Start: 08-23-2023 Plain chest X-ray Start: 11-23-2022 Plain chest X-ray Start: 08-22-2019 End: 08-22-2019 Arthrocentesis aspir&/inj major [...] Start: 08-22-2019 End: 08-22-2019 Osteoarthritis assess Abner Blair MD Work Phone: Start: 08-22-2019 End: 08-22-2019 Pain assessment documented as positive - follow-up documented Abner Blair MD Work Phone: Start: 08-22-2019 End: 08-22-2019 Tobacco non-user Abner Blair MD Work Phone: H/O: vasectomy History of vasectomy H/O: vasectomy History of vasectomy Dr. Ashley Ford MD History of repair of inguinal hernia History of left inguinal hernia repair History of repair of inguinal hernia History of left inguinal hernia repair Dr. Randal Ford MD History of tonsillectomy History of tonsillectomy History of tonsillectomy History of tonsillectomy Dr. Randal Ford MD NEGATED: Highlighted rowStart: 08-22-2019 End: 08-22-2019 Documentation of current medications Donaldo Godinez LPN Plan of Treatment Date Care Activity Detail Author Start: 08-22-2019 End: 08-22-2019 Appointment Appointment [facility] Work Phone: Start: 08-22-2019 End: 08-22-2019 Radiologic examination knee 3 views [id number] [facility] Work Phone: Patient Education \cps-[email or web address]\CPS_ PtEducati on\htn.pdf [facility] Work Phone: Payers Date Payer Category Payer Unknown [id number] 2024 Self-pay [id number] 2024 Unknown [id number] Unknown [id number] Unknown [id number] Unknown [id number] Social History Date Type Detail Facility Start: 08-03-2022 End: 08-03-2022 Tobacco smoking status TXIS Unknown if ever smoked [facility] Start: 05-30-2019 None [facility] Start: 1965 Sex Assigned At Male [facility] Start: 04-16-2025 Tobacco smoking status NHIS Never smoked tobacco (finding) [facility] Sex Male [facility] NEGATED: Highlighted rowStart: 08-22-2019 End: 08-22-2019 Alcohol use Alcohol use [facility] Work Phone: NEGATED: Highlighted rowStart: 08-22-2019 End: 08-22-2019 Details of drug misuse behavior Details of drug misuse behavior [facility] Work Phone: NEGATED: Highlighted rowStart: 08-22-2019 End: 08-22-2019 Assertion Never smoker [facility] Work Phone: Mental Status Date Assessment Result Facility 04-14-2023 Cognitive function Voice/Name [facility] Work Phone: 04-01-2023 Cognitive function Voice/Name [facility] Work Phone: 03-18-2023 Cognitive function Voice/Name [facility] Work Phone: Evaluation note 05-03-2025 Note Date & Type Note Facility 05-03-2025 Evaluation note Diagnosis Onset Date Resolution Edema of left lower leg acute S eptember 2024 8:00am Edema of right lower leg acute May 03, 2025 8:00am History of elbow surgery acute May 03, 2025 8:00am History of left inguinal hernia repair acute May 03, 2025 8:00am History of pulmonary embolism acute May 03, 2025 8:00am History of tonsillectomy acute May 03, 2025 8:00am History of vasectomy acute Apr ember 2024 8:00am Hyperpigmentation acute Septemb er 2024 8:00am Lipodermatosclerosis of both lower extremities acute May 03, 2025 8:00am Obesity (BMI 30-39.9) acute Sep tember 2024 8:00am Swelling of left lower extremity acute May 03, 2025 8:00am Swelling of right lower extremity acute May 03, 2025 8:00am Venous stasis dermatitis of right lower extremity acute May 03, 2025 8:00am Venous stasis ulcer acute 2024 8:00am Asthma chronic April 8:00am Chronic venous insufficiency chronic May 03, 2025 8:00am Essential (primary) hypertension chronic May 03, 2025 8:00am [facility] Work Phone: History and physical note 04-25-2025 Note Date & Type Note Facility 04-25-2025 History and physi yamel note Note Date/Time April 25, 2025 4:11pm [facility] [address] [place] [id number] H&P Exam - Wound Care 04/25/25 1553 MR#: [id number] Acct: [id number] Name: ALISTAIR FUENTES II Rep #:[id number] : 1965 59 From: Randal Rodriguez PCP: Dr. Baudilio Ku, DO Status:REG R Location: History of Present Illness Date of Service: 04/23/25 Chief Complaint: Venous stasis ulcerations of the right and left calves History of Wound: This is a 59-year-old male with a history of chronic venous insufficiency, venous hypertension with inflammation, and venous stasis ulcerations in his lower extremities. He presented with an ulceration on the lateral aspect of both the right and left calves. The ulceration on the right calf had been present for approximately 3 weeks. The ulceration on the left calf had been present for approximately 1 week. The patient had been treated at the [facility] in the past for lower extremity venous stasis ulcerations. He had also undergone a right lower extremity endovenous laser ablation procedure several years ago. The patient suffers fromchronic swelling and edema in his lower extremities bilaterally. Graduated compression stockings have been previously prescribed, but the patient is unableto don the stockings due to his inability to bend over. The patient is also noted to have a history of pulmonary embolism. He sleeps on a flat mattress at night. The patient was referred by his primary care physician, Dr. Ku, who had recently treated the patient for bilateral lower extremity cellulitis. He had been using antibiotic ointment topically to the ulcerations in his lower extremities. The patient recently completed a 7-day course of cephalexin 500 mgp.o. every 6 hours for a total of 7 days. The patient is mildly obese. He is not diabetic. [facility] Medical History (Updated 04/25/25 @ 16:[address] Randal Ford MD) Venous stasis dermatitis of right lower extremity Venous stasis ulcer Lipodermatosclerosis of both lower extremities History of pulmonary embolism Hyperpigmentation Obesity (BMI 30-39.9) Obesity (BMI 30.0-34.9) Venous stasis ulcer Venous stasis dermatitis of right lower extremity Hypertension Lipodermatosclerosis of right lower extremity Chronic venous insufficiency Edema of left lower leg Edema of right lower leg Swelling of left lower extremity Swelling of right lower extremity Traumatic injury of right lower extremity (07/2017) Umbilical hernia GERD (gastroesophageal reflux disease) Asthma Hypothyroidism Essential (primary) hypertension Left ventricular systolic dysfunction Home Medications ?Medication ?Instructions ?Recorded ?Last Taken ?Type amlodipine 10 mg tablet 10 mg PO DAILY 08/05/17 Unkn own History carvedilol 25 mg tablet 25 mg PO BID 08/05/17 Unknow n History losartan 100 mg tablet 100 mg PO DAILY 08/05/17 Unk nown History montelukast 10 mg tablet 10 mg PO DAILY 08/05/17 Unkn own History albuterol sulfate 90 mcg/actuation 2 puff inhalation Q 4H PRN PRN Sob 05/30/19 Unknown History aerosol inhaler &/Or Wheezing hydrochlorothiazide 25 mg tablet 25 mg PO DAILY #90 ta bs 07/20/19 Unknown Rx fluticasone fur. 200 mcg-umeclid 1 inh inhalation JILLIAN Y 04/17/21 Unknown History 62.5 mcg-vilant 25 mcg inhalat.powder (Trelegy Ellipta) furosemide 20 mg tablet 40 mg PO DAILY 08/03/22 Unkn own History potassium chloride 20 mEq 20 meq PO DAILY 08/03/22 Unk nown History tablet,extended release Allergy/AdvReac Type Severity Reaction Status Date / Time No Known Allergies Allergy Verified 04/14/23 10:25 Family History Mother Heart disease CAD (coronary artery disease) Lung cancer Grandmother Heart disease Sister Thyroid cancer Father Stomach cancer Other Cancer Surgical History History of tonsillectomy History of elbow surgery History of vasectomy History of left inguinal hernia repair History of elbow surgery H/O vasectomy History of tonsillectomy H/O left inguinal hernia repair Social History household members: spouse Smoking Status: Never smoker second hand exposure: No alcohol intake: current alcohol intake frequency: 3 or more drinks per day Alcohol type: beer details: beer substance use type: does not use meliza/anabaptism: None seatbelt use: always do you feel safe at home: Yes Vital Signs Vital Signs Vital Signs: Weight Weight: 266 lb Body Mass Index (BMI) 37.0 Physical Exam Const alert, oriented x3, no apparent distress, no limitations, healthy appearing and well nourished Constitutional Narrative: The patient is mildly obese, with a BMI of 37.1. General Appearance: cooperative, comfortable, well kempt and well developed Orientation / Consciousness: awake, oriented to person, oriented to place and oriented to time Exam Limitations: no limitations HEENT normocephalic and head/scalp atraumatic Head and Scalp: normal to inspection, normocephalic and atraumatic Face and Sinus: normal facial exam Nose: external nose normal External Ear: external ears normal Eyes EOMs intact bilaterally General Eye: normal appearance of both eyes Neck full ROM Resp normal respiratory effort, normal air movement, no retractions and no use of accessory muscles Effort and Inspection: able to speak in complete sentences Extremity no calf tenderness General Extremity: Negative for clubbing or cyanosis Skin Wound Narrative: Moderate swelling and edema are noted in the patient's lower extremities bilaterally. Hemosiderin staining and hyperpigmentation are noted in the gaiterareas bilaterally. An ulceration is noted on the distal right lateral calf. Dimensions are documented elsewhere. The ulceration is full-thickness, extending through all layers of the dermis and into the subcutaneous tissues. Ulcer margins are well beveled. There is an ulceration on the left mid lateral calf. Dimensions are documented elsewhere. The ulceration is full-thickness, extending through all layers of the dermis and into the subcutaneous tissues. Ulcer margins are well beveled. There is no sign of infection or cellulitis at either ulceration site. There is a moderate amount of bioburden and slough at each site. Dry, scaly venous stasis dermatitis is noted in the right gaiter area. Neuro oriented x3, CN's II-XII intact bilaterally, moves all extremities, no focal motor deficits and no sensory deficits noted Sensorium / Orientation: awake, alert, oriented to person, oriented to place andoriented to time Speech: speech normal Psych Appearance: grossly normal and appropriate Attitude: calm Activity / Motor Behavior: appropriate eye contact Speech: normal speech Mood & Affect: euthymic mood Thought Process: normal thought process Thought Content: normal thought content Attention / Concentration: attention grossly intact Debridement Note Debridement Note Wound debrided: Right lateral calf venous stasis ulceration Laterality: Right Type of Debridement: Excisional debridement Anesthesia Used: 5% Lidocaine Gel Depth: Down to and including healthy tissue and in the subcutaneous layer Percentage of wound debrided: 100 Instrument Used: 5mm curette Tissue Removed: Bioburden and slough Severity: Fat Layer Exposed Amount of bleeding with debridement: Mild Bleeding Controlled with: Compression and gauze Patient tolerated procedure: Patient tolerated procedure well Post-Debridement Measurements and Additional Note: Post-Debridement Measurements/Treatment PAULA - Nurse 1 - General Ulcer Assessment Start: 04/16/25 08:22 Freq: Status: Active Protocol: AMANDA Activity Type Activity Date Activity User E-sign Co-sign Detail Recorded Client Recorded Date Recorded By Document 04/16/25 08:22 SHANNA [id number] 04/16/25 08:27 JF Document 04/23/25 08:08 KW [id number] 04/23/25 08:16 KW 04/16/25 04/23/25 08:22 08:08 WC - Today's Visit Information Type of service Follow-up Visit Follow-up Visit (Physician/RECEIVER BULK SYSTEM (Physician/RECEIVER BULK SYSTEM ) ) Arrival Mode Ambulatory Ambulatory Patient Identification Verified (Name & Yes Yes ) Patient Requires Transmission-Based No Precautions Height and Weight Height 5 ft 11 in Weight 266 lb Weight in Pounds 266.0 lbs Body Mass Index (BMI) 37.0 37.0 BMI Classification Obese Obese Vital Signs Temperature (97.8 F-99.1 F) 97.5 F L 97.3 F L Temperature Source Temporal Temporal Pulse Rate (60-100) 100 97 Pulse Location Monitor Monitor Respiratory Rate (12-18) 16 18 Respiratory rate source Observation Observation Oxygen Delivery Method Room Air Blood Pressure (90/60-120/80) 109/72 195/115 H Blood Pressure Mean 84 141 Source Monitor Monitor Position Sitting Semi-Fowlers Blood Pressure Location Left Arm Left Arm History Since Last Visit- (Skip if this is Patient's initial visit) Have you changed medications since your No last visit? Any new allergies or adverse reactions No Had a fall/change in ADL's that may No increase risk of falls Signs or symptoms of abuse and/or No neglect since last visit Have you been in the hospital since your No last visit? Has dressing in place as prescribed No Has compression in place as prescribed No Has offloadiing in place as prescribed N/A Experienced any changes in pain level or No management Left Footwear Regular Shoe Regular Shoe Right Footwear Regular Shoe Regular Shoe Pain Scale: 0-10 Numeric Is Patient Pain Free? Yes No RLE -Description Burning -Comments FEELS LIKE AN ELECTRIC PULSE Communication Assessment Preferred language Mongolian Able to Read Yes Able to Write Yes Communication Tools None Caregiver Communication Skills No Impairment Impairment Right Hearing Abillity Normal Left Hearing Abillity Normal Visual Assistive Devices Glasses Teaching Assessment Preferences Verbal Barriers to Learning None Readiness To Learn Good Willingness to Engage in Self Management Med Activies Readiness to Engage in Self Management Med Activities Anxiety Level Calm Cooperation Cooperative Perception Coherent Interest in Health Problem Asks Questions Education Importance Acknowledges Need Does Patient Smoke tobacco or other No substances Smoking Status Never smoker Is Patient Diabetic No Functional Assessment Recent Decline in Ability to Perform Denies Any Declines Culture/Congregational/Customer Counter Representative Cultural/Congregational Needs that may affect No Treatment Plan Would you allow our hospital forensic engineer to No meet you for the purpose of spiritual/ emotional support? Customer Counter Representative to contact place of druze No Teaching: Wound Center Compression Wraps & Stockings -Person Taught Patient -Teaching Method Discussion, Demonstration -Response to teaching Reinforcement Needed WC - Nurse 1 - General Ulcer Measurement Start: 04/16/25 08:22 Freq: Status: Active Protocol: Activity Type Activity Date Activity User E-sign Co-sign Detail Recorded Client Recorded Date Recorded By Document 04/16/25 08:22 SHANNA [id number] 04/16/25 08:27 JF Edit Result 04/16/25 08:22 JF (1) [id number] 04/16/25 08:29 JF Document 04/23/25 08:08 KW [id number] 04/23/25 08:16 KW (1) 3-L LATERAL LEG\ - Combined with other wound => No - Current Size (cm) - Length => 1.0 - Current Size (cm) - Width => 0.7 - Current Size (cm) - Depth => 0.1 - Total Square Cm => 0.70 - Photo Taken => Yes - Epithelialization => Medium 34-66% - Tunneling => No - Undermining/Tunneling => No - Circular Undermining => No - Exudate Amt => Small - Exudate Type => Serosanguineous - Wound Margin => Flat & Intact - Granulation Amt => Medium (34-66%) - Granulation Quality => [place] - Slough/Fibrin => Yes - Necrosis Amt => Small (1-33%) - Necrotic Tissue Type => Adherent Slough - Structure Exposed => N/A - Texture (Daily-wound Skin Appearance) => Assessed,Localized => Edema - Moisture (Daily-wound Skin Appearance) => Assessed,Dry/Scaly - Color (Daily-wound Skin Appearance) => Assessed, => Hemosiderin => Staining - Temperature (Daily-wound Skin => No Abnormality (Pt Appearance) => Warm) - Tenderness on Palpation (Daily-wound => No Skin Appearance) - Ulcer Cleansing => Rinsed/Irrigated => with Saline - Foul Odor after Cleansing => No - Anesthetic Used => 4% Lidocaine => Solution 2-RLE LATERAL - Current Size (cm) - Length => 2 - Current Size (cm) - Width => 3.5 - Current Size (cm) - Depth => 0.1 - Total Square Cm => 7.0 - Photo Taken => Yes - Epithelialization => Small 1-33% - Tunneling => No - Undermining/Tunneling => No - Circular Undermining => No - Classification - Thickness => Full Thickness => without Exposed => Support Structure - Exudate Amt => Medium - Exudate Type => Serosanguineous - Wound Margin => Distinct, Outline => Attached - Granulation Amt => Small (1-33%) - Granulation Quality => [place] - Slough/Fibrin => Yes - Necrosis Amt => Medium (34-66%) - Necrotic Tissue Type => Adherent Slough - Texture (Daily-wound Skin Appearance) => Assessed,Localized => Edema - Moisture (Daily-wound Skin Appearance) => Assessed,Dry/Scaly - Color (Daily-wound Skin Appearance) => Assessed - Temperature (Daily-wound Skin => No Abnormality (Pt Appearance) => Warm) - Tenderness on Palpation (Daily-wound => No Skin Appearance) - Ulcer Cleansing => Rinsed/Irrigated => with Saline - Foul Odor after Cleansing => No - Anesthetic Used => 4% Lidocaine => Solution 04/16/25 04/23/25 08:22 08:08 Wound Center Nurse 1 3-L LATERAL LEG\ -Combined with other wound No -Current Size (cm) - Length 1.0 0.9 -Current Size (cm) - Width 0.7 0.6 -Current Size (cm) - Depth 0.1 0.1 -Total Square Cm 0.70 0.54 -Date of Last Picture (Recall this 04/23/25 field) -Photo Taken Yes -Epithelialization Medium 34-66% Medium 34-66% -Tunneling No -Undermining/Tunneling No -Circular Undermining No -Exudate Amt Small Small -Exudate Type Serosanguineous Serosanguineous -Wound Margin Flat & Intact Distinct, Outline Attached -Granulation Amt Medium (34-66%) Large (67-100%) -Granulation Quality [place],Red -Slough/Fibrin Yes -Necrosis Amt Small (1-33%) -Necrotic Tissue Type Adherent Slough -Structure Exposed N/A -Texture (Daily-wound Skin Appearance) Assessed, Assessed Localized Edema -Moisture (Daily-wound Skin Appearance) Assessed,Dry/ No Abnormality Scaly -Color (Daily-wound Skin Appearance) Assessed, Assessed, Hemosiderin Hemosiderin Staining Staining -Temperature (Daily-wound Skin No Abnormality No Abnormality Appearance) (Pt Warm) (Pt Warm) -Tenderness on Palpation (Daily-wound No No Skin Appearance) -Ulcer Cleansing Rinsed/ Rinsed/ Irrigated with Irrigated with Saline Saline -Foul Odor after Cleansing No No -Anesthetic Used 4% Lidocaine 5% Lidocaine Solution Gel 2-RLE LATERAL -Current Size (cm) - Length 2 3 -Current Size (cm) - Width 3.5 1.6 -Current Size (cm) - Depth 0.1 0.1 -Total Square Cm 7.0 4.8 -Date of Last Picture (Recall this 04/23/25 field) -Photo Taken Yes -Epithelialization Small 1-33% -Tunneling No -Undermining/Tunneling No -Circular Undermining No -Classification - Thickness Full Thickness without Exposed Support Structure -Exudate Amt Medium Medium -Exudate Type Serosanguineous Serosanguineous -Wound Margin Distinct, Distinct, Outline Outline Attached Attached -Granulation Amt Small (1-33%) Large (67-100%) -Granulation Quality [place] Red -Slough/Fibrin Yes -Necrosis Amt Medium (34-66%) Small (1-33%) -Necrotic Tissue Type Adherent Slough Adherent Slough -Texture (Daily-wound Skin Appearance) Assessed, Assessed Localized Edema -Moisture (Daily-wound Skin Appearance) Assessed,Dry/ Assessed,Dry/ Scaly Scaly -Color (Daily-wound Skin Appearance) Assessed Assessed, Erythema, Hemosiderin Staining -Temperature (Daily-wound Skin No Abnormality No Abnormality Appearance) (Pt Warm) (Pt Warm) -Tenderness on Palpation (Daily-wound No No Skin Appearance) -Ulcer Cleansing Rinsed/ Rinsed/ Irrigated with Irrigated with Saline Saline -Foul Odor after Cleansing No No -Anesthetic Used 4% Lidocaine 5% Lidocaine Solution Gel Lower Limb Edema Present Yes Right Calf (cm) 43.5 42.5 Right Ankle (cm) 26.5 25 Left Calf (cm) 42.1 40.5 Left Ankle (cm) 25.7 24 - Nurse 2 - General Ulcer CM Notes Start: 04/16/25 08:22 Freq: Status: Active Protocol: Activity Type Activity Date Activity User E-sign Co-sign Detail Recorded Client Recorded Date Recorded By Document 04/16/25 08:34 JF [id number] 04/16/25 08:44 JF Document 04/23/25 08:52 DS [id number] 04/23/25 08:57 DS 04/16/25 04/23/25 08:34 08:52 Wound Center Nurse 2 3-L LATERAL LEG\ -Time 08:38 08:52 -Correct Patient Yes Yes -Correct Side, Site, Position Yes Yes -Correct Procedure Yes Yes -Procedure Performed Yes Yes -Type of Procedure Debridement Debridement -Clinical Debridement Subcutaneous Subcutaneous -Tissue Removed Subcutaneous Subcutaneous -Post Debridement (cm) - Length 1.0 0.8 -Post Debridement (cm) - Width 0.8 0.6 -Post Debridement (cm) - Depth 0.1 0.1 -Total Square (Post) (cm) 0.80 0.48 -Area of Debridement (cm) - Length 1.0 0.8 -Area of Debridement (cm) - Width 0.8 0.6 -Total Square (Area) (cm) 0.80 0.48 -Tunneling No No -Undermining/Tunneling No No -Circular Undermining No No -Wound/Ulcer Outcome Not Healed Not Healed -Ulcer Cleansing Rinsed/ GAUZE Irrigated with Saline -Foul Odor after Cleansing No No -Bioengineered Tissue No No -Bleeding Controlled with Pressure Pressure -Treatment Response Procedure Procedure Tolerated Well Tolerated Well -Offloading No -Debridement - Subq, 1st 20sq cm No Yes 2-RLE LATERAL -Time 08:39 08:53 -Correct Patient Yes Yes -Correct Side, Site, Position Yes Yes -Correct Procedure Yes Yes -Procedure Performed Yes Yes -Type of Procedure Debridement Debridement -Clinical Debridement Subcutaneous Subcutaneous -Tissue Removed Subcutaneous Subcutaneous -Post Debridement (cm) - Length 2.1 3.1 -Post Debridement (cm) - Width 3.6 2.0 -Post Debridement (cm) - Depth 0.1 0.1 -Total Square (Post) (cm) 7.56 6.20 -Area of Debridement (cm) - Length 2.1 3.1 -Area of Debridement (cm) - Width 3.6 2.0 -Total Square (Area) (cm) 7.56 6.20 -Tunneling No No -Undermining/Tunneling No No -Circular Undermining No No -Wound/Ulcer Outcome Not Healed Not Healed -Ulcer Cleansing Rinsed/ GAUZE Irrigated with Saline -Foul Odor after Cleansing No No -Bioengineered Tissue No No -Bleeding Controlled with Pressure Pressure -Treatment Response Procedure Procedure Tolerated Well Tolerated Well -Offloading No -Debridement - Subq, 1st 20sq cm No No Pain Scale: 0-10 Numeric Is Patient Pain Free? Yes Yes - Nurse 3 - General Ulcer D/C NN Start: 04/16/25 08:22 Freq: Status: Active Protocol: Activity Type Activity Date Activity User E-sign Co-sign Detail Recorded Client Recorded Date Recorded By Document 04/16/25 09:04 [id number] 04/16/25 09:04 04/16/25 09:04 Wound Care Center Nurse 3 3-L LATERAL LEG\ -Primary Dressing Applied Collagen Powder -Primary Dressing Covered/Secured with Dry Gauze, Secured with Tape -Collagen Powder 1 2-RLE LATERAL -Other Dressing HYDROGEL -Primary Dressing Covered/Secured with Dry Gauze, Secured with Tape BLE -Tubular Bandage Double Layer -Size of Tubigrip Used Size E -Size E ($) 4 Pain Scale: 0-10 Numeric Is Patient Pain Free? Yes - Visit Discharge Discharge Condition Stable Ambulatory Status Ambulatory Transportation Private Auto Medication Reconcilliation completed & No provided to patient/care provider Clinical Summary of Care Provided Yes Additional Wound Wound debrided: Left lateral calf venous stasis ulceration Laterality: Left Type of Debridement: Excisional debridement Anesthesia Used: 5% Lidocaine Gel Depth: Down to and including healthy tissue and in the subcutaneous layer Percentage of wound debrided: 100 Instrument Used: 5mm curette Tissue Removed: Bioburden and slough Severity: Fat Layer Exposed Amount of bleeding with debridement: Mild Bleeding Controlled with: Compression and gauze Patient tolerated procedure: Patient tolerated procedure well Charges/Coding Procedures Integumentary [id number]: [id number] Wilma subq tissue 20 sq cm/< Assessment/Plan Assessment/Plan (1) Venous stasis ulcer: CODE(S): I83.009 - Varicose veins of unspecified lower extremity with ulcer of unspecified site; L97.909 - Non-pressure chronic ulcer of unspecified part of unspecified lower leg with unspecified severity QUALIFIERS: Venous stasis ulcer site: calf Varicose vein presence: without varicose veins Laterality: right Non-pressure ulcer stage: with fat layer exposed Qualified Code(s): I87.2 - Venous insufficiency (chronic) (peripheral); L97.212 - Non-pressure chronic ulcer of right calf with fat layer exposed (2) Venous stasis ulcer: CODE(S): I83.009 - Varicose veins of unspecified lower extremity with ulcer of unspecified site; L97.909 - Non-pressure chronic ulcer of unspecified part of unspecified lower leg with unspecified severity QUALIFIERS: Venous stasis ulcer site: calf Varicose vein presence: without varicose veins Laterality: left Non-pressure ulcer stage: with fat layer exposed Qualified Code(s): I87.2 - Venous insufficiency (chronic) (peripheral); L97.222 - Non-pressure chronic ulcer of left calf with fat layer exposed (3) Venous stasis dermatitis of right lower extremity: CODE(S): I87.2 - Venous insufficiency (chronic) (peripheral) (4) Chronic venous insufficiency: CODE(S): I87.2 - Venous insufficiency (chronic) (peripheral) (5) Edema of right lower leg: CODE(S): R60.0 - Localized edema (6) Edema of left lower leg: CODE(S): R60.0 - Localized edema (7) Swelling of right lower extremity: CODE(S): M79.89 - Other specified soft tissue disorders (8) Swelling of left lower extremity: CODE(S): M79.89 - Other specified soft tissue disorders (9) Lipodermatosclerosis of both lower extremities: CODE(S): M79.3 - Panniculitis, unspecified (10) Hyperpigmentation: CODE(S): L81.9 - Disorder of pigmentation, unspecified (11) Obesity (BMI 30-39.9): CODE(S): E66.9 - Obesity, unspecified (12) History of tonsillectomy: CODE(S): Z90.89 - Acquired absence of other organs (13) History of elbow surgery: CODE(S): Z98.890 - Other specified postprocedural states (14) History of vasectomy: CODE(S): Z98.52 - Vasectomy status (15) History of left inguinal hernia repair: CODE(S): Z98.890 - Other specified postprocedural states; Z87.19 - Personal history of other diseases of the digestive system (16) Essential (primary) hypertension: CODE(S): I10 - Essential (primary) hypertension (17) Asthma: CODE(S): J45.909 - Unspecified asthma, uncomplicated (18) History of pulmonary embolism: CODE(S): Z86.711 - Personal history of pulmonary embolism PLAN: Plan This is a 59-year-old male with a long history of chronic venous insufficiency and associated manifestations. The patient presented with a venous ulceration on the lateral aspect of each calf. He also suffers from chronic lower extremity swelling and edema. A lengthy discussion has been undertaken regarding the conservative measures appropriate to the management of the patient's chronic venous disease. The patient has been encouraged to continue sleeping on a flat surface at night. Leg elevation has been encouraged during daytime hours, as much as possible. Leg elevation is to be to heart level, or higher. Prolonged idle sitting has been discouraged. Ambulation and activity have been encouraged. We are to continue compression to the lower extremities by means of double Tubigrips. These are to be donned upon awakening each day, and doffed at bedtime. We are to continue the use collagen hydrogel and Adaptictopically to each ulceration on a daily basis. The patient has been instructed in the appropriate means of application. Moisturizing skin lotion has been recommended for the dry, scaly dermatitis in the right gaiter area. Weight losshas also been discussed. For the long-term, the patient will require either graduated compression stockings or CircAid Velcro compression garments for the purpose of compression. He appears to prefer CircAid Velcro compression garments. We are to obtain a venous duplex examination of the lower extremitiesto assess superficial venous competence. The patient is to return in 1 week forreevaluation. Total time: 26 minutes 04/25/25 [id number] <Electronically signed by Randal Ford MD> Cosigner Signature (if applicable): CC: ~ Signed [facility] Work Phone: History and physical note 04-25-2025 Note Date & Type Note Facility 04-25-2025 History and physi yamel note [facility] History and physical note 04-17-2025 Note Date & Type Note Facility 04-17-2025 History and physi yamel note Note Date/Time April 17, 2025 4:07pm [facility] [address] [place] [address] H&P Exam - Wound Care 04/17/25 1535 MR#: [id number] Acct: [id number] Name: ALISTAIR FUENTES II Rep #:[id number] : 1965 59 From: Randal Rodriguez PCP: Dr. Baudilio Ku, DO Status:REG RCR Location: History of Present Illness Date of Service: 04/16/25 Chief Complaint: Venous stasis ulcerations of the right and left calves History of Wound: This is a 59-year-old male with a history of chronic venous insufficiency, venous hypertension with inflammation, and venous stasis ulcerations in his lower extremities. He presented with an ulceration on the lateral aspect of both the right and left calves. The ulceration on the right calf had been present for approximately 3 weeks. The ulceration on the left calf has been present for approximately 1 week. The patient has been treated at the [facility] in the past for lower extremity venous stasis ulcerations. He has also undergone a right lower extremity endovenous laser ablation procedure several years ago. The patient suffers from chronic swelling and edema in his lower extremities bilaterally. Graduated compression stockings have been previously prescribed, but the patientis unable to don the stockings due to his inability to bend over. The patient is also noted to have a history of pulmonary embolism. He sleeps on a flat mattress at night. The patient has been referred by his primary care physician,Dr. Ku, who has recently treated the patient for bilateral lower extremitycellulitis. He had been using antibiotic ointment topically to the ulcerations in his lower extremities. The patient has completed a 7-day course of cephalexin 500 mg p.o. every 6 hours for a total of 7 days. The patient is mildly obese. He is not diabetic. [facility]LY [facility] Medical History Venous stasis ulcer Lipodermatosclerosis of both lower extremities History of pulmonary embolism Hyperpigmentation Obesity (BMI 30-39.9) Obesity (BMI 30.0-34.9) Venous stasis ulcer Venous stasis dermatitis of right lower extremity Hypertension Lipodermatosclerosis of right lower extremity Chronic venous insufficiency Edema of left lower leg Edema of right lower leg Swelling of left lower extremity Swelling of right lower extremity Traumatic injury of right lower extremity (07/2017) Umbilical hernia GERD (gastroesophageal reflux disease) Asthma Hypothyroidism Essential (primary) hypertension Left ventricular systolic dysfunction Home Medications ?Medication ?Instructions ?Recorded ?Last Taken ?Type amlodipine 10 mg tablet 10 mg PO DAILY 08/05/17 Unkn own History carvedilol 25 mg tablet 25 mg PO BID 08/05/17 Unknow n History losartan 100 mg tablet 100 mg PO DAILY 08/05/17 Unk nown History montelukast 10 mg tablet 10 mg PO DAILY 08/05/17 Unkn own History albuterol sulfate 90 mcg/actuation 2 puff inhalation Q 4H PRN PRN Sob 05/30/19 Unknown History aerosol inhaler &/Or Wheezing hydrochlorothiazide 25 mg tablet 25 mg PO DAILY #90 ta bs 07/20/19 Unknown Rx fluticasone fur. 200 mcg-umeclid 1 inh inhalation JILLIAN Y 04/17/21 Unknown History 62.5 mcg-vilant 25 mcg inhalat.powder (Trelegy Ellipta) furosemide 20 mg tablet 40 mg PO DAILY 08/03/22 Unkn own History potassium chloride 20 mEq 20 meq PO DAILY 08/03/22 Unk nown History tablet,extended release Allergy/AdvReac Type Severity Reaction Status Date / Time No Known Allergies Allergy Verified 04/14/23 10:25 Family History Mother Heart disease CAD (coronary artery disease) Lung cancer Grandmother Heart disease Sister Thyroid cancer Father Stomach cancer Other Cancer Surgical History History of tonsillectomy History of elbow surgery History of vasectomy History of left inguinal hernia repair History of elbow surgery H/O vasectomy History of tonsillectomy H/O left inguinal hernia repair Social History household members: spouse Smoking Status: Never smoker second hand exposure: No alcohol intake: current alcohol intake frequency: 3 or more drinks per day Alcohol type: beer details: beer substance use type: does not use meliza/anabaptism: None seatbelt use: always do you feel safe at home: Yes Vital Signs Vital Signs Vital Signs: Weight Weight: 266 lb Body Mass Index (BMI) 37.0 Physical Exam Const alert, oriented x3, no apparent distress, no limitations, healthy appearing and well nourished Constitutional Narrative: The patient is mildly obese, with a BMI of 37.1. General Appearance: cooperative, comfortable, well kempt and well developed Orientation / Consciousness: awake, oriented to person, oriented to place and oriented to time Exam Limitations: no limitations HEENT normocephalic and head/scalp atraumatic Head and Scalp: normal to inspection, normocephalic and atraumatic Face and Sinus: normal facial exam Nose: external nose normal External Ear: external ears normal Eyes EOMs intact bilaterally General Eye: normal appearance of both eyes Neck full ROM Resp normal respiratory effort, normal air movement, no retractions and no use of accessory muscles Effort and Inspection: able to speak in complete sentences Extremity no calf tenderness General Extremity: Negative for clubbing or cyanosis Skin Wound Narrative: Moderate swelling and edema are noted in the patient's lower extremities bilaterally. Hemosiderin staining and hyperpigmentation are noted in the gaiterareas bilaterally. No ulceration is noted on the distal right lateral calf. There is a dry eschar. Dimensions are documented elsewhere. The ulceration is full-thickness, extending through all layers of the dermis and into the subcutaneous tissues. Ulcer margins are well beveled. There is an ulceration on the left mid lateral calf. This is noted to be a dry eschar. Dimensions aredocumented elsewhere. The ulceration is full-thickness, extending through all layers of the dermis and into the subcutaneous tissues. Ulcer margins are well beveled. There is no sign of infection or cellulitis at either ulceration site. Neuro oriented x3, CN's II-XII intact bilaterally, moves all extremities, no focal motor deficits and no sensory deficits noted Sensorium / Orientation: awake, alert, oriented to person, oriented to place andoriented to time Speech: speech normal Psych Appearance: grossly normal and appropriate Attitude: calm Activity / Motor Behavior: appropriate eye contact Speech: normal speech Mood & Affect: euthymic mood Thought Process: normal thought process Thought Content: normal thought content Attention / Concentration: attention grossly intact Debridement Note Debridement Note Wound debrided: Right calf venous stasis ulceration Laterality: Right Type of Debridement: Excisional debridement Anesthesia Used: 5% Lidocaine Gel Depth: Down to and including healthy tissue and in the subcutaneous layer Percentage of wound debrided: 100 Instrument Used: 5mm curette Tissue Removed: Eschar and bioburden Severity: Fat Layer Exposed Amount of bleeding with debridement: Mild Bleeding Controlled with: Compression and gauze Patient tolerated procedure: Patient tolerated procedure well Post-Debridement Measurements and Additional Note: Post-Debridement Measurements/Treatment - Nurse 1 - General Ulcer Assessment Start: 04/16/25 08:22 Freq: Status: Active Protocol: AMANDA Activity Type Activity Date Activity User E-sign Co-sign Detail Recorded Client Recorded Date Recorded By Document 04/16/25 08:22 SHANNA [id number] 04/16/25 08:27 04/16/25 08:22 - Today's Visit Information Type of service Follow-up Visit (Physician/RECEIVER BULK SYSTEM ) Arrival Mode Ambulatory Patient Identification Verified (Name & Yes ) Patient Requires Transmission-Based No Precautions Height and Weight Height 5 ft 11 in Weight 266 lb Weight in Pounds 266.0 lbs Body Mass Index (BMI) 37.0 BMI Classification Obese Vital Signs Temperature (97.8 F-99.1 F) 97.5 F L Temperature Source Temporal Pulse Rate (60-100) 100 Pulse Location Monitor Respiratory Rate (12-18) 16 Respiratory rate source Observation Blood Pressure (90/60-120/80) 109/72 Blood Pressure Mean 84 Source Monitor Position Sitting Blood Pressure Location Left Arm History Since Last Visit- (Skip if this is Patient's initial visit) Left Footwear Regular Shoe Right Footwear Regular Shoe Pain Scale: 0-10 Numeric Is Patient Pain Free? Yes Communication Assessment Preferred language Mongolian Able to Read Yes Able to Write Yes Communication Tools None Caregiver Communication Skills No Impairment Impairment Right Hearing Abillity Normal Left Hearing Abillity Normal Visual Assistive Devices Glasses Teaching Assessment Preferences Verbal Barriers to Learning None Readiness To Learn Good Willingness to Engage in Self Management Med Activies Readiness to Engage in Self Management Med Activities Anxiety Level Calm Cooperation Cooperative Perception Coherent Interest in Health Problem Asks Questions Education Importance Acknowledges Need Does Patient Smoke tobacco or other No substances Smoking Status Never smoker Is Patient Diabetic No Functional Assessment Recent Decline in Ability to Perform Denies Any Declines Culture/Congregational/Customer Counter Representative Cultural/Congregational Needs that may affect No Treatment Plan Would you allow our hospital forensic engineer to No meet you for the purpose of spiritual/ emotional support? Customer Counter Representative to contact place of druze No Teaching: Wound Center Compression Wraps & Stockings -Person Taught Patient -Teaching Method Discussion, Demonstration -Response to teaching Reinforcement Needed WC - Nurse 1 - General Ulcer Measurement Start: 04/16/25 08:22 Freq: Status: Active Protocol: Activity Type Activity Date Activity User E-sign Co-sign Detail Recorded Client Recorded Date Recorded By Document 04/16/25 08:22 SHANNA [id number] 04/16/25 08:27 JF Edit Result 04/16/25 08:22 JF (1) [id number] 04/16/25 08:29 JF (1) 3-L LATERAL LEG\ - Combined with other wound => No - Current Size (cm) - Length => 1.0 - Current Size (cm) - Width => 0.7 - Current Size (cm) - Depth => 0.1 - Total Square Cm => 0.70 - Photo Taken => Yes - Epithelialization => Medium 34-66% - Tunneling => No - Undermining/Tunneling => No - Circular Undermining => No - Exudate Amt => Small - Exudate Type => Serosanguineous - Wound Margin => Flat & Intact - Granulation Amt => Medium (34-66%) - Granulation Quality => [place] - Slough/Fibrin => Yes - Necrosis Amt => Small (1-33%) - Necrotic Tissue Type => Adherent Slough - Structure Exposed => N/A - Texture (Daily-wound Skin Appearance) => Assessed,Localized => Edema - Moisture (Daily-wound Skin Appearance) => Assessed,Dry/Scaly - Color (Daily-wound Skin Appearance) => Assessed, => Hemosiderin => Staining - Temperature (Daily-wound Skin => No Abnormality (Pt Appearance) => Warm) - Tenderness on Palpation (Daily-wound => No Skin Appearance) - Ulcer Cleansing => Rinsed/Irrigated => with Saline - Foul Odor after Cleansing => No - Anesthetic Used => 4% Lidocaine => Solution 2-RLE LATERAL - Current Size (cm) - Length => 2 - Current Size (cm) - Width => 3.5 - Current Size (cm) - Depth => 0.1 - Total Square Cm => 7.0 - Photo Taken => Yes - Epithelialization => Small 1-33% - Tunneling => No - Undermining/Tunneling => No - Circular Undermining => No - Classification - Thickness => Full Thickness => without Exposed => Support Structure - Exudate Amt => Medium - Exudate Type => Serosanguineous - Wound Margin => Distinct, Outline => Attached - Granulation Amt => Small (1-33%) - Granulation Quality => [place] - Slough/Fibrin => Yes - Necrosis Amt => Medium (34-66%) - Necrotic Tissue Type => Adherent Slough - Texture (Daily-wound Skin Appearance) => Assessed,Localized => Edema - Moisture (Daily-wound Skin Appearance) => Assessed,Dry/Scaly - Color (Daily-wound Skin Appearance) => Assessed - Temperature (Daily-wound Skin => No Abnormality (Pt Appearance) => Warm) - Tenderness on Palpation (Daily-wound => No Skin Appearance) - Ulcer Cleansing => Rinsed/Irrigated => with Saline - Foul Odor after Cleansing => No - Anesthetic Used => 4% Lidocaine => Solution 04/16/25 08:22 Wound Center Nurse 1 3-L LATERAL LEG\ -Combined with other wound No -Current Size (cm) - Length 1.0 -Current Size (cm) - Width 0.7 -Current Size (cm) - Depth 0.1 -Total Square Cm 0.70 -Photo Taken Yes -Epithelialization Medium 34-66% -Tunneling No -Undermining/Tunneling No -Circular Undermining No -Exudate Amt Small -Exudate Type Serosanguineous -Wound Margin Flat & Intact -Granulation Amt Medium (34-66%) -Granulation Quality [place] -Slough/Fibrin Yes -Necrosis Amt Small (1-33%) -Necrotic Tissue Type Adherent Slough -Structure Exposed N/A -Texture (Daily-wound Skin Appearance) Assessed, Localized Edema -Moisture (Daily-wound Skin Appearance) Assessed,Dry/ Scaly -Color (Daily-wound Skin Appearance) Assessed, Hemosiderin Staining -Temperature (Daily-wound Skin No Abnormality Appearance) (Pt Warm) -Tenderness on Palpation (Daily-wound No Skin Appearance) -Ulcer Cleansing Rinsed/ Irrigated with Saline -Foul Odor after Cleansing No -Anesthetic Used 4% Lidocaine Solution 2-RLE LATERAL -Current Size (cm) - Length 2 -Current Size (cm) - Width 3.5 -Current Size (cm) - Depth 0.1 -Total Square Cm 7.0 -Photo Taken Yes -Epithelialization Small 1-33% -Tunneling No -Undermining/Tunneling No -Circular Undermining No -Classification - Thickness Full Thickness without Exposed Support Structure -Exudate Amt Medium -Exudate Type Serosanguineous -Wound Margin Distinct, Outline Attached -Granulation Amt Small (1-33%) -Granulation Quality [place] -Slough/Fibrin Yes -Necrosis Amt Medium (34-66%) -Necrotic Tissue Type Adherent Slough -Texture (Daily-wound Skin Appearance) Assessed, Localized Edema -Moisture (Daily-wound Skin Appearance) Assessed,Dry/ Scaly -Color (Daily-wound Skin Appearance) Assessed -Temperature (Daily-wound Skin No Abnormality Appearance) (Pt Warm) -Tenderness on Palpation (Daily-wound No Skin Appearance) -Ulcer Cleansing Rinsed/ Irrigated with Saline -Foul Odor after Cleansing No -Anesthetic Used 4% Lidocaine Solution Lower Limb Edema Present Yes Right Calf (cm) 43.5 Right Ankle (cm) 26.5 Left Calf (cm) 42.1 Left Ankle (cm) 25.7 WC - Nurse 2 - General Ulcer CM Notes Start: 04/16/25 08:22 Freq: Status: Active Protocol: Activity Type Activity Date Activity User E-sign Co-sign Detail Recorded Client Recorded Date Recorded By Document 04/16/25 08:34 SHANNA [id number] 04/16/25 08:44 SHANNA 04/16/25 08:34 Wound Center Nurse 2 3-L LATERAL LEG\ -Time 08:38 -Correct Patient Yes -Correct Side, Site, Position Yes -Correct Procedure Yes -Procedure Performed Yes -Type of Procedure Debridement -Clinical Debridement Subcutaneous -Tissue Removed Subcutaneous -Post Debridement (cm) - Length 1.0 -Post Debridement (cm) - Width 0.8 -Post Debridement (cm) - Depth 0.1 -Total Square (Post) (cm) 0.80 -Area of Debridement (cm) - Length 1.0 -Area of Debridement (cm) - Width 0.8 -Total Square (Area) (cm) 0.80 -Tunneling No -Undermining/Tunneling No -Circular Undermining No -Wound/Ulcer Outcome Not Healed -Ulcer Cleansing Rinsed/ Irrigated with Saline -Foul Odor after Cleansing No -Bioengineered Tissue No -Bleeding Controlled with Pressure -Treatment Response Procedure Tolerated Well -Offloading No -Debridement - Subq, 1st 20sq cm No 2-RLE LATERAL -Time 08:39 -Correct Patient Yes -Correct Side, Site, Position Yes -Correct Procedure Yes -Procedure Performed Yes -Type of Procedure Debridement -Clinical Debridement Subcutaneous -Tissue Removed Subcutaneous -Post Debridement (cm) - Length 2.1 -Post Debridement (cm) - Width 3.6 -Post Debridement (cm) - Depth 0.1 -Total Square (Post) (cm) 7.56 -Area of Debridement (cm) - Length 2.1 -Area of Debridement (cm) - Width 3.6 -Total Square (Area) (cm) 7.56 -Tunneling No -Undermining/Tunneling No -Circular Undermining No -Wound/Ulcer Outcome Not Healed -Ulcer Cleansing Rinsed/ Irrigated with Saline -Foul Odor after Cleansing No -Bioengineered Tissue No -Bleeding Controlled with Pressure -Treatment Response Procedure Tolerated Well -Offloading No -Debridement - Subq, 1st 20sq cm No Pain Scale: 0-10 Numeric Is Patient Pain Free? Yes WC - Nurse 3 - General Ulcer D/C NN Start: 04/16/25 08:22 Freq: Status: Active Protocol: Activity Type Activity Date Activity User E-sign Co-sign Detail Recorded Client Recorded Date Recorded By Document 04/16/25 09:04 RIRI [id number] 04/16/25 09:04 KW 04/16/25 09:04 Wound Care Center Nurse 3 3-L LATERAL LEG\ -Primary Dressing Applied Collagen Powder -Primary Dressing Covered/Secured with Dry Gauze, Secured with Tape -Collagen Powder 1 2-RLE LATERAL -Other Dressing HYDROGEL -Primary Dressing Covered/Secured with Dry Gauze, Secured with Tape BLE -Tubular Bandage Double Layer -Size of Tubigrip Used Size E -Size E ($) 4 Pain Scale: 0-10 Numeric Is Patient Pain Free? Yes WC - Visit Discharge Discharge Condition Stable Ambulatory Status Ambulatory Transportation Private Auto Medication Reconcilliation completed & No provided to patient/care provider Clinical Summary of Care Provided Yes Additional Wound Wound debrided: Left calf venous stasis ulceration Laterality: Left Type of Debridement: Excisional debridement Anesthesia Used: 5% Lidocaine Gel Depth: Down to and including healthy tissue and in the subcutaneous layer Percentage of wound debrided: 100 Instrument Used: 5mm curette Tissue Removed: Eschar and bioburden Severity: Fat Layer Exposed Amount of bleeding with debridement: Mild Bleeding Controlled with: Compression and gauze Patient tolerated procedure: Patient tolerated procedure well Charges/Coding Visit Charges Office Visits / Consults: [id number] L4 New 45min Assessment/Plan Assessment/Plan (1) Venous stasis ulcer: CODE(S): I83.009 - Varicose veins of unspecified lower extremity with ulcer of unspecified site; L97.909 - Non-pressure chronic ulcer of unspecified part of unspecified lower leg with unspecified severity QUALIFIERS: Venous stasis ulcer site: calf Varicose vein presence: without varicose veins Laterality: right Non-pressure ulcer stage: with fat layer exposed Qualified Code(s): I87.2 - Venous insufficiency (chronic) (peripheral); L97.212 - Non-pressure chronic ulcer of right calf with fat layer exposed (2) Venous stasis ulcer: CODE(S): I83.009 - Varicose veins of unspecified lower extremity with ulcer of unspecified site; L97.909 - Non-pressure chronic ulcer of unspecified part of unspecified lower leg with unspecified severity QUALIFIERS: Venous stasis ulcer site: calf Varicose vein presence: without varicose veins Laterality: left Non-pressure ulcer stage: with fat layer exposed Qualified Code(s): I87.2 - Venous insufficiency (chronic) (peripheral); L97.222 - Non-pressure chronic ulcer of left calf with fat layer exposed (3) Chronic venous insufficiency: CODE(S): I87.2 - Venous insufficiency (chronic) (peripheral) (4) Edema of right lower leg: CODE(S): R60.0 - Localized edema (5) Edema of left lower leg: CODE(S): R60.0 - Localized edema (6) Swelling of right lower extremity: CODE(S): M79.89 - Other specified soft tissue disorders (7) Swelling of left lower extremity: CODE(S): M79.89 - Other specified soft tissue disorders (8) Lipodermatosclerosis of both lower extremities: CODE(S): M79.3 - Panniculitis, unspecified (9) Hyperpigmentation: CODE(S): L81.9 - Disorder of pigmentation, unspecified (10) Obesity (BMI 30-39.9): CODE(S): E66.9 - Obesity, unspecified (11) History of tonsillectomy: CODE(S): Z90.89 - Acquired absence of other organs (12) History of elbow surgery: CODE(S): Z98.890 - Other specified postprocedural states (13) History of vasectomy: CODE(S): Z98.52 - Vasectomy status (14) History of left inguinal hernia repair: CODE(S): Z98.890 - Other specified postprocedural states; Z87.19 - Personal history of other diseases of the digestive system (15) Essential (primary) hypertension: CODE(S): I10 - Essential (primary) hypertension (16) Asthma: CODE(S): J45.909 - Unspecified asthma, uncomplicated (17) History of pulmonary embolism: CODE(S): Z86.711 - Personal history of pulmonary embolism PLAN: Plan This is a 59-year-old male with a long history of chronic venous insufficiency and associated manifestations. The patient presented with a venous ulceration on the lateral aspect of each calf. He also suffers from chronic lower extremity swelling and edema. A lengthy discussion has been undertaken regarding the conservative measures appropriate to the management of the patient's chronic venous disease. The patient has been encouraged to continue sleeping on a flat surface at night. Leg elevation has been encouraged during daytime hours, as much as possible. Leg elevation is to be to heart level, or higher. Prolonged idle sitting has been discouraged. Ambulation and activity have been encouraged. We are to implement compression to the lower extremities by means of double Tubigrips. These are to be donned upon awakening each day, and doffed at bedtime. We are to implement the use collagen hydrogel topically to each ulceration on a daily basis. The patient has been instructed in the appropriate means of application. Weight loss has also been discussed. For thelong-term, the patient will require either graduated compression stocking or CircAid Velcro compression garments for the purpose of compression. The patientis to return in 1 week for reevaluation. Total time: 48 minutes 04/17/25 1607 <Electronically signed by Randal Ford MD> Cosigner Signature (if applicable): CC: ~ Signed [facility] Work Phone: History and physical note 04-17-2025 Note Date & Type Note Facility 04-17-2025 History and physi yamel note [facility] Evaluation note Note Date & Type Note Facility Evaluation note Diagnosis Onset Date Edema of left lower leg acut e Edema of right lower leg acu te History of elbow surgery acu te History of left inguinal hernia repair acute History of tonsillectomy acu te History of vasectomy acute Lipodermatosclerosis of righ t lower extremity acute Obesity (BMI 30.0-34.9) acut e Swelling of left lower extremity acute Swelling of right lower extremity acute Venous stasis dermatitis of right lower extremity acute Venous stasis ulcer acute Asthma chronic Chronic venous insufficiency chronic Hypertension [facility] Work Phone: Evaluation note Note Date & Type Note Facility Evaluation note Diagnosis Onset Date Edema of left lower leg acut e Edema of right lower leg acu te History of elbow surgery acu te History of left inguinal hernia repair acute History of tonsillectomy acu te History of vasectomy acute Lipodermatosclerosis of righ t lower extremity acute Obesity (BMI 30.0-34.9) acut e Swelling of left lower extremity acute Swelling of right lower extremity acute Venous stasis dermatitis of right lower extremity acute Venous stasis ulcer acute Asthma chronic Chronic venous insufficiency chronic Hypertension chronic Edema of left lower leg acut e Edema of right lower leg acu te History of elbow surgery acu te History of left inguinal hernia repair acute History of tonsillectomy acu te History of vasectomy acute Lipodermatosclerosis of righ t lower extremity acute Obesity (BMI 30.0-34.9) acut e Swelling of left lower extremity acute Swelling of right lower extremity acute Venous stasis dermatitis of right lower extremity acute Venous stasis ulcer acute Asthma chronic Chronic venous insufficiency chronic Hypertension [facility] Work Phone: Evaluation note Note Date & Type Note Facility Evaluation note No assessment information availa ble [facility] Work Phone: Reason for referral (narrative) Note Date & Type Note Facility Reason for referral (narrative) No reason for referral information available [facility] Work Phone: Chief Complaint Chief Complaint Description Start Date right knee pain Preliminary chief co mplaint data, not yet signed by the author as of Instructions Instruction Description Start Date CompletedPlease follow-up wi th Primary Care Physician or Education Reviewer for treatment or adjustment of medication regarding elevated blood pressure.Patient advised to follow-up with Primary Care Physician for BMI management. Advance Directives No Advanced Directives Records Found Advance Directive Response Recorded Date/ Time Advance Directives No June 3:29pm Living Will No September 19 6:41pm Power of Personal Coach No September 19, 2021 6:41pm Advance Directive Response Recorded Date/ Time Advance Directives No June 4:29pm Living Will No September 19 7:41pm Power of Personal Coach No September 19, 2021 7:41pm Advance Directive Response Recorded Date/ Time Advance Directives No June 4:29pm Assessments There may be information available, but it has not been provided by the sender. Review of System There may be information available, but it has not been provided by the sender. Family History No Family History Records Found Relationship Condition Age at Onset Recorded Date/T jake Not Specified Malignant neoplasm Unknown mother Cardiac disease Unknown Coronary artery disease Unknown Malignant neoplasm of lung Unknown grandmother Cardiac disease Unknown sister Malignant neoplasm of thyroid gland Unkno wn father Malignant neoplasm of stomach Unknown History of Present Illness There may be information available, but it has not been provided by the sender. Chief Complaint and Reason for Visit Chief Complaint wound Reason for Visit Edema of left lower leg Edema of right lower leg History of elbow surgery History of left inguinal hernia repair History of tonsillectomy History of vasectomy Lipodermatosclerosis of right lower extremity Obesity (BMI 30.0-34.9) Swelling of left lower extremity Swelling of right lower extremity Venous stasis dermatitis of right lower extremity Venous stasis ulcer Asthma Chronic venous insufficiency Hypertension Chief Complaint wound wound Reason for Visit Edema of left lower leg Edema of right lower leg History of elbow surgery History of left inguinal hernia repair History of tonsillectomy History of vasectomy Lipodermatosclerosis of right lower extremity Obesity (BMI 30.0-34.9) Swelling of left lower extremity Swelling of right lower extremity Venous stasis dermatitis of right lower extremity Venous stasis ulcer Asthma Chronic venous insufficiency Hypertension Edema of left lower leg Edema of right lower leg History of elbow surgery History of left inguinal hernia repair History of tonsillectomy History of vasectomy Lipodermatosclerosis of right lower extremity Obesity (BMI 30.0-34.9) Swelling of left lower extremity Swelling of right lower extremity Venous stasis dermatitis of right lower extremity Venous stasis ulcer Asthma Chronic venous insufficiency Hypertension Chief Complaint wound wound ALLERGIC RHINITIS, ASTHMA, DYSPNEA Reason for Visit Edema of left lower leg Edema of right lower leg History of elbow surgery History of left inguinal hernia repair History of tonsillectomy History of vasectomy Lipodermatosclerosis of right lower extremity Obesity (BMI 30.0-34.9) Swelling of left lower extremity Swelling of right lower extremity Venous stasis dermatitis of right lower extremity Venous stasis ulcer Asthma Chronic venous insufficiency Hypertension Edema of left lower leg Edema of right lower leg History of elbow surgery History of left inguinal hernia repair History of tonsillectomy History of vasectomy Lipodermatosclerosis of right lower extremity Obesity (BMI 30.0-34.9) Swelling of left lower extremity Swelling of right lower extremity Venous stasis dermatitis of right lower extremity Venous stasis ulcer Asthma Chronic venous insufficiency Hypertension Chief Complaint ALLERGIC RHINITIS, A STHMA, DYSPNEA xolair 2 hour observation Chief Complaint xolair 2 hour observ ation xolair 2 hour observation Chief Complaint xolair 2 hour observ ation xolair 2 hour observation xolair 2 hour observation Chief Complaint xolair 2 hour observ ation xolair 2 hour observation xolair 2 hour observation Cough Chief Complaint Cough Chronic cough Chief Complaint Admit Date wound April 16, 2025 3:35pm wound April 23, 2025 3:53pm wound May 03, 2025 8:00am CVI May 03, 2025 8:11am Reason for Visit Admit Date Edema of left lower leg May 03, 2025 8:00am Edema of right lower leg May 03, 2025 8:00am History of elbow surgery May 03, 2025 8:00am History of left inguinal hernia repair S eptember 2024 8:00am History of pulmonary embolism May 03, 2025 8:00am History of tonsillectomy May 03, 2025 8:00am History of vasectomy May 03 8:00am Hyperpigmentation May 03, 2025 8:00am Lipodermatosclerosis of both lower extre mities May 03, 2025 8:00am Obesity (BMI 30-39.9) May 03 8:00am Swelling of left lower extremity Septemb er 2024 8:00am Swelling of right lower extremity Septem abilio 2024 8:00am Venous stasis dermatitis of right lower extremity May 03, 2025 8:00am Venous stasis ulcer May 03, 2025 8:00am Asthma May 03, 2025 8:00am Chronic venous insufficiency April 152024 8:00am Essential (primary) hypertension Septemb er 2024 8:00am Summary Purpose Additional Source Comments Reason for Visit (unrecogniz ed section and content) Reason For Visit Description New - 1st visit with practice Preliminary reason f or visit data, not yet signed by the author as of right knee pain Goals (unrecognized section and content) Goals may be documented in a n alternate sectionGoals may be documented in an alternate sectionGoals may be documented in an alternate sectionGoals may be documented in an alternate sectionGoals may be documented in an alternate sectionGoals may be documented in an alternate sectionGoals may be documented in an alternate sectionGoals may be documented in an alternate sectionGoals may be documented in an alternate section Care Teams (unrecognized sec tion and content) Team Status: Active Member Role Status Dates Dr. Baudilio Ku DO Family Provider Active Dr. Baudilio Ku DO Primary Care Provider Active Team Status: Inactive Member Role Status Dates Dr. Baudilio Ku DO Primary Care Provider Active Dr. Randal Ford MD Attending Provider Active Team Status: Inactive Member Role Status Dates Dr. Baudilio Ku DO Primary Care Provider Active [facility] [place] Attending Provider, Leslie mullen Active Team Status: Inactive Member Role Status Dates Dr. Baudilio Ku DO Primary Care Provider, Attendin g Provider Active Team Status: Inactive Member Role Status Dates Dr. Baudilio Ku DO Primary Care Prov ider, Attending Provider, Referring Provider Active Team Status: Active Member Role/Relationship Status Dates Dr. Baudilio Ku DO Primary care physician Active Team Status: Active Member Role/Relationship Status Dates Dr. Baudilio Ku DO Primary care physician Active Start: April 16, 2025 Dr. Baudilio Ku DO Referring Provider Active Start: April 16, 2025 Dr. Randal Ford MD Attending physician Active Start: April 16, 2025 Dr. Rnadal Ford MD Nurse Practitioner Active Start: April 16, 2025 Team Status: Active Member Role/Relationship Status Dates Dr. Baudilio Ku DO Primary care physician Active Start: April 23, 2025 Dr. Baudilio Ku DO Referring Provider Active Start: April 23, 2025 Dr. Randal Ford MD Attending physician Active Start: April 23, 2025 Dr. Randal Ford MD Nurse Practitioner Active Start: April 23, 2025 Team Status: Inactive Member Role/Relationship Status Dates Dr. Baudilio Ku DO Primary care physician Active Start: May 03, 2025 End: May 14, 2025 Dr. Randal Ford MD Attending physician Active Start: May 03, 2025 End: May 14, 2025 Dr. Randal Ford MD Referring Provider Active Start: May 03, 2025 End: May 14, 2025 Team Status: Active Member Role/Relationship Status Dates Dr. Randal Ford MD Attending physician Active Start: May 03, 2025 Dr. Randal Ford MD Referring Provider Active Start: May 03, 2025 (unrecognized sect ion and content) No Status Records Found INFORMATION SOURCE (unrecogn ized section and content) DATE CREATED AUTHOR 05/20/2025 [facility] FOR RECORDS PERTAINING TO PATIENTS WHO ARE [...] BE BASED ON THE PRIMARY CLINICAL RECORDS. [facility] provides no warranty or guarantee of the accuracy or completeness of information in this document.
== END | disposition home or self-care (01) ==
PROVIDERS: PCP Family Medicine; Referring Provider Otolaryngology; Visit Provider Otolaryngology
DX: R13.10 Dysphagia, unspecified (principal)
CPT/HCPCS: 74221